=== PATIENT | female | born 1950 | race Caucasian/White ===

== ENCOUNTER 2021-03-08 17:16 | Inpatient (IN) ==
[2021-03-08 18:35] LABS: Basophils # (auto) 0.02 K/uL (0-0.2); Basophils % (auto) 0.2 %; Eosinophils # (auto) 0.46 K/uL (0-0.5); Eosinophils % (auto) 5.3 %; Hematocrit (blood only) 24.9 % (37-47); Hemoglobin 7.7 g/dL (12.0-16.0); Immature Granulocytes # (auto) 0.04 K/uL (0.00-0.02); Immature Granulocytes % (auto) 0.5 %; Lymphocytes # (auto) 1.21 K/uL (1.2-3.4); Mean Corpuscular Hemoglobin 27.9 pg (25-34); Mean Corpuscular Hgb Conc 30.9 g/dL (32-36); Mean Corpuscular Volume 90.2 fL (80-100); Mean Platelet Volume 8.6 fL (7.4-10.4); Monocytes # (auto) 0.81 K/uL (0.11-0.59); Monocytes % (auto) 9.4 %; Neutrophils # (auto) 6.11 K/uL (1.4-6.5); Neutrophils % (auto) 70.6 %; Platelet Count 390 K/uL (130-400); RDW Coefficient of Variation 16.5 % (11.5-14.5); Red Blood Count 2.76 M/uL (4.2-5.4); White Blood Count 8.65 K/uL (4.8-10.8)
[2021-03-08 18:54] LABS: RBC Morphology Unremarkable
--- NOTE | 2021-03-08 18:57 | Emergency Department Note ---
History of Present Illness General Chief complaint: Abnormal Labs/Diagnostic Testing Stated complaint: ABNORMAL LABS, LOW HBG, ABNORMAL KIDNEY FUNCTION Time Seen by Provider: 03/08/21 18:27 Source: patient Mode of arrival: ambulatory Limitations: no limitations History of Present Illness Provider complaint: Kidney failure Maximum Pain Intensity: 0 This is a 71-year-old female with only one kidney presents to the ED with a chief complaint of abnormal labs showing kidney failure. She had the labs done at [facility] outpatient clinic this morning. She states that she has been feeling okay other than some dizziness off and on which she related to possibly a low blood pressure. She denies having any urinary symptoms. She has not seen any black stools or blood in her stools. She states that she had her second Moderna Covid vaccine on the . Denies any other complaints at this time. [facility] labs suggest that her baseline creatinine is 1.8. Her creatinine today was 4.3 with a BUN of 55. Hemoglobin today was 7.3 this morning. Home Medications Medication Instructions Recorded Confirmed Type Tresiba U-100 Insulin 10 unit SUBCUT HS 10/04/19 01/12/20 History acetaminophen [Tylenol Extra 1,000 mg PO Q6H PRN 10/04/19 01/12/20 History Strength] amlodipine 5 mg PO QAM 10/04/19 01/12/20 History aspirin [Aspir-81] 81 mg PO QAM 10/04/19 01/12/20 History atorvastatin 40 mg PO QAM 10/04/19 01/12/20 History ferrous sulfate 325 mg PO QAM 10/04/19 01/12/20 History furosemide 40 mg PO QAM 10/04/19 01/12/20 History insulin aspart U-100 [Novolog 0 unit SUBCUT TID 10/04/19 01/12/20 History U-100 Insulin aspart] isosorbide mononitrate 30 mg PO QPM 10/04/19 01/12/20 History magnesium 250 mg PO QAM 10/04/19 01/12/20 History nitroglycerin [Nitrostat] 4 mg SUBLINGUAL UD PRN 10/04/19 01/04/20 History telmisartan 40 mg PO QAM 10/04/19 01/12/20 History vitamin B complex-folic acid [B 1 tab PO QPM 10/04/19 01/12/20 History Complex 1 (with folic acid)] allopurinol 100 mg PO QAM 01/04/20 01/12/20 History Allergies Allergy/AdvReac Type Severity Reaction Status Date / Time amoxicillin Allergy Severe ANAPHYLAXIS Verified 01/12/20 10:22 methimazole Allergy Severe Chest Pain Verified 01/12/20 10:22 vancomycin Allergy Severe TOAN Verified 01/12/20 10:22 SYNDROME lisinopril Allergy Mild Cough Verified 01/12/20 10:22 NSAIDS (Non-Steroidal AdvReac Unknown NOT TO Verified 01/12/20 10:22 Anti-Inflamma TAKE BECAUSE OF REYNAUDS verapamil AdvReac Unknown Unknown Verified 01/12/20 10:22 Past Med/Surg History Medical History (Updated 03/08/21 @ 19:58 by Louis Ku DO) Chronic kidney disease STAGE 4-F/U DR GARZA Diabetes mellitus, type 2 GERD (gastroesophageal reflux disease) Gout Hyperlipidemia Hypertension Neuropathy HANDS AND FEET Renal agenesis Surgical History H/O foot surgery RIGHT H/O foot surgery RIGHT GREAT TOE AMPUTATION History of bilateral cataract extraction History of bilateral tubal ligation History of colonoscopy History of tonsillectomy Family History Father Family history of diabetes mellitus Sister Family history of diabetes mellitus Brother Family history of diabetes mellitus Other No family history of adverse response to anesthesia Social History Smoking Status: Former smoker Second Hand Exposure: Yes (father/ smoked); Hx Alcohol Use: Yes Alcohol type: wine Hx Substance Use: No Preferred Language: Kazakh Communication Ability: Effective Paper Slitter Required: No Beliefs That Will Affect Care: None Current Living Situation: Spouse Feels Safe at Home: Yes Assistive Devices: Glasses Review of Systems A total of 10 systems reviewed and were otherwise negative Physical Exam Vital Signs Vital Signs - 24 hr 03/08/21 17:18 03/08/21 18:44 Temperature 36.8 C 36.5 C Temperature Source Oral Oral Pulse Rate 95 H Pulse Rate [Left Finger] 87 Pulse Rhythm [Left Finger] Regular Pulse Strength [Left Finger] Normal Respiratory Rate 18 12 Respiratory Effort / Characteristics Non-Labored Non-Labored Respiratory Depth Normal Normal Respiratory Pattern Regular Regular Blood Pressure 147/73 H Blood Pressure [Left Arm] 154/74 H Blood Pressure Mean 97 Blood Pressure Mean [Left Arm] 100 Blood Pressure Position Sitting Blood Pressure Position [Left Arm] Sitting Pulse Oximetry 98 100 Oxygen Delivery Method Room Air Room Air Sepsis Recent Fever Within 48 Hours No Sepsis New/Unexplained Change in Mental Status No Sepsis Action Taken by Nursing No Action Required CONSTITUTIONAL/VITAL SIGNS: Reviewed / noted above. GENERAL: Non-toxic in appearance. INTEGUMENTARY: Warm, dry, and [place]. HEAD: Normocephalic. EYES: without scleral icterus or trauma. ENT/OROPHARYNX: clear and moist. LYMPHADENOPATHY/NECK: Is supple without lymphadenopathy or meningismus. RESPIRATORY: Lungs clear and equal. CARDIOVASCULAR: Regular rate and rhythm. GI/ABDOMEN: Soft and nontender. No organomegaly or pulsatile mass. No rebound or guarding. Normal bowel sounds. EXTREMITIES: Warm and well perfused. BACK: No CVA tenderness. NEUROLOGICAL: Intact without focal deficits. PSYCHIATRIC: normal affect. MUSCULOSKELETAL: Normally developed with good muscle tone. TRIAGE NURSING DOCUMENTATION REVIEWED. Course Administered Medications Sodium Chloride (Nss 1000ml) 1,000 mls @ 999 mls/hr IV .Q1H1M ONE Stop: 03/08/21 20:37 Last Admin: 03/08/21 19:52 Dose: 999 mls/hr Documented by: [id number] Medical Decision Making Differential Diagnosis Differential includes acute coronary syndrome, myocardial infarction, CVA, TIA, anemia, infection, pneumonia, UTI, pyelonephritis, poor nutrition, dehydration, electrolyte disturbance,hypoglycemia. Medical Records Attestation: I reviewed the patient's medical records. Home Medications Current Medication List: was personally reviewed by me Laboratory Data Attestation: I reviewed the patient's lab results. Result diagrams: 03/08/21 18:25 03/08/21 18:25 Lab Results 03/08/21 03/08/21 03/08/21 Range/Units 18:25 18:25 18:52 WBC 8.65 (4.8-10.8) K/uL RBC 2.76 L (4.2-5.4) M/uL Hgb 7.7 L (12.0-16.0) g/dL Hct 24.9 L (37-47) % MCV 90.2 (80-100) fL MCH 27.9 (25-34) pg MCHC 30.9 L (32-36) g/dL RDW Std Deviation 54.0 H (36.4-46.3) fL RDW Coeff of [place] 16.5 H (11.5-14.5) % Plt Count 390 (130-400) K/uL MPV 8.6 (7.4-10.4) fL Immature Gran % (Auto) 0.5 % Neut % (Auto) 70.6 % Lymph % (Auto) 14.0 % [place] % (Auto) 9.4 % Eos % (Auto) 5.3 % Baso % (Auto) 0.2 % Neut # (Auto) 6.11 (1.4-6.5) K/uL Lymph # (Auto) 1.21 (1.2-3.4) K/uL [place] # (Auto) 0.81 H (0.11-0.59) K/uL Eos # (Auto) 0.46 (0-0.5) K/uL Baso # (Auto) 0.02 (0-0.2) K/uL Immature Gran # (Auto) 0.04 H (0.00-0.02) K/uL RBC Morphology Unremarkable Sodium 139 (136-145) mmol/L Potassium 3.4 L (3.5-5.1) mmol/L Chloride 103 (98-107) mmol/L Carbon Dioxide 29 (21-32) mmol/L Anion Gap 7.0 (3-11) BUN 58 H (7-18) mg/dl Creatinine 4.33 H (0.6-1.2) mg/dl Est Cr Clr Drug Dosing 12.2 ml/min Est GFR ( Amer) 11.0 Est GFR (Non-Af Amer) 9.5 BUN/Creatinine Ratio 13.3 (10-20) Glucose 266 H (70-99) mg/dl Calcium 12.5 H* (8.5-10.1) mg/dl Total Bilirubin 0.3 (0.2-1) mg/dl AST 11 L (15-37) U/L ALT 17 (12-78) U/L Alkaline Phosphatase 111 (45-117) U/L Total Protein 7.3 (6.4-8.2) gm/dl Albumin 3.3 L (3.4-5.0) gm/dl Globulin 4.0 (2.5-4.0) gm/dl Albumin/Globulin Ratio 0.8 L (0.9-2) Blood Type O Positive Antibody Screen NEGATIVE ECG Data Attestation: I personally reviewed and interpreted this ECG as follows: Indication: + weakness Rate (beats per minute): 83 Rhythm: + normal sinus ECG Intervals/blocks: + First degree AV block, + Right Bundle branch block and + Normal QT-c ECG ST segments: no ST elevation ECG Findings: no PVCs MDM Narrative The patient'sPatient presents to the ED with acute kidney failure based on laboratory studies this morning. Details are noted above. Creatinine is 1.8 based on labs from April 2020 from the [employer] [facility]. Her creatinine today is 4.3 with a BUN of 55. Hemoglobin was 7.3 this morning. It is 7.7 now. Her twelve-lead EKG shows a sinus rhythm at a rate of 83 with a first-degree AV block and right bundle branch block. The patient's BUN is 58 and creatinine is 4.3 here. Glucose is 266 and calcium was 12.5. Patient was typed and screened. She was given a liter normal saline IV. She will be seen by the hospitalist for further inpatient evaluation and care. Impression & Plan Acute renal failure, Acute hyperglycemia, Hypercalcemia Discharge Plan Visit Data Chief Complaint: Abnormal Labs/Diagnostic Testing Stated Complaint: ABNORMAL LABS, LOW HBG, ABNORMAL KIDNEY FUNCTION ED Provider: Louis Ku Discharge Problem: Acute renal failure, Acute hyperglycemia, Hypercalcemia Patient Disposition: Being Evaluated by Hospitalist Forms Stand Alone Forms: [facility] Prescriptions Prescriptions: No Action aspirin [Aspir-81] 81 mg Tablet,Delayed Release (Dr/Ec) 81 mg PO QAM RF: 0 vitamin B complex-folic acid [B Complex 1 (with folic acid)] 0.4 mg Tablet 1 tab PO QPM RF: 0 furosemide 40 mg Tablet 40 mg PO QAM RF: 0 atorvastatin 40 mg Tablet 40 mg PO QAM RF: 0 isosorbide mononitrate 30 mg Tablet Extended Release 24 Hr 30 mg PO QPM RF: 0 amlodipine 5 mg Tablet 5 mg PO QAM RF: 0 insulin aspart U-100 [Novolog U-100 Insulin aspart] 100 unit/mL Solution 0 unit SUBCUT TID RF: 0 magnesium 250 mg Tablet 250 mg PO QAM RF: 0 telmisartan 20 mg Tablet 40 mg PO QAM RF: 0 Tresiba U-100 Insulin 100 unit/mL Solution 10 unit SUBCUT HS RF: 0 acetaminophen [Tylenol Extra Strength] 500 mg Tablet 1,000 mg PO Q6H PRN (Reason: Pain) RF: 0 ferrous sulfate 325 mg (65 mg iron) Tablet 325 mg PO QAM RF: 0 nitroglycerin [Nitrostat] 0.4 mg Tablet, Sublingual 4 mg sublingual UD PRN (Reason: Pain) RF: 0 allopurinol 100 mg Tablet 100 mg PO QAM RF: 0 Referrals Referrals: Tara Orta MD [Primary Care Provider] -
[2021-03-08 19:26] LABS: Albumin Globulin Ratio 0.8 (0.9-2); Albumin Level 3.3 gm/dl (3.4-5.0); BUN Creatinine Ratio 13.3 (10-20); Bilirubin,Total 0.3 mg/dl (0.2-1); Calcium 12.5 mg/dl (8.5-10.1); Creatinine Clr Calc Pharmacy 12.2 ml/min; Est GFR (Non-African American) 9.5; Potassium 3.4 mmol/L (3.5-5.1); Total Protein 7.3 gm/dl (6.4-8.2)
[2021-03-08] MEDS ORDERED: SODIUM CHLORIDE 0.9% 1000ML 1,000 ML IV ONE (19:37)
[2021-03-08 21:50] LABS: Influenza A virus by PCR Negative (Neg); Influenza B virus by PCR Negative (Neg); RSV by PCR Negative (Neg); SARS CoV2 RNA(COVID-19) InHosp NEGATIVE (Negative)
[2021-03-08] MEDS ORDERED: POLYETHYLENE (MIRALAX) 17 GM PACK PO PRN (22:38)
[2021-03-08] MEDS ORDERED: FAMOTIDINE 20 MG TAB PO PRN (22:38)
[2021-03-08] MEDS ORDERED: NITROGLYCERIN SL 0.4 MG/TAB TAB SL PRN (22:38)
[2021-03-08 22:40] LABS: Appearance Urine Clear (Clear); Bacteria Urine Automated Negative (Negative); Bilirubin Urine Negative (Negative); Blood Urine Trace (Negative); Cast Urine Automated 0 /lpf (0-5); Color Urine Yellow; Epithelial Cell Urine Auto 20-30 /lpf (0-5); Glucose Urine UA 2+ (Negative); Ketones Urine Negative (Negative); Leukocyte Esterase Urine Negative (Negative); Nitrite Urine Negative (Negative); Protein Urine 1+ (Negative); RBC Urine Automated 0-4 /hpf (0-4); Specific Gravity Urine 1.013 (1.000-1.030); Urobilinogen Urine Negative (Negative)
[2021-03-08] MEDS ORDERED: GLUCOSE 40% GEL 15 GM TUBE PO PRN (23:15)
[2021-03-08] MEDS ORDERED: DEXTROSE 50% 50 ML SYRINGE IV PRN (23:15)
[2021-03-08] MEDS ORDERED: GLUCAGON FOR INJ 1 MG VIAL SQ PRN (23:15)
[2021-03-08] MEDS ORDERED: CARBOHYDRATES FOR HYPOGLYCEMIA PO PRN (23:15)
[2021-03-08] MEDS ORDERED: GLUCOSE 10 TABS/TUBE PO PRN (23:15)
[2021-03-08] MEDS: INSULIN GLARGINE SOLOSTAR 100 UNITS/ML 3 ML PEN SC SCH (23:19)
[2021-03-08] MEDS: ISOSORBIDE MONO EXTENDED REL 30 MG TABCR PO SCH (23:24)
[2021-03-08] MEDS: VITAMIN B COMPLEX TAB PO SCH (23:24)
[2021-03-08] MEDS: SODIUM CHLORIDE 0.9% 1000ML 1,000 ML IV SCH (23:25)
--- NOTE | 2021-03-08 23:33 | History and Physical Report ---
DATE OF ADMISSION: 03/08/2021 CHIEF COMPLAINT: Abnormal labs. HISTORY OF PRESENT ILLNESS: This is a 71-year-old female with past medical history significant for type 2 diabetes, microalbuminuria diabetic nephropathy type 2, hyperlipidemia, hyperuricemia, high triglycerides, chronic CAD, history of chronic kidney disease stage IV, patent foramen ovale, hypertension, heart murmur, GERD, history of peripheral sensory neuropathy, anemia of chronic kidney disease, history of MRSA infection, history of smoking in the past, history of polypharmacy, who lives with her . Was sent to the hospital because of abnormal labs. The patient did not follow up for one year. Her labs were done today, it showed creatinine of 4.3, calcium of 11.6, hemoglobin of 7.3. Hemoglobin was 12.7 in November of 2019. Creatinine was 1.8 in April of 2020 and calcium was 9.4 in April 2020, so she was sent to the hospital. The patient is currently resting comfortably and hemodynamically stable, saturating fine. Denies any headache. She felt dizzy last month, but that has resolved. No blurred visions. No earache, no runny nose. She has a chronic runny nose, no sore throat. She had a cough a couple of days ago, but that got resolved. She thinks this is from her Moderna vaccine second dose which she received on 02/18/2021 as per the patient. Currently no cough, no fever, no chills. She gets shortness of breath on exertion. She had chest pain also a few days ago, thought to be from her vaccine, but resolved now. No nausea, no vomiting, no diarrhea, no constipation. She says stools are always black because of the iron tablets. Normal micturition. No blood in the stools. No abdominal pain. Her right lower extremity is always swollen. No erythema seen. . She has neuropathy and sometimes she has to use cane for ambulating. Appetite is good. No dysphagia. The patient states she was started on Ozempic for diabetes 1 year ago and she is tolerating okay. Sugars are running okay at home. Blood pressure is running okay at home as per the patient.Denies any intake of nsaid's ALLERGIES: NSAIDS, AMOXICILLIN, METHIMAZOLE, VANCOMYCIN, VERAPAMIL, LISINOPRIL. PAST MEDICAL HISTORY: As mentioned above. PAST SURGICAL HISTORY: Colonoscopy, ligation of oviducts, partial amputation of second right foot, tonsillectomy. MEDICATIONS: Tylenol 1000 mg p.o. q. 6 hours p.r.n., allopurinol 100 mg p.o. a.m., amlodipine 5 mg p.o. a.m., aspirin 81 mg p.o. a.m., B complex 1 tablet p.o. at bedtime, Crestor 40 mg p.o. daily, famotidine 20 mg p.o. daily p.r.n., ferrous sulfate 325 mg p.o. a.m., Lasix 40 mg p.o. a.m., NovoLog 9 units with breakfast and 14 units with lunch and 12 units with evening meal, isosorbide mononitrate 30 mg p.o. q.p.m., magnesium 250 mg p.o. a.m., nitroglycerin 0.4 mg sublingual p.r.n., Ozempic 0.5 mg subcutaneous weekly, telmisartan 40 mg p.o. a.m., Tresiba 10 units subcutaneous at bedtime, vitamin B complex 1 tablet a.m. FAMILY HISTORY: Significant for paternal aunt has breast cancer; brother has diabetes; father has diabetes; brother has end-stage renal disease from diabetes; father had stroke. SOCIAL HISTORY: . Former smoker, quit in 1968, smoked half pack a day for 0.5 years. Alcohol rarely. No drug use. REVIEW OF SYSTEMS: As per HPI. Rest of review of systems negative. PHYSICAL EXAMINATION: GENERAL: The patient is of moderate build, not in acute distress. VITAL SIGNS: Temperature 36.5, pulse 87, respiratory rate 12, blood pressure 154/74, oxygen 100% on room air. HEENT: Pupils equal, round, reactive to light. Oral mucosa moist. NECK: No JVD, no neck masses. CARDIOVASCULAR: S1, S2 heard, regular rate and rhythm, no murmur, no gallop. RESPIRATORY SYSTEM: Normal AP diameter. No accessory muscle use. No wheezing, no crackles. ABDOMEN: Soft, bowel sounds present, nontender. No distention. CENTRAL NERVOUS SYSTEM: Cranial nerves II-XII grossly intact, nonfocal. EXTREMITIES: Edema present in the right lower extremity. No erythema seen. LABORATORY DATA: WBC 8.6, hemoglobin 7.7, hematocrit 24.9, platelets 390. Sodium 139, potassium 3.4, chloride 103, bicarbonate 29, BUN 58, creatinine 4.3, serum glucose 266, calcium 12.5, total bilirubin 0.3, AST 11, ALT 17, alkaline phosphatase 111. EKG: Sinus rhythm with first-degree AV block at a rate of 83, right bundle branch block and left anterior fascicular block, QTC of 509. ASSESSMENT AND PLAN: This is a 71-year-old female who presents with acute kidney injury, hypercalcemia and anemia. 1. Acute kidney injury on chronic kidney disease stage IV: Baseline creatinine was 1.8 last year, it was 4.3 today. Etiology unclear. Will go ahead and check protein/creatinine ratio. Follow the urinalysis. Hold her home medication of losartan and Lasix. Avoid nephrotoxic agents. Starting on fluids, normal saline 125 mL per hour. The patient also has a solitary kidney. Right kidney is hypertrophied. Will get a renal ultrasound. Nephrology consulted and notified. Ozempic can cause SHANNAN from dehydration from nausea/vomiting. But patient don't have any GI symptoms. Closely monitor in the tele floor. 2. Hypercalcemia: Calcium is 12.5. The patient is not on any calcium supplement at home. We will check vitamin D levels, PTH levels. We will follow chest x-ray, TSH. Starting on fluids, normal saline 125 mL per hour and follow the repeat labs in a.m. The patient does not have complaint of any pain. We will keep multiple myeloma in differentials. Her LFTs are okay. 3. Anemia: The patient has history of anemia of chronic kidney disease. The patient is on iron supplements. Her hemoglobin was 12.7 in November of 2019 and currently today is 7.7. The patient denies any obvious signs of bleeding. We will check fecal occult blood, check iron studies, vitamin B12, and folate levels. Will follow the repeat labs. Continue iron supplement. Currently hemodynamically stable. 4. Diabetes: We will hold Ozempic. Continue her Tresiba. Placed on insulin sliding scale. Follow the blood sugars, follow HbA1c level. 5. History of hypertension: Holding telmisartan for now. Continue amlodipine and isosorbide mononitrate. Holding Lasix. Will monitor blood pressure. 6. History of hyperlipidemia: Continue Crestor. 7. History of gout: Continue allopurinol. 8. Prolonged QTc: We will follow the repeat EKG, avoid QT prolonging drugs. 9. History of coronary artery disease: Currently asymptomatic. Continue her aspirin and statin. Her echo from May 2019 shows EF of 65% and moderately concentric LVH, LV wall thickness. 10. History of gastroesophageal reflux disease: Continue on Pepcid as needed. 11. History of chronic osteomyelitis, status post right toe amputation in July 2019. 12. History of right atrophic kidney. 13. History of peripheral neuropathy and poor ambulatory status.Pt/Ot prior to discharge 14. Deep venous thrombosis prophylaxis: Sequential compression devices for now. 15. Disposition: Closely monitor in the tele floor. Level 1 full code as per my discussion with the patient. PT and OT prior to discharge. Social service to help with discharge planning. MTDD
[2021-03-08] MEDS: INSULIN ASPART 100 UNITS/ML 3 ML PEN SC SCH (23:36)
[2021-03-09 02:44] LABS: Creatinine Urine Random 43.2 mg/dl; Protein Creatinine Ratio Urine 1.8 (0-0.2); Total Protein Urine Random 76.8 mg/dl (0-11.9)
[2021-03-09] MEDS: ACETAMINOPHEN 325 MG TAB PO PRN ×2 (03:25→21:16)
[2021-03-09] MEDS ORDERED: POTASSIUM CHLORIDE CRTAB 20 MEQ TABCR PO STA (05:14)
[2021-03-09 05:39] LABS: Basophils # (auto) 0.03 K/uL (0-0.2); Basophils % (auto) 0.2 %; Eosinophils # (auto) 0.44 K/uL (0-0.5); Eosinophils % (auto) 3.6 %; Hematocrit (blood only) 24.3 % (37-47); Hemoglobin 7.5 g/dL (12.0-16.0); Immature Granulocytes # (auto) 0.04 K/uL (0.00-0.02); Immature Granulocytes % (auto) 0.3 %; Lymphocytes # (auto) 1.26 K/uL (1.2-3.4); Lymphocytes % (auto) 10.4 %; Mean Corpuscular Hemoglobin 27.6 pg (25-34); Mean Corpuscular Hgb Conc 30.9 g/dL (32-36); Mean Corpuscular Volume 89.3 fL (80-100); Mean Platelet Volume 8.3 fL (7.4-10.4); Monocytes # (auto) 1.08 K/uL (0.11-0.59); Monocytes % (auto) 8.9 %; Neutrophils # (auto) 9.24 K/uL (1.4-6.5); Neutrophils % (auto) 76.6 %; Platelet Count 359 K/uL (130-400); RDW Coefficient of Variation 16.5 % (11.5-14.5); Red Blood Count 2.72 M/uL (4.2-5.4); White Blood Count 12.09 K/uL (4.8-10.8)
[2021-03-09 06:13] LABS: RBC Morphology Unremarkable
[2021-03-09 06:17] LABS: Alanine Aminotransferase 17 U/L (12-78); Alkaline Phosphatase 101 U/L (45-117); Aspartate Aminotransferase 9 U/L (15-37); BUN Creatinine Ratio 14.8 (10-20); Bilirubin Direct < 0.1 mg/dl (0-0.2); Bilirubin,Total 0.3 mg/dl (0.2-1); Blood Urea Nitrogen 57 mg/dl (7-18); Calcium 10.2 mg/dl (8.5-10.1); Carbon Dioxide 27 mmol/L (21-32); Chloride 109 mmol/L (98-107); Creatinine Clr Calc Pharmacy 13.9 ml/min; Est GFR (African American) 12.8; Ferritin 27.4 ng/ml (8-388); Glucose 141 mg/dl (70-99); Iron 23 mcg/dl (35-150); Magnesium 2.9 mg/dl (1.8-2.4); Potassium 3.8 mmol/L (3.5-5.1); Sodium 141 mmol/L (136-145); Total Protein 6.6 gm/dl (6.4-8.2); Transferrin 237 mg/dl (200-360)
[2021-03-09] MEDS: SODIUM CHLORIDE 0.9% 1000ML 1,000 ML IV SCH ×3 (06:31→21:49)
[2021-03-09 06:39] LABS: Folate (Folic Acid) > 20.00 ng/ml (>5.38); Vitamin B12 947 pg/ml (193-986)
[2021-03-09 07:24] LABS: Estimated Average Glucose 146 mg/dl; Hemoglobin A1C 6.7 % (4.5-5.6)
--- NOTE | 2021-03-09 07:44 | Nephrology Consultation ---
Date of Consultation March 09, 2021 Assessment & Plan (1) Acute on chronic renal failure: in setting of essentially solitary kidney w/ baseline CKD 4 e GFR about 20 ml/min at baseline and historically 1/2 gm daily proteinuria > OP labs w/ creatinine 4.3 on March 08 and on presentation now 1.8 gm proteinuria in setting of new onset hypercalcemia and markedly worsened chronic anemia. ?relation to ozempic dose -- we have not had OP labs as indicated/desired; she did however have 1 set of labs after starting this medication a year back in April 2020 with creatinine 1.8 at the time. no urgent need for dialysis but cannot rule out need; she is interested in peritoneal dialysis if the need arises. response to IVF is promising though preliminary; differential >> SHANNAN on CKD or CKD progression ? related to increased semaglutide; concern also for multiple myeloma w/ renal involvement; or likeliest simply progression of advanced CKD in setting of DM, solitary kidney (though other lab parameters unexplained in this scenario) -diet appropriate -eval for myeloma as below -cont NS current rate -daily bmp Present on Admission?: Yes (2) Hypercalcemia: improving w/ NS- cCa today 11; await GLO labs; daily bmp; cont to avoid D supplements and Ca rich meds; w/ anemia and worse renal failure and this finding worry about myeloma; pt w/ 500 mg hx of proteinuria historically -cont ns, f/u labs -recheck proteinuria status now 2 gm (glucosuria may have a role; was 234 albuminuria [employer], much lower proteinuria would be expected than 2 gm but myeloma can present this way) >> have ordered kappa lambda light chains, serum YOLANDA, beta-2 microglobulin serum and urine, protein electrophoresis serum and urine Present on Admission?: Yes (3) Anemia: Unremarkable colonoscopy apart from adenomatous polyp for 5-year follow-up in January 2020. severe iron deficinecy (7% t stn on OP labs). ?cause -FOBT Hemoglobin generally in the 11's presenting hemoglobin low sevens. -agree w/ IV iron -low threshold for peripheral smear due to elevated ANC, relative monocytosis and some immature granulocytes in the setting of significantly worsened anemia -Ordered reticulocyte count as well as daily hgb -transfuse prn Present on Admission?: Yes (4) Abnormal renal ultrasound: Her right kidney has further atrophied and even disappeared in the decade since it was last imaged. Multiple renal cysts on the left with possible kidney stone. She has very little normal renal tissue and minimal renal reserves Present on Admission?: Yes History of Present Illness Reason for Consultation: hypercalcemia, SHANNAN on CKD Requesting Physician: Dr Aleman Attending Physician: Erasmo Molina, DO History of Present Illness 71 y/o F admitted last evening after our office sent her to ER d/t outpatient labs with acute on chronic renal failure and other lab abnormalities. Her baseline creatinine is labile but is generally somewhere in the low 2's; notably she had not had any outpt labs since 04/2020 despite plan to do so. Her creatinine yesterday was 4.3 w/ Ca 11.6; hgb 7.3 down from previous values gener ally in the . She did have an episode of SHANNAN on 08/2019. Past medical history includes atrophic right kidney, CKD 4/5, hypertension, diabetes, neuropathy with resultant ambulatory dysfunction, gout. Her Ozempic dose was doubled in November of this year but she did not tolerate it and went back to previous dose she'd been on since starting medication 01/2020. She had an essentially unremarkable colonoscopy January 2020 with an adenomatous polyp for repeat study in 5 years. On 2009 renal ultrasound, right kidney dimensions were 5.5 x 4 cm, atrophic. She has been feeling relatively well >> had second covid vaccine, remains active cleaning her home and cooking for her . No regular exercise program. She has had an approximately 30 pound weight loss over the past year, which she attributed to Ozempic. No fevers or chills. No night sweats. No shortness of breath. Does endorse fatiguing more quickly than previously but not extremely so. No voiding concerns. No bleeding. She does have a rash on her bilateral legs in the area of the knees which came on shortly after second Covid vaccine in mid February. Was initially pruritic but no longer. No NSAIDs. Allergies Allergy/AdvReac Type Severity Reaction Status Date / Time amoxicillin Allergy Severe ANAPHYLAXIS Verified 03/08/21 20:00 methimazole Allergy Severe Chest Pain Verified 03/08/21 20:00 vancomycin Allergy Severe TOAN Verified 03/08/21 20:00 SYNDROME lisinopril Allergy Mild Cough Verified 03/08/21 20:00 NSAIDS (Non-Steroidal AdvReac Unknown NOT TO Verified 03/08/21 20:00 Anti-Inflamma TAKE BECAUSE OF REYNAUDS verapamil AdvReac Unknown Unknown Verified 03/08/21 20:00 Home Medications Medication Instructions Recorded Confirmed Type Tresiba U-100 Insulin 10 unit SUBCUT HS 10/04/19 03/08/21 History acetaminophen [Tylenol Extra 1,000 mg PO Q6H PRN 10/04/19 03/08/21 History Strength] amlodipine 5 mg PO QAM 10/04/19 03/08/21 History aspirin [Aspir-81] 81 mg PO QAM 10/04/19 03/08/21 History ferrous sulfate 325 mg PO QAM 10/04/19 03/08/21 History furosemide 40 mg PO QAM 10/04/19 03/08/21 History insulin aspart U-100 [Novolog 0 unit SUBCUT TID 10/04/19 03/08/21 History U-100 Insulin aspart] isosorbide mononitrate 30 mg PO QPM 10/04/19 03/08/21 History magnesium 250 mg PO QAM 10/04/19 03/08/21 History nitroglycerin [Nitrostat] 4 mg SUBLINGUAL UD PRN 10/04/19 03/08/21 History telmisartan 40 mg PO QAM 10/04/19 03/08/21 History vitamin B complex-folic acid [B 1 tab PO QPM 10/04/19 03/08/21 History Complex 1 (with folic acid)] allopurinol 100 mg PO QAM 01/04/20 03/08/21 History B complex-vitamin C-folic acid 1 tab PO HS 03/08/21 03/08/21 History [Katty-Joya] Crestor 40 mg PO DAILY 03/08/21 03/08/21 History famotidine [Pepcid AC] 20 mg PO DAILY PRN 03/08/21 03/08/21 History semaglutide [Ozempic] 0.5 mg SUBCUT WK 03/08/21 03/08/21 History Patient History Medical History (Updated 03/09/21 @ 13:06 by Ale Izaguirre MD, PhD) Atrophy of right kidney 2009 [facility]G u/s w/ R kidney 5.5 x 4 cm Chronic kidney disease STAGE 4-F/U DR GARZA Diabetes mellitus, type 2 GERD (gastroesophageal reflux disease) Gout Hyperlipidemia Hypertension Neuropathy HANDS AND FEET Renal cyst, acquired, left Surgical History H/O foot surgery RIGHT H/O foot surgery RIGHT GREAT TOE AMPUTATION History of bilateral cataract extraction History of bilateral tubal ligation History of colonoscopy History of tonsillectomy Family History Father Family history of diabetes mellitus Sister Family history of diabetes mellitus Brother Family history of diabetes mellitus Other No family history of adverse response to anesthesia Social History Smoking Status: Former smoker Second Hand Exposure: Yes (father/ smoked); Hx Alcohol Use: Yes Alcohol type: wine Hx Substance Use: No Preferred Language: Sami Communication Ability: Effective Tank Pumper Panelboard Required: No Beliefs That Will Affect Care: None Current Living Situation: Spouse Current Living Situation Comment: Lives at home with Feels Safe at Home: Yes Safety Concerns: Feels Safe At This Time Assistive Devices: Cane and Glasses Assistive Devices Comment: Intermittent use of cane r/t neuropathy Review of Systems Review of Systems: All systems reviewed & are unremarkable except as noted in HPI & below Physical Exam Constitutional: well developed, well nourished, + obese and cooperative; no acute distress Eyes: EOM intact bilaterally ENMT: Ears: no external ear abnormality Nose: no external nose abnormality Mouth: + dry oral mucous membranes Neck: no nuchal rigidity Respiratory: normal respiratory effort; no respiratory distress and no cough Auscultation: lungs clear to auscultation bilaterally and + diminished lung sounds Cardiovascular: Rate/Rhythm: regular rate and regular rhythm Heart Sounds: + murmur Extremities: no edema Gastrointestinal (Abdomen): Inspection/Auscultation: abdomen normal to inspection and normal bowel sounds; abdomen not distended Percussion/Palpation: abdomen soft; abdomen nontender Musculoskeletal: Extremities: strength 5/5 throughout Skin: + rash (as below) Multiple 4 x 2 cm well demarcated salmon-colored plaques in the popliteal fossae bilaterally and on her lateral thighs; some scale Neurologic: frank, fluent speech, no tremor Psychiatric: A+Ox3, euthymic affect Speech: normal rate/rhythm/volume of speech Insight: good insight Judgement: good judgement Genitourinary: No Walter Results & Data ([facility]) Vital Signs (Past 12 Hours) Vital Signs Temp Pulse Pulse Pulse Resp BP Pulse Ox 03/09/21 03:11 36.9 C 90 18 164/71 H 91 03/08/21 23:01 80 03/08/21 22:46 36.5 C 03/08/21 22:38 36.8 C 88 88 16 180/75 H 95 Pulse Ox 03/09/21 03:11 03/08/21 23:01 03/08/21 22:46 03/08/21 22:38 95 Laboratory Results 03/09/21 05:23 03/09/21 05:23 Serum albumin 3.0 Renal osteodystrophy labs pending except 25 hydroxy vitamin D 16, PTH 23, TSH within normal limits Urinalysis: Clear yellow urine specific gravity 1013 pH 7; 1+ protein 2+ glucose trace blood; 20-30 epithelial cells per high-powered field; all other indices negative Protein to creatinine spot ratio 1.8 g Diagnostic Findings renal u/s this admission FINDINGS: The right kidney was not visualized. The left kidney measures 10.9 cm in length. The left kidney is mildly echogenic and lobulated. Several renal cysts are suspected, the largest of which measures 7 mm. There is a 4 mm lower pole echogenic left renal focus. This could present a calculus or vascular reflector. The left ureteral jet was visualized. IMPRESSION : 1. Nonvisualization of the right kidney 2. No evidence of left-sided hydronephrosis 3. Slight increase in left renal cortical echogenicity suggesting medical renal disease CXR > no acute process (1) Anemia Anemia type: unspecified type Qualified Code(s): D64.9 - Anemia, unspecified (2) Acute on chronic renal failure Acute renal failure type: unspecified Chronic kidney disease stage: stage 4 (severe) Qualified Code(s): N17.9 - Acute kidney failure, unspecified; N18.4 - Chronic kidney disease, stage 4 (severe)
--- NOTE | 2021-03-09 08:13 | Hospitalist Progress Note ---
Date of Service March 09, 2021 Assessment & Plan (1) Acute renal failure: (2) Hypercalcemia: (3) Neuropathy of foot: (4) CAD (coronary artery disease): (5) DM (diabetes mellitus) type II controlled with renal manifestation: (6) HTN (hypertension): (7) HLD (hyperlipidemia): (8) CKD (chronic kidney disease) stage 3, GFR 30-59 ml/min: ASSESSMENT AND PLAN: This is a 71-year-old female who presents with acute kidney injury, hypercalcemia and anemia. 1. Acute kidney injury on chronic kidney disease stage IV: Baseline creatinine was 1.8 last year, it was 4.3 on admission and trending down. Check protein/creatinine ratio. Follow the urinalysis. Hold her home medication of losartan and Lasix. Avoid nephrotoxic agents. Started on fluids, normal saline 125 mL per hour. The patient also has a solitary kidney. Right kidney is hypertrophied. Renal ultrasound. Nephrology consulted and notified. Ozempic can cause SHANNAN from dehydration from nausea/vomiting. But patient didn't have any GI symptoms. Tele floor. 2. Hypercalcemia: Calcium is 12.5 and trending down. The patient is not on any calcium supplement at home. Vitamin D levels are low, PTH. We will follow chest x-ray, TSH. Starting on fluids, normal saline 125 mL per hour and follow the repeat labs in a.m. The patient does not have complaint of any pain. We will keep multiple myeloma in differentials. Her LFTs are okay. 3. Anemia: The patient has history of anemia of chronic kidney disease. The patient is on iron supplements. Her hemoglobin was 12.7 in November of 2019 and currently today is 7.7. The patient denies any obvious signs of bleeding. We will check fecal occult blood, Iron is low despite PO Fe, vitamin B12, and folate levels. IV iron. Hold PO Fe, Currently hemodynamically stable. 4. Diabetes: We will hold Ozempic. Continue her Tresiba. Placed on insulin sliding scale. Follow the blood sugars, follow HbA1c level. 5. History of hypertension: Holding telmisartan for now. Continue amlodipine and isosorbide mononitrate. Holding Lasix. Will monitor blood pressure. 6. History of hyperlipidemia: Continue Crestor. 7. History of gout: Continue allopurinol. 8. Prolonged QTc: We will follow the repeat EKG, avoid QT prolonging drugs. 9. History of coronary artery disease: Currently asymptomatic. Continue her aspirin and statin. Her echo from May 2019 shows EF of 65% and moderately concentric LVH, LV wall thickness. 10. History of gastroesophageal reflux disease: Continue on Pepcid as needed. 11. History of chronic osteomyelitis, status post right toe amputation in July 2019. 12. History of right atrophic kidney. 13. History of peripheral neuropathy and poor ambulatory status.Pt/Ot prior to discharge 14. Deep venous thrombosis prophylaxis: Sequential compression devices for now. 15. Disposition: tele floor. Level 1 full code as per my discussion with the patient. PT and OT prior to discharge. Social service to help with discharge planning. ROS-No Headache, No Visual Changes, No Nausea, No Vomiting, No Fever, No Chills, No Neck Pain or Stiffness, No Chest Pain, No Palpitations, No SOB, No SUAREZ, No Cough, No Sputum, No Wheezing, No Abdominal Pain, No Diarrhea, No Hematemesis, No Hemoptysis, No Unexpected Weight Loss, No Flank pain, No Melena, No Hematochezia, No Frequency, No Urgency, No Burning, No Hematuria, No Rashes, No Diaphoresis. Appetite is Normal Physical Exam Gen-AAO x 3, NAD, Afebrile, obese Head-NCAT, EOMI, PERRLA, Anicteric Sclera, No Posterior Pharyngeal Erythema Neck-Supple, No JVD, No Thyromegaly, No Masses, No LAD, No Bruits Lungs-Clear to Auscultation Bilaterally, No Rales, No Rhonchi, No Wheezing, No Crepitus Chest-No S4, +S1, +S2, No S3, No Murmurs, No Rubs, No Gallops, No Ectopy Abdomen-Soft, Bowel Sounds Present, Non Tender, Non Distended, No Hepatomegaly, No Splenomegaly, No Palpable Masses, No Rebound, No Rigidity, No Guarding Musculoskeletal-Full Range of Motion Bilaterally, No CVAT Extremities-No Cyanosis, No Clubbing, No Edema Nuero-Cranial Nerves II-XII grossly intact, Motor WNL, DTRs WNL, Strength WNL, Non Focal Psych-Normal Mood Admission and Anticipated Discharge Date Admission Date: March 08, 2021 Results & Data Results & Data ([facility]) Vital Signs (Past 12 Hours) Vital Signs Temp Pulse Pulse Pulse Resp BP Pulse Ox 03/09/21 07:44 37.0 C 97 H 18 151/63 H 100 03/09/21 03:11 36.9 C 90 18 164/71 H 91 03/08/21 23:01 80 03/08/21 22:46 36.5 C 03/08/21 22:38 36.8 C 88 88 16 180/75 H 95 Pulse Ox 03/09/21 07:44 03/09/21 03:11 03/08/21 23:01 03/08/21 22:46 03/08/21 22:38 95 (1) Acute renal failure Acute renal failure type: unspecified Qualified Code(s): N17.9 - Acute kidney failure, unspecified
[2021-03-09] MEDS: INSULIN ASPART 100 UNITS/ML 3 ML PEN SC SCH ×4 (08:31→21:13)
[2021-03-09] MEDS: ASPIRIN 81 MG ECTAB PO SCH (08:38)
[2021-03-09] MEDS: amLODIPine BESYLATE 5 MG TAB PO SCH (08:38)
[2021-03-09] MEDS: ROSUVASTATIN CALCIUM 20 MG TAB PO SCH (08:38)
[2021-03-09] MEDS: allopurinoL 100 MG TAB PO SCH (08:39)
--- NOTE | 2021-03-09 08:59 | XRay Report ---
XR chest 1V portable HISTORY: 71 years-old Female congestion? Acute cough with congestion COMPARISON: Chest radiograph 09/07/2013 TECHNIQUE: Portable AP view the chest FINDINGS: Cardiac silhouette is enlarged. No pneumothorax, pleural effusion, airspace consolidation or overt pu lmonary edema. Degenerative changes of the shoulders and spine. IMPRESSION: No acute process. ACT 112: Negative or not required by law. The above report was generated using voice recognition software. It may contain grammatical, syntax o r spelling errors. Electronically signed by: Aditya Mcfarland M.D. 03/09/2021 8:58 AM
[2021-03-09] MEDS ORDERED: FERROUS SULFATE 325 MG TAB PO SCH (09:00)
--- NOTE | 2021-03-09 09:35 | Ultrasound Report ---
EXAMINATION: RENAL ULTRASOUND CLINICAL HISTORY: Acute renal insufficiency COMPARISON STUDY: FINDINGS: The right kidney was not visualized. The left kidney measures 10.9 cm in length. The left k idney is mildly echogenic and lobulated. Several renal cysts are suspected, the largest of which ford ures 7 mm. There is a 4 mm lower pole echogenic left renal focus. This could present a calculus or va scular reflector. The left ureteral jet was visualized. IMPRESSION : 1. Nonvisualization of the right kidney 2. No evidence of left-sided hydronephrosis 3. Slight increase in left renal cortical echogenicity suggesting medical renal disease ACT 112: Negative or not required by law. Electronically signed by: Julio Cesar Lucas M.D. 03/09/2021 9:34 AM
[2021-03-09] MEDS: IRON SUCROSE 300 MG in SODIUM CHLORIDE 0.9% 250 ML IV SCH (10:37)
[2021-03-09] MEDS: VITAMIN B COMPLEX TAB PO SCH (21:11)
[2021-03-09] MEDS: ISOSORBIDE MONO EXTENDED REL 30 MG TABCR PO SCH (21:11)
[2021-03-09] MEDS: INSULIN GLARGINE SOLOSTAR 100 UNITS/ML 3 ML PEN SC SCH (21:12)
[2021-03-10] MEDS ORDERED: PROMETHAZINE HCL 12.5 MG in SODIUM CHLORIDE 0.9% 50 ML IV STA (00:33)
[2021-03-10] MEDS ORDERED: LORazepam 0.25 MG/0.5 ML VIAL IV STA ×2 (01:36→02:16)
[2021-03-10] MEDS ORDERED: HALOPERIDOL LACTATE 5 MG/ML 1 ML VIAL IM STA ×2 (03:25→05:13)
[2021-03-10 05:55] LABS: Basophils # (auto) 0.02 K/uL (0-0.2); Basophils % (auto) 0.2 %; Eosinophils # (auto) 0.41 K/uL (0-0.5); Eosinophils % (auto) 3.8 %; Hematocrit (blood only) 23.9 % (37-47); Hemoglobin 7.4 g/dL (12.0-16.0); Immature Granulocytes # (auto) 0.04 K/uL (0.00-0.02); Immature Granulocytes % (auto) 0.4 %; Lymphocytes # (auto) 0.89 K/uL (1.2-3.4); Lymphocytes % (auto) 8.2 %; Mean Corpuscular Hemoglobin 27.7 pg (25-34); Mean Corpuscular Volume 89.5 fL (80-100); Mean Platelet Volume 8.5 fL (7.4-10.4); Monocytes # (auto) 0.82 K/uL (0.11-0.59); Monocytes % (auto) 7.6 %; Neutrophils # (auto) 8.67 K/uL (1.4-6.5); Neutrophils % (auto) 79.8 %; Platelet Count 349 K/uL (130-400); RDW Coefficient of Variation 16.6 % (11.5-14.5); RDW Standard Deviation 53.6 fL (36.4-46.3); Red Blood Count 2.67 M/uL (4.2-5.4); Reticulocyte % 3.7 % (0.5-2.0); White Blood Count 10.85 K/uL (4.8-10.8)
[2021-03-10 06:14] LABS: Albumin Level 3.1 gm/dl (3.4-5.0); BUN Creatinine Ratio 14.3 (10-20); Calcium 9.8 mg/dl (8.5-10.1); Est GFR (Non-African American) 12.1; Potassium 3.5 mmol/L (3.5-5.1)
[2021-03-10 06:17] LABS: Albumin Globulin Ratio 0.9 (0.9-2); Bilirubin,Total 0.3 mg/dl (0.2-1); Globulin 3.6 gm/dl (2.5-4.0); Total Protein 6.7 gm/dl (6.4-8.2)
[2021-03-10 06:26] LABS: Anisocytosis Present; Polychromasia 1+
[2021-03-10] MEDS ORDERED: LABETALOL HCL IV 5 MG/ML 20ML IV PRN (07:36)
--- NOTE | 2021-03-10 07:44 | Hospitalist Progress Note ---
Date of Service March 10, 2021 Assessment & Plan (1) Acute renal failure: (2) Hypercalcemia: (3) Neuropathy of foot: (4) CAD (coronary artery disease): (5) DM (diabetes mellitus) type II controlled with renal manifestation: (6) HTN (hypertension): (7) HLD (hyperlipidemia): (8) CKD (chronic kidney disease) stage 3, GFR 30-59 ml/min: ASSESSMENT AND PLAN: This is a 71-year-old female who presents with acute kidney injury, hypercalcemia and anemia. 1. Acute kidney injury on chronic kidney disease stage IV: Baseline creatinine was 1.8 last year, it was 4.3 on admission and trending down. Check protein/creatinine ratio. Follow the urinalysis. Hold her home medication of losartan and Lasix. Avoid nephrotoxic agents. Started on fluids, normal saline 125 mL per hour. The patient also has a solitary kidney. Right kidney is hypertrophied. Renal ultrasound. Nephrology consulted and notified. Ozempic can cause SHANNAN from dehydration from nausea/vomiting. But patient didn't have any GI symptoms. Tele floor. 2. Hypercalcemia: Calcium is 12.5 and trending down. The patient is not on any calcium supplement at home. Vitamin D levels are low, PTH. We will follow chest x-ray, TSH. Starting on fluids, normal saline 125 mL per hour and follow the repeat labs in a.m. The patient does not have complaint of any pain. We will keep multiple myeloma in differentials. Her LFTs are okay. 3. Anemia: The patient has history of anemia of chronic kidney disease. The patient is on iron supplements. Her hemoglobin was 12.7 in November of 2019 and currently today is 7.7. The patient denies any obvious signs of bleeding. We will check fecal occult blood, Iron is low despite PO Fe, vitamin B12, and folate levels. IV iron. Hold PO Fe, Currently hemodynamically stable. 4. Diabetes: We will hold Ozempic. Continue her Tresiba. Placed on insulin sliding scale. Follow the blood sugars, follow HbA1c level. 5. Hypertension: Holding telmisartan for now. Continue amlodipine and isosorbide mononitrate. Holding Lasix. Will monitor blood pressure. Add Lab etalol 20 IV Q6H Prn, May have HTN encephalopathy +AMS and Psychosis overnight, Uncontrollable. Trop Elevated today, will Trend 6. History of hyperlipidemia: Continue Crestor. 7. History of gout: Continue allopurinol. 8. Prolonged QTc: Avoid QT prolonging drugs. 9. History of coronary artery disease: Currently asymptomatic. Continue her aspirin and statin. Her echo from May 2019 shows EF of 65% and moderately concentric LVH, LV wall thickness. 10. History of gastroesophageal reflux disease: Continue on Pepcid as needed. 11. History of chronic osteomyelitis, status post right toe amputation in July 2019. 12. History of right atrophic kidney. 13. History of peripheral neuropathy and poor ambulatory status.Pt/Ot prior to discharge 14. Deep venous thrombosis prophylaxis: Sequential compression devices for now. 15. Disposition: tele floor. Level 1 full code as per my discussion with the patient. PT and OT prior to discharge. Social service to help with discharge planning. Labs checked, w/u in progress, Control BP, w/u for AMS when able ROS-Sedated today Physical Exam Gen-NAD, Afebrile, obese Head-NCAT Neck-No JVD Lungs-Clear to Auscultation Bilaterally, No Rales, No Rhonchi, No Wheezing, No Crepitus Chest-No S4, +S1, +S2, No S3, No Murmurs, No Rubs, No Gallops, No Ectopy Abdomen-Soft, Bowel Sounds Present, Non Tender, Non Distended, No Hepatomegaly, No Splenomegaly, No Palpable Masses, No Rebound, No Rigidity, No Guarding Musculoskeletal-NA Extremities-No Cyanosis, No Clubbing, No Edema Nuero-Sedated Psych-Sedated Admission and Anticipated Discharge Date Admission Date: March 08, 2021 Results & Data Results & Data ([facility]) Vital Signs (Past 12 Hours) Vital Signs Temp Pulse Pulse Pulse Resp BP BP 03/10/21 03:34 36.8 C 113 H 24 194/83 H 03/10/21 02:37 36.7 C 107 H 24 210/102 H 03/10/21 02:27 87 03/10/21 00:27 166/68 H 03/09/21 23:37 36.7 C 85 19 181/78 H 03/09/21 22:38 Pulse Ox Pulse Ox 03/10/21 03:34 100 03/10/21 02:37 99 03/10/21 02:27 03/10/21 00:27 03/09/21 23:37 98 03/09/21 22:38 95 (1) Acute renal failure Acute renal failure type: unspecified Qualified Code(s): N17.9 - Acute kidney failure, unspecified
[2021-03-10] MEDS ORDERED: HALOPERIDOL LACTATE 5 MG/ML 1 ML VIAL IM PRN (07:45)
[2021-03-10] MEDS: INSULIN ASPART 100 UNITS/ML 3 ML PEN SC SCH ×4 (08:33→20:57)
[2021-03-10] MEDS: allopurinoL 100 MG TAB PO SCH (08:34)
[2021-03-10] MEDS: ROSUVASTATIN CALCIUM 20 MG TAB PO SCH (08:35)
[2021-03-10] MEDS: amLODIPine BESYLATE 5 MG TAB PO SCH (08:35)
[2021-03-10] MEDS: ASPIRIN 81 MG ECTAB PO SCH (08:35)
[2021-03-10] MEDS: IRON SUCROSE 300 MG in SODIUM CHLORIDE 0.9% 250 ML IV SCH (08:40)
--- NOTE | 2021-03-10 09:26 | Cardiology Consultation ---
Date of Consultation March 10, 2021 Assessment & Plan (1) Acute on chronic renal failure: The patient has a history of chronic renal failure which is worsened and created electrolyte abnormalities. (2) Chest pain: The chest pain is difficult to evaluate at this time. She has plenty of medical problems that need to be addressed. She is currently sedated and resting comfortably. (3) Anemia: Most likely from chronic renal disease. The anemia could be contributing to her chest pain with her history of coronary artery disease. (4) DM (diabetes mellitus) type II controlled with renal manifestation: Currently not well managed which may be due to the patient's lack of follow-up and noncompliance. (5) Troponin level elevated: I believe the troponin elevation is multifactorial including acute on chronic renal disease, profound anemia and electrolyte abnormalities. I would not at this time recommend any additional cardiac testing. She is certainly not a cath candidate at this time. Due to her profound anemia, I would be reluctant to start her on anticoagulation. History of Present Illness Attending Physician: Erasmo Molina DO History of Present Illness This is a 71-year-old female with multiple medical problems as outlined below. She was sent in by her primary care physician due to abnormal labs taken recently. She was found to be profoundly anemic with progressive renal failure. The patient is heavily sedated this morning. Apparently, she became agitated through the night and was given sedation. The information is taken from the medical record and nursing. Over the past several weeks she has had intermittent atypical chest discomfort. She has not had close follow-up with medical appointments. Past medical history: Chronic coronary artery disease Type 2 diabetes mellitus with hemoglobin A1c goal of less than 7.5% (HCC) Microalbuminuric diabetic nephropathy (HCC) DM type 2 causing CKD stage 4 (HCC) Type 2 diabetes mellitus with diabetic neuropathy, unspecified (HCC) Benign hypertension with CKD (chronic kidney disease) stage IV (HCC) Anemia of chronic renal failure, stage 4 (severe) (HCC) Type 2 diabetes mellitus with diabetic dermatitis, without long-term current use of insulin (HCC) Patent foramen ovale Allergies Allergy/AdvReac Type Severity Reaction Status Date / Time amoxicillin Allergy Severe ANAPHYLAXIS Verified 03/08/21 20:00 methimazole Allergy Severe Chest Pain Verified 03/08/21 20:00 vancomycin Allergy Severe TOAN Verified 03/08/21 20:00 SYNDROME lisinopril Allergy Mild Cough Verified 03/08/21 20:00 NSAIDS (Non-Steroidal AdvReac Unknown NOT TO Verified 03/08/21 20:00 Anti-Inflamma TAKE BECAUSE OF REYNAUDS verapamil AdvReac Unknown Unknown Verified 03/08/21 20:00 Home Medications Medication Instructions Recorded Confirmed Type Tresiba U-100 Insulin 10 unit SUBCUT HS 10/04/19 03/08/21 History acetaminophen [Tylenol Extra 1,000 mg PO Q6H PRN 10/04/19 03/08/21 History Strength] amlodipine 5 mg PO QAM 10/04/19 03/08/21 History aspirin [Aspir-81] 81 mg PO QAM 10/04/19 03/08/21 History ferrous sulfate 325 mg PO QAM 10/04/19 03/08/21 History furosemide 40 mg PO QAM 10/04/19 03/08/21 History insulin aspart U-100 [Novolog 0 unit SUBCUT TID 10/04/19 03/08/21 History U-100 Insulin aspart] isosorbide mononitrate 30 mg PO QPM 10/04/19 03/08/21 History magnesium 250 mg PO QAM 10/04/19 03/08/21 History nitroglycerin [Nitrostat] 4 mg SUBLINGUAL UD PRN 10/04/19 03/08/21 History telmisartan 40 mg PO QAM 10/04/19 03/08/21 History vitamin B complex-folic acid [B 1 tab PO QPM 10/04/19 03/08/21 History Complex 1 (with folic acid)] allopurinol 100 mg PO QAM 01/04/20 03/08/21 History B complex-vitamin C-folic acid 1 tab PO HS 03/08/21 03/08/21 History [Katty-Joya] Crestor 40 mg PO DAILY 03/08/21 03/08/21 History famotidine [Pepcid AC] 20 mg PO DAILY PRN 03/08/21 03/08/21 History semaglutide [Ozempic] 0.5 mg SUBCUT WK 03/08/21 03/08/21 History Patient History Medical History Atrophy of right kidney 2009 [facility]G u/s w/ R kidney 5.5 x 4 cm Chronic kidney disease STAGE 4-F/U DR GARZA Diabetes mellitus, type 2 GERD (gastroesophageal reflux disease) Gout Hyperlipidemia Hypertension Neuropathy HANDS AND FEET Renal cyst, acquired, left Surgical History H/O foot surgery RIGHT H/O foot surgery RIGHT GREAT TOE AMPUTATION History of bilateral cataract extraction History of bilateral tubal ligation History of colonoscopy History of tonsillectomy Family History Father Family history of diabetes mellitus Sister Family history of diabetes mellitus Brother Family history of diabetes mellitus Other No family history of adverse response to anesthesia Social History Smoking Status: Former smoker Second Hand Exposure: Yes (father/ smoked); Hx Alcohol Use: Yes Alcohol type: wine Hx Substance Use: No Preferred Language: Bengali Communication Ability: Effective Sander Machine Required: No Beliefs That Will Affect Care: None marital status: Current Living Situation: Spouse Current Living Situation Comment: Lives at home with Feels Safe at Home: Yes Safety Concerns: Feels Safe At This Time Assistive Devices: Cane and Glasses Assistive Devices Comment: Intermittent use of cane r/t neuropathy Review of Systems Review of Systems: Unobtainable due to cognitive status Physical Exam Physical Exam: General: no acute distress and stated age Head: normocephalic, no masses, lesions, tenderness or abnormalities Eyes: conjunctiva are pink and non-injected, sclera clear Neck: supple, no adenopathy, no bruits, normal jugular venous pulse, no hepatojugular reflux Chest: normal shape and normal respiratory effort Lungs: clear to auscultation and percussion Cardiac Exam: - regular rate & rhythm, no murmurs gallops or rubs - normal S1, normal S2 Pulses: 2(+) throughout Abdomen: abdomen soft, non-tender, no abnormal masses and no hepatosplenomegaly Musculoskeletal: no gait disturbance, no joint inflammation, no deforming arthritis Extremities: no edema and no cyanosis Neuro: grossly normal exam Results & Data ([facility]) Vital Signs (Past 12 Hours) Vital Signs Temp Pulse Pulse Pulse Pulse Resp BP 03/10/21 07:41 36.6 C 105 H 20 172/87 H 03/10/21 03:34 36.8 C 113 H 24 194/83 H 03/10/21 02:37 36.7 C 107 H 24 03/10/21 02:27 87 03/10/21 00:27 03/09/21 23:37 36.7 C 85 19 181/78 H 03/09/21 22:38 BP Pulse Ox Pulse Ox 03/10/21 07:41 100 03/10/21 03:34 100 03/10/21 02:37 210/102 H 99 03/10/21 02:27 03/10/21 00:27 166/68 H 03/09/21 23:37 98 03/09/21 22:38 95 Laboratory Results Laboratory Results - last 24 hr 03/09/21 03/09/21 03/09/21 11:15 16:27 20:26 WBC RBC Hgb Hct MCV MCH MCHC RDW Std Deviation RDW Coeff of Fanta Plt Count MPV Immature Gran % (Auto) Neut % (Auto) Lymph % (Auto) [place] % (Auto) Eos % (Auto) Baso % (Auto) Reticulocyte % (Auto) Neut # (Auto) Lymph # (Auto) [place] # (Auto) Eos # (Auto) Baso # (Auto) Reticulocyte # Immature Gran # (Auto) Polychromasia Anisocytosis Sodium Potassium Chloride Carbon Dioxide Anion Gap BUN Creatinine Est Cr Clr Drug Dosing Est GFR ( Amer) Est GFR (Non-Af Amer) BUN/Creatinine Ratio Glucose POC Glucose 202 H 147 H 148 H Calcium Ionized Calcium Total Bilirubin AST ALT Alkaline Phosphatase Troponin I Total Protein Total Protein (PEP) Albumin Albumin (PEP) Globulin Albumin/Globulin Ratio Rvwxx-6-Elqjubgpk Tnrls-4-Rismbpmim Lsgg-2-Xawcffse Hpez-6-Gjovdghu Opss-4-Svfqssblcezcp Gamma Globulins Monoclonal Peak 3 Ser Monoclonl Protein Ser Monoclonal Prot 2 PEP Interpretation U Random Total Protein Ur Creatinine mg/dL Protein/Creatinin Ratio Urine Albumin (%) U Idsax-9-Eyhdcnte (%) U Ovoaf-1-Htqbmiuv (%) U Beta Globulin (%) U Hmqj-2-Kxyssgrzpkobn U Gamma Globulin (%) U Abnormal Prot Band 1 U Abnormal Prot Band 2 U Abnormal Prot Band 3 Urine PEP Interpret Serum Immunofixation Free Tyro LC, Quant Free Lambda LC, Quant Free Tyro/Lambda Ratio 03/09/21 03/09/21 03/10/21 20:41 20:41 02:36 WBC RBC Hgb Hct MCV MCH MCHC RDW Std Deviation RDW Coeff of Fanta Plt Count MPV Immature Gran % (Auto) Neut % (Auto) Lymph % (Auto) [place] % (Auto) Eos % (Auto) Baso % (Auto) Reticulocyte % (Auto) Neut # (Auto) Lymph # (Auto) [place] # (Auto) Eos # (Auto) Baso # (Auto) Reticulocyte # Immature Gran # (Auto) Polychromasia Anisocytosis Sodium Potassium Chloride Carbon Dioxide Anion Gap BUN Creatinine Est Cr Clr Drug Dosing Est GFR ( Amer) Est GFR (Non-Af Amer) BUN/Creatinine Ratio Glucose POC Glucose 138 H Calcium Ionized Calcium Total Bilirubin AST ALT Alkaline Phosphatase Troponin I Total Protein Total Protein (PEP) Albumin Albumin (PEP) Globulin Albumin/Globulin Ratio Urnxk-0-Mkflirqdy Xvxkc-0-Riexhndwx Abho-6-Rrwkdqsc Oqtr-7-Ezpgqynh Kmnj-3-Toanwajqvhlkg Gamma Globulins Monoclonal Peak 3 Ser Monoclonl Protein Ser Monoclonal Prot 2 PEP Interpretation U Random Total Protein Pending Ur Creatinine mg/dL Pending Protein/Creatinin Ratio Pending Urine Albumin (%) Pending U Njopx-5-Xhinhocn (%) Pending U Rtpiv-0-Rgteofaw (%) Pending U Beta Globulin (%) Pending U Ckwm-8-Jdadsvgqdlfvi Pending U Gamma Globulin (%) Pending U Abnormal Prot Band 1 Pending U Abnormal Prot Band 2 Pending U Abnormal Prot Band 3 Pending Urine PEP Interpret Pending Serum Immunofixation Free Tyro LC, Quant Free Lambda LC, Quant Free Tyro/Lambda Ratio 03/10/21 03/10/21 03/10/21 05:29 05:29 05:29 WBC 10.85 H RBC 2.67 L Hgb 7.4 L Hct 23.9 L MCV 89.5 MCH 27.7 MCHC 31.0 L RDW Std Deviation 53.6 H RDW Coeff of Fanta 16.6 H Plt Count 349 MPV 8.5 Immature Gran % (Auto) 0.4 Neut % (Auto) 79.8 Lymph % (Auto) 8.2 [place] % (Auto) 7.6 Eos % (Auto) 3.8 Baso % (Auto) 0.2 Reticulocyte % (Auto) 3.7 H Neut # (Auto) 8.67 H Lymph # (Auto) 0.89 L [place] # (Auto) 0.82 H Eos # (Auto) 0.41 Baso # (Auto) 0.02 Reticulocyte # 0.10 Immature Gran # (Auto) 0.04 H Polychromasia 1+ Anisocytosis Present Sodium 141 Potassium 3.5 Chloride 111 H Carbon Dioxide 21 Anion Gap 9.0 BUN 51 H Creatinine 3.54 H Est Cr Clr Drug Dosing 15.0 Est GFR ( Amer) 14.0 Est GFR (Non-Af Amer) 12.1 BUN/Creatinine Ratio 14.3 Glucose 164 H POC Glucose Calcium 9.8 Ionized Calcium Total Bilirubin 0.3 AST 18 ALT 18 Alkaline Phosphatase 97 Troponin I Total Protein 6.7 Total Protein (PEP) Pending Albumin 3.1 L Albumin (PEP) Pending Globulin 3.6 Albumin/Globulin Ratio 0.9 Lnnbs-3-Vzodnaogq Pending Zirgt-9-Oigwlahdt Pending Ilyb-6-Lxvbgwlp Pending Wjec-5-Ktxagitg Pending Xclc-9-Dactqnhumtvhd Pending Gamma Globulins Pending Monoclonal Peak 3 Pending Ser Monoclonl Protein Pending Ser Monoclonal Prot 2 Pending PEP Interpretation Pending U Random Total Protein Ur Creatinine mg/dL Protein/Creatinin Ratio Urine Albumin (%) U Ikxry-6-Bmozefuj (%) U Saqrj-6-Nipwjudu (%) U Beta Globulin (%) U Ceys-6-Ojszeylobsdgi U Gamma Globulin (%) U Abnormal Prot Band 1 U Abnormal Prot Band 2 U Abnormal Prot Band 3 Urine PEP Interpret Serum Immunofixation Pending Free Tyro LC, Quant Pending Free Lambda LC, Quant Pending Free Tyro/Lambda Ratio Pending 03/10/21 03/10/21 03/10/21 05:29 07:08 08:03 WBC RBC Hgb Hct MCV MCH MCHC RDW Std Deviation RDW Coeff of Fanta Plt Count MPV Immature Gran % (Auto) Neut % (Auto) Lymph % (Auto) [place] % (Auto) Eos % (Auto) Baso % (Auto) Reticulocyte % (Auto) Neut # (Auto) Lymph # (Auto) [place] # (Auto) Eos # (Auto) Baso # (Auto) Reticulocyte # Immature Gran # (Auto) Polychromasia Anisocytosis Sodium Potassium Chloride Carbon Dioxide Anion Gap BUN Creatinine Est Cr Clr Drug Dosing Est GFR ( Amer) Est GFR (Non-Af Amer) BUN/Creatinine Ratio Glucose POC Glucose 183 H Calcium Ionized Calcium 1.25 Total Bilirubin AST ALT Alkaline Phosphatase Troponin I 0.229 H* Total Protein Total Protein (PEP) Albumin Albumin (PEP) Globulin Albumin/Globulin Ratio Zxexg-7-Mkfnucpps Cdiwe-6-Gvxeksbrn Xvnx-7-Tllasghv Enog-1-Shjlptvq Uiaz-5-Orhzuahcawquj Gamma Globulins Monoclonal Peak 3 Ser Monoclonl Protein Ser Monoclonal Prot 2 PEP Interpretation U Random Total Protein Ur Creatinine mg/dL Protein/Creatinin Ratio Urine Albumin (%) U Jeews-5-Vjqdeqix (%) U Cpblv-6-Bgdckpoe (%) U Beta Globulin (%) U Kpag-0-Rrhyvmfsdzfol U Gamma Globulin (%) U Abnormal Prot Band 1 U Abnormal Prot Band 2 U Abnormal Prot Band 3 Urine PEP Interpret Serum Immunofixation Free Tyro LC, Quant Free Lambda LC, Quant Free Tyro/Lambda Ratio 03/10/21 08:03 WBC RBC Hgb Hct MCV MCH MCHC RDW Std Deviation RDW Coeff of Fanta Plt Count MPV Immature Gran % (Auto) Neut % (Auto) Lymph % (Auto) [place] % (Auto) Eos % (Auto) Baso % (Auto) Reticulocyte % (Auto) Neut # (Auto) Lymph # (Auto) [place] # (Auto) Eos # (Auto) Baso # (Auto) Reticulocyte # Immature Gran # (Auto) Polychromasia Anisocytosis Sodium Potassium Chloride Carbon Dioxide Anion Gap BUN Creatinine Est Cr Clr Drug Dosing Est GFR ( Amer) Est GFR (Non-Af Amer) BUN/Creatinine Ratio Glucose POC Glucose Calcium Ionized Calcium Total Bilirubin AST ALT Alkaline Phosphatase Troponin I 2.370 H* Total Protein Total Protein (PEP) Albumin Albumin (PEP) Globulin Albumin/Globulin Ratio Obpiu-6-Nzcfwmijh Iivue-0-Fhzhacqiz Ljou-2-Gvtszdhv Rsiz-9-Issmgctr Qyht-0-Xqjbwxtxggubc Gamma Globulins Monoclonal Peak 3 Ser Monoclonl Protein Ser Monoclonal Prot 2 PEP Interpretation U Random Total Protein Ur Creatinine mg/dL Protein/Creatinin Ratio Urine Albumin (%) U Tjvov-1-Kpotlejh (%) U Jsuwm-6-Bjmpvvrw (%) U Beta Globulin (%) U Qukd-9-Cuvumkmiahdwf U Gamma Globulin (%) U Abnormal Prot Band 1 U Abnormal Prot Band 2 U Abnormal Prot Band 3 Urine PEP Interpret Serum Immunofixation Free Tyro LC, Quant Free Lambda LC, Quant Free Tyro/Lambda Ratio Medications Administered Current Inpatient Medications Acetaminophen (Acetaminophen 325 Mg Tab) 650 mg PO Q4H PRN PRN Reason: Pain or Fever Stop: 04/07/21 22:37 Last Admin: 03/09/21 21:16 Dose: 650 mg Documented by: Allopurinol (Allopurinol 100 Mg Tab) 100 mg PO QAM [facility] Stop: 04/08/21 08:59 Last Admin: 03/10/21 08:34 Dose: 100 mg Documented by: Amlodipine Besylate (Amlodipine Besylate 5 Mg Tab) [facility] [place] Stop: 04/08/21 08:59 Last Admin: 03/10/21 08:35 Dose: 5 mg Documented by: Aspirin (Aspirin 81 Mg Ectab) 81 mg PO QAM [facility] Stop: 04/08/21 08:59 Last Admin: 03/10/21 08:35 Dose: 81 mg Documented by: Dextrose (Dextrose 50% 50 Ml Syringe) 25 - 50 ml IV UD PRN; Protocol PRN Reason: Hypoglycemia Protocol Stop: 04/07/21 23:14 Famotidine (Famotidine 20 Mg Tab) 20 mg PO DAILY PRN PRN Reason: Acid Reflux Stop: 04/07/21 22:37 Last Admin: 03/09/21 19:43 Dose: 20 mg Documented by: Glucagon (Glucagon For Inj 1 Mg Vial) 1 mg SQ UD PRN; Protocol PRN Reason: Hypoglycemia Protocol Stop: 04/07/21 23:14 Glucose (Glucose 40% Gel 15 Gm Tube) 15 - 30 gm PO UD PRN; Protocol PRN Reason: Hypoglycemia Protocol Stop: 04/07/21 23:14 Glucose (Glucose 10 Tabs/Tube) 4 - 8 tabs PO UD PRN; Protocol PRN Reason: Hypoglycemia Protocol Stop: 04/07/21 23:14 Haloperidol Lactate (Haloperidol Lactate 5 Mg/Ml 1 Ml Vial) 2 mg IM Q8H PRN PRN Reason: Agitation Stop: 04/09/21 07:44 Insulin Aspart (Insulin Aspart 100 Units/Ml 3 Ml Pen) 0 units SC [facility] Stop: 04/07/21 22:37 Last Admin: 03/10/21 08:33 Dose: 4 units Documented by: Insulin Glargine (Insulin Glargine Solostar 100 Units/Ml 3 Ml Pen) 10 units SC [facility] Stop: 04/07/21 22:59 Last Admin: 03/09/21 21:12 Dose: 10 units Documented by: Isosorbide Mononitrate (Isosorbide [place] Extended Rel 30 Mg Tabcr) 30 mg PO QPM [facility] Stop: 04/07/21 22:37 Last Admin: 03/09/21 21:11 Dose: 30 mg Documented by: Labetalol HCl (Labetalol Hcl Iv 5 Mg/Ml 20ml) 20 mg IV Q6H PRN PRN Reason: Blood Pressure - High Stop: 04/09/21 07:35 Miscellaneous (Carbohydrates For Hypoglycemia ) 15 - 30 gm PO UD PRN PRN Reason: Hypoglycemia Treatment Stop: 04/07/21 23:14 Nitroglycerin (Nitroglycerin Sl 0.4 Mg/Tab Tab) 0.4 mg SL UD PRN PRN Reason: Chest Pain Stop: 04/07/21 22:37 Polyethylene Glycol (Polyethylene (Miralax) 17 Gm Pack) 17 gm PO DAILY PRN PRN Reason: Constipation Stop: 04/07/21 22:37 Rosuvastatin Calcium (Rosuvastatin Calcium 20 Mg Tab) 40 mg PO DAILY [facility] Stop: 04/08/21 08:59 Last Admin: 03/10/21 08:35 Dose: 40 mg Documented by: Vitamin B Complex (Vitamin B Complex Tab) 1 tab PO QPM [facility] Stop: 04/07/21 22:59 Last Admin: 03/09/21 21:11 Dose: 1 tab Documented by: (1) Anemia Anemia type: unspecified type Qualified Code(s): D64.9 - Anemia, unspecified (2) Acute on chronic renal failure Acute renal failure type: unspecified Chronic kidney disease stage: stage 4 (severe) Qualified Code(s): N17.9 - Acute kidney failure, unspecified; N18.4 - Chronic kidney disease, stage 4 (severe)
[2021-03-10] MEDS: SODIUM CHLORIDE 0.9% 1000ML 1,000 ML IV SCH (10:48)
[2021-03-10] MEDS: ACETAMINOPHEN 325 MG TAB PO PRN ×2 (13:06→17:22)
[2021-03-10] MEDS ORDERED: SODIUM CHLORIDE 0.9% 250 ML IV PRN (15:03)
--- NOTE | 2021-03-10 15:07 | Communication Note ---
Date of Service: March 10, 2021 The patient's subsequent troponin has risen to 20. With her chest pain, her anemia may be causing her angina. I would transfuse her 1 unit slowly as to not put her into heart failure. She is Hemoccult positive and I am concerned regarding anticoagulation at this time.
[2021-03-10] MEDS ORDERED: FUROSEMIDE 40 MG in SYRINGE 0 ML IV ONE (15:11)
[2021-03-10] MEDS ORDERED: POTASSIUM CHLORIDE CRTAB 20 MEQ TABCR PO STA (15:14)
--- NOTE | 2021-03-10 17:00 | Nephrology Progress Note ---
Date of Service March 10, 2021 Assessment & Plan (1) Hypertensive emergency without congestive heart failure: elevated blood pressures in setting of transient confusion, of elevated troponin > -target sbp is 130-150s for now -stopped her NS -cont prn labetalol provided cardiology oks -transfuse -f/u cardiology recs >> not a cath candidate, no anticoagulation Present on Admission?: Yes (2) Acute on chronic renal failure: slow/some improvement in setting of essentially solitary kidney w/ baseline CKD 4 e GFR about 20 ml/min at baseline and historically 1/2 gm daily proteinuria > OP labs w/ creatinine 4.3 on March 08 and on presentation now 1.8 gm proteinuria in setting of new onset hypercalcemia and markedly worsened chronic anemia. ?relation to ozempic dose -- we have not had OP labs as indicated/desired; she did however have 1 set of labs after starting this medication a year back in April 2020 with creatinine 1.8 at the time. no urgent need for dialysis but cannot rule out need this admission; she is interested in peritoneal dialysis if the need arises. response to IVF is promising though preliminary; differential >> SHANNAN on CKD ? related to increased semaglutide; concern also for multiple myeloma w/ renal involvement; or likeliest simply progression of advanced CKD in setting of DM, solitary kidney (though other lab parameters unexplained in this scenario) -diet appropriate -eval for myeloma as below -stopped NS but could resume if hypotensive relatively at lower rate -daily bmp (3) Hypercalcemia: resolved w/ NS-iCa today wnl; await GLO labs; daily bmp; cont to avoid D supplements and Ca rich meds; w/ anemia and worse renal failure and this finding worry about myeloma; pt w/ 500 mg hx of proteinuria historically and 2 gm on presentation. no further indication for NS. PTH low nl at 23. -f/u pending kappa lambda light chains, serum YOLANDA, beta-2 microglobulin serum and urine, protein electrophoresis serum and urine, PTH RP -daily bmp (4) Anemia: Unremarkable colonoscopy apart from adenomatous polyp for 5-year follow-up in January 2020. severe iron deficinecy (7% t stn on OP labs). ?cause. FOBT +; reticulocyte count wnl/as expected. Hemoglobin generally in the 11's presenting hemoglobin low sevens on presentation. PS unrevealing -agree w/ IV iron -- has had 2 doses -transfuse prn -- including today; would give lasix 40 IV after transfusion (5) Abnormal renal ultrasound: Her right kidney has further atrophied and even disappeared in the decade since it was last imaged. Multiple renal cysts on the left with possible kidney stone. She has very little normal renal tissue and minimal renal reserves Admission and Anticipated Discharge Date Admission Date: March 08, 2021 Subjective became agitated overnight > confusion, combative, "felt like my fingers were exploding" > needed haldol; also started on 1:1. Also w/ ongoing HTN yesterday w/ peak sbp 210 but generally 160-170s systolic. started on labetalol; troponin uptrending (and this PM up to 20); cardiology following. pt MS normalized by this am; denies palpitations, chest pain (when I saw her), voiding concerns; did have a bm >> stool heme +; does endorse feeling a bit dizzy and dyspneic w/ getting up to bathroom Review of Systems Review of Systems: All systems reviewed & are unremarkable except as noted in Subjective Physical Exam Constitutional: well developed, well nourished, + obese and cooperative; no acute distress Eyes: EOM intact bilaterally ENMT: Ears: no external ear abnormality Nose: no external nose abnormality Mouth: + dry oral mucous membranes Neck: no nuchal rigidity Respiratory: normal respiratory effort; no respiratory distress and no cough Auscultation: lungs clear to auscultation bilaterally and + diminished lung sounds Cardiovascular: Rate/Rhythm: regular rate and regular rhythm Heart Sounds: + murmur Extremities: no edema Gastrointestinal (Abdomen): Inspection/Auscultation: abdomen normal to inspection and normal bowel sounds; abdomen not distended Percus fan/Palpation: abdomen soft; abdomen nontender Musculoskeletal: Extremities: strength 5/5 throughout Skin: + rash (unchanged) Psychiatric: A+Ox3, euthymic affect Speech: normal rate/rhythm/volume of speech Insight: good insight Judgement: good judgement Results & Data ([facility]) Vital Signs (Past 12 Hours) Vital Signs Temp Pulse Pulse Pulse Resp BP BP 03/10/21 16:37 36.6 C 69 18 118/64 03/10/21 15:57 36.5 C 106 H 20 03/10/21 11:24 36.2 C L 65 18 03/10/21 07:41 36.6 C 105 H 20 172/87 H BP Pulse Ox 03/10/21 16:37 97 03/10/21 15:57 143/65 H 100 03/10/21 11:24 112/64 95 03/10/21 07:41 100 Laboratory Results 03/10/21 05:29 03/10/21 05:29 (1) Anemia Anemia type: unspecified type Qualified Code(s): D64.9 - Anemia, unspecified (2) Acute on chronic renal failure Acute renal failure type: unspecified Chronic kidney disease stage: stage 4 (severe) Qualified Code(s): N17.9 - Acute kidney failure, unspecified; N18.4 - Chronic kidney disease, stage 4 (severe)
[2021-03-10] MEDS: VITAMIN B COMPLEX TAB PO SCH (20:26)
[2021-03-10] MEDS: ISOSORBIDE MONO EXTENDED REL 30 MG TABCR PO SCH (20:26)
--- NOTE | 2021-03-10 20:42 | Electrocardiogram Report ---
Test Reason : Blood Pressure : / mmHG Vent. Rate : 083 BPM Atrial Rate : 083 BPM P-R Int : 230 ms QRS Dur : 144 ms QT Int : 434 ms P-R-T Axes : 031 -65 017 degrees QTc Int : 509 ms Sinus rhythm with 1st degree A-V block Right bundle branch block Left anterior fascicular block Bifascicular block Voltage criteria for left ventricular hypertrophy Abnormal ECG When compared with ECG of 12-SEP-2013 10:34, [place] interval has increased Left anterior fascicular block is now Present Confirmed by Doug Madrid ([id number]) on 03/10/2021 8:41:55 PM Referred By: Ale Izaguirre Confirmed By:Doug Madrid
[2021-03-10] MEDS: INSULIN GLARGINE SOLOSTAR 100 UNITS/ML 3 ML PEN SC SCH (20:57)
--- NOTE | 2021-03-10 22:43 | Electrocardiogram Report ---
Test Reason : Blood Pressure : / mmHG Vent. Rate : 094 BPM Atrial Rate : 094 BPM P-R Int : 168 ms QRS Dur : 126 ms QT Int : 404 ms P-R-T Axes : 000 -59 012 degrees QTc Int : 505 ms Sinus rhythm with marked sinus arrhythmia Right bundle branch block Left anterior fascicular block Bifascicular block Minimal voltage criteria for LVH, may be normal variant Possible Lateral infarct , age undetermined Abnormal ECG When compared with ECG of 08-MAR-2021 18:41, (unconfirmed) MA interval has decreased Borderline criteria for Lateral infarct are now Present Confirmed by Doug Madrid ([id number]) on 03/10/2021 10:42:52 PM Referred By: Ale Izaguirre Confirmed By:Doug Madrid
--- NOTE | 2021-03-10 23:10 | Electrocardiogram Report ---
Test Reason : Blood Pressure : / mmHG Vent. Rate : 074 BPM Atrial Rate : 061 BPM P-R Int : 000 ms QRS Dur : 124 ms QT Int : 432 ms P-R-T Axes : 000 -55 -31 degrees QTc Int : 479 ms Atrial fibrillation with a competing junctional pacemaker Right bundle branch block Left anterior fascicular block Bifascicular block Septal infarct , age undetermined Abnormal ECG When compared with ECG of 10-MAR-2021 08:23, (unconfirmed) Atrial fibrillation has replaced Sinus rhythm Septal infarct is now Present T wave inversion more evident in Inferior leads Nonspecific T wave abnormality now evident in Lateral leads Confirmed by Doug Madrid ([id number]) on 03/10/2021 11:10:10 PM Referred By: Ale Izaguirre Confirmed By:Doug Madrid
[2021-03-11 05:58] LABS: Basophils # (auto) 0.02 K/uL (0-0.2); Basophils % (auto) 0.2 %; Eosinophils # (auto) 0.58 K/uL (0-0.5); Eosinophils % (auto) 4.8 %; Hematocrit (blood only) 23.9 % (37-47); Hemoglobin 7.6 g/dL (12.0-16.0); Immature Granulocytes # (auto) 0.05 K/uL (0.00-0.02); Immature Granulocytes % (auto) 0.4 %; Lymphocytes # (auto) 1.49 K/uL (1.2-3.4); Lymphocytes % (auto) 12.2 %; Mean Corpuscular Hemoglobin 28.1 pg (25-34); Mean Corpuscular Hgb Conc 31.8 g/dL (32-36); Mean Corpuscular Volume 88.5 fL (80-100); Mean Platelet Volume 8.8 fL (7.4-10.4); Monocytes # (auto) 1.21 K/uL (0.11-0.59); Monocytes % (auto) 9.9 %; Neutrophils # (auto) 8.83 K/uL (1.4-6.5); Neutrophils % (auto) 72.5 %; Platelet Count 314 K/uL (130-400); RDW Coefficient of Variation 16.8 % (11.5-14.5); RDW Standard Deviation 53.8 fL (36.4-46.3); White Blood Count 12.18 K/uL (4.8-10.8)
[2021-03-11 06:38] LABS: Albumin Globulin Ratio 0.8 (0.9-2); Albumin Level 2.7 gm/dl (3.4-5.0); BUN Creatinine Ratio 12.9 (10-20); Bilirubin,Total 0.3 mg/dl (0.2-1); Calcium 9.4 mg/dl (8.5-10.1); Creatinine Clr Calc Pharmacy 13.1 ml/min; Est GFR (African American) 11.8; Est GFR (Non-African American) 10.2; Globulin 3.3 gm/dl (2.5-4.0); Potassium 4.7 mmol/L (3.5-5.1)
[2021-03-11 06:46] LABS: RBC Morphology Unremarkable
--- NOTE | 2021-03-11 08:09 | Hospitalist Progress Note ---
Date of Service March 11, 2021 Assessment & Plan (1) Acute renal failure: (2) Hypercalcemia: (3) Neuropathy of foot: (4) CAD (coronary artery disease): (5) DM (diabetes mellitus) type II controlled with renal manifestation: (6) HTN (hypertension): (7) HLD (hyperlipidemia): (8) CKD (chronic kidney disease) stage 3, GFR 30-59 ml/min: ASSESSMENT AND PLAN: This is a 71-year-old female who presents with acute kidney injury, hypercalcemia and anemia. 1. Acute kidney injury on chronic kidney disease stage IV: Baseline creatinine was 1.8 last year, it was 4.3 on admission and trending down. 2. Hypercalcemia: Resolved We will keep multiple myeloma in differential. Her LFTs are okay. 3. Anemia: The patient has history of anemia of chronic kidney disease. The patient is on iron supplements. Her hemoglobin was 12.7 in November of 2019 + fecal occult blood, Iron is low despite PO Fe, vitamin B12, and folate levels. IV iron given. Hold PO Fe, Currently hemodynamically stable. Received 1 unit of PRBCs yesterday 4. Diabetes: Placed on insulin sliding scale. Follow the blood sugars, follow HbA1c level. 5. Hypertension: Holding telmisartan for now. Continue amlodipine and isosorbide mononitrate. Holding Lasix. Will monitor blood pressure. Labetalol 20 IV Q6H Prn, May have had HTN encephalopathy +AMS and Psychosis resolved, Trop Elevated Cards on case 6. History of hyperlipidemia: Continue Crestor. 7. History of gout: Continue allopurinol. 8. Prolonged QTc: Avoid QT prolonging drugs. 9. History of coronary artery disease: Currently asymptomatic. Continue her aspirin and statin. Her echo from May 2019 shows EF of 65% and moderately concentric LVH, LV wall thickness. 10. History of gastroesophageal reflux disease: Continue on Pepcid as needed. 11. History of chronic osteomyelitis, status post right toe amputation in July 2019. 12. History of right atrophic kidney. 13. History of peripheral neuropathy and poor ambulatory status.Pt/Ot prior to discharge 14. Deep venous thrombosis prophylaxis: Sequential compression devices for now. 15. Disposition: tele floor. Level 1 full code as per my discussion with the patient. PT and OT prior to discharge. Social service to help with discharge planning. Labs checked, w/u still pending, Cr up today ROS-No Headache, No Visual Changes, No Nausea, No Vomiting, No Fever, No Chills, No Neck Pain or Stiffness, No Chest Pain, No Palpitations, No SOB, No SUAREZ, No Cough, No Sputum, No Wheezing, No Abdominal Pain, No Diarrhea, No Hematemesis, No Hemoptysis, No Unexpected Weight Loss, No Flank pain, No Melena, No Hematochezia, No Frequency, No Urgency, No Burning, No Hematuria, No Rashes, No Diaphoresis. Appetite is Normal Physical Exam Gen-AAO x 3, NAD, Afebrile Head-NCAT, EOMI, PERRLA, Anicteric Sclera, No Posterior Pharyngeal Erythema Neck-Supple, No JVD, No Thyromegaly, No Masses, No LAD, No Bruits Lungs-Clear to Auscultation Bilaterally, No Rales, No Rhonchi, No Wheezing, No Crepitus Chest-No S4, +S1, +S2, No S3, No Murmurs, No Rubs, No Gallops, No Ectopy Abdomen-Soft, Bowel Sounds Present, Non Tender, Non Distended, No Hepatomegaly, No Splenomegaly, No Palpable Masses, No Rebound, No Rigidity, No Guarding Musculoskeletal-Full Range of Motion Bilaterally, No CVAT Extremities-No Cyanosis, No Clubbing, No Edema Nuero-Cranial Nerves II-XII grossly intact, Motor WNL, DTRs WNL, Strength WNL, Non Focal Psych-Normal Mood Admission and Anticipated Discharge Date Admission Date: March 08, 2021 Results & Data Results & Data ([facility]) Vital Signs (Past 12 Hours) Vital Signs Temp Pulse Resp BP Pulse Ox 03/11/21 07:08 37.4 C 72 19 150/65 H 96 03/11/21 03:22 37.2 C 84 20 108/57 L 95 03/10/21 23:28 36.7 C 67 18 133/64 98 (1) Acute renal failure Acute renal failure type: unspecified Qualified Code(s): N17.9 - Acute kidney failure, unspecified
[2021-03-11] MEDS: INSULIN ASPART 100 UNITS/ML 3 ML PEN SC SCH ×4 (08:11→20:45)
[2021-03-11] MEDS: ROSUVASTATIN CALCIUM 20 MG TAB PO SCH (08:29)
[2021-03-11] MEDS: ASPIRIN 81 MG ECTAB PO SCH (08:30)
[2021-03-11] MEDS: allopurinoL 100 MG TAB PO SCH (08:30)
[2021-03-11] MEDS: amLODIPine BESYLATE 5 MG TAB PO SCH (08:30)
[2021-03-11] MEDS: ACETAMINOPHEN 325 MG TAB PO PRN ×2 (08:59→22:33)
--- NOTE | 2021-03-11 09:19 | Nephrology Progress Note ---
Date of Service March 11, 2021 Assessment & Plan (1) Hypertensive emergency without congestive heart failure: resolved; elevated blood pressures admission through 03/10 in setting of transient confusion, of elevated troponin > -target sbp remains 130-150s for now unless cardiology has other target -no IVF indicated currently -cont prn labetalol provided cardiology oks -transfusion to keep hgb 8 or better recommended -f/u cardiology recs >> not a cath candidate, no anticoagulation (2) Acute on chronic renal failure: slow/some improvement in setting of essentially solitary kidney w/ baseline CKD 4 e GFR about 20 ml/min at baseline and historically 1/2 gm daily proteinuria > OP labs w/ creatinine 4.3 on March 08 and on presentation now 1.8 gm proteinuria in setting of new onset hypercalcemia and markedly worsened chronic anemia. ?relation to ozempic dose -- we have not had OP labs as indicated/desired; she did however have 1 set of labs after starting this medication a year back in April 2020 with creatinine 1.8 at the time. no urgent need for dialysis but cannot rule out need this admission; she is interested in peritoneal dialysis if the need arises. response to IVF is promising though preliminary; differential >> SHANNAN on CKD ? related to increased semaglutide; concern also for multiple myeloma w/ renal involvement; or likeliest simply progression of advanced CKD in setting of DM, solitary kidney (though other lab parameters unexplained in this scenario) -changed to renal diet -eval for myeloma as below in process -daily bmp >>no acute indication for dialysis; if she needs dialysis this admission will ideally work for urgent start PD; hoping though that if BP and cardiac status stabilize may not need dialysis quite yet Care coordinated with Dr Molina (3) Hypercalcemia: resolved w/ NS-iCa today wnl; await GLO labs; daily bmp; cont to avoid D supplements and Ca rich meds; w/ anemia and worse renal failure and this finding worry about myeloma; pt w/ 500 mg hx of proteinuria historically and 2 gm on presentation. no further indication for NS. PTH low nl at 23. -f/u pending kappa lambda light chains, serum YOLANDA, beta-2 microglobulin serum and urine, protein electrophoresis serum and urine, PTH RP -daily bmp (4) Anemia: Unremarkable colonoscopy apart from adenomatous polyp for 5-year follow-up in January 2020. severe iron deficinecy (7% t stn on OP labs). ?cause. FOBT +; reticulocyte count wnl/as expected. Hemoglobin generally in the 11's presenting hemoglobin low sevens on presentation. PS unrevealing -hold on further IV iron -- has had 2 doses -transfuse prn to get hgb > 8-- including today; would give lasix 40 IV after transfusion (5) Abnormal renal ultrasound: Her right kidney has further atrophied and even disappeared in the decade since it was last imaged. Multiple renal cysts on the left with possible kidney stone. She has very little normal renal tissue and minimal renal reserves Admission and Anticipated Discharge Date Admission Date: March 08, 2021 Subjective no further dizziness, chest pain, sob, edema; remains fatigued; troponin 24 yesterday pm; cardiology following Had a unit of blood yesterday with only 0.2 mg/dL increase in hemoglobin this am; SBP remains labile Review of Systems Review of Systems: All systems reviewed & are unremarkable except as noted in Subjective Physical Exam Constitutional: well developed, well nourished, + obese and cooperative; no acute distress Eyes: EOM intact bilaterally ENMT: Ears: no external ear abnormality Mouth: + dry oral mucous membranes Neck: no nuchal rigidity Respiratory: normal respiratory effort; no respiratory distress and no cough Auscultation: lungs clear to auscultation bilaterally and + diminished lung sounds Cardiovascular: Rate/Rhythm: regular rate and regular rhythm Heart Sounds: + murmur Extremities: no edema Gastrointestinal (Abdomen): Inspection/Auscultation: abdomen normal to inspection and normal bowel sounds; abdomen not distended Percussion/Palpation: abdomen soft; abdomen nontender Musculoskeletal: Extremities: strength 5/5 throughout Skin: + rash (unchanged) Psychiatric: A+Ox3, euthymic affect Speech: normal rate/rhythm/volume of speech Insight: good insight Judgement: good judgement Results & Data ([facility]) Vital Signs (Past 12 Hours) Vital Signs Temp Pulse Resp BP Pulse Ox 03/11/21 07:08 37.4 C 72 19 150/65 H 96 03/11/21 03:22 37.2 C 84 20 108/57 L 95 03/10/21 23:28 36.7 C 67 18 133/64 98 Laboratory Results 03/11/21 05:29 03/11/21 05:29 Diagnostic Findings Transthoracic echocardiogram May 2 Mild concentric LVH Normal left ventricular systolic function, EF 55%. Normal right ventricular systolic function. Mild left atrial dilatation. No significant valvular disease (1) Anemia Anemia type: unspecified type Qualified Code(s): D64.9 - Anemia, unspecified (2) Acute on chronic renal failure Acute renal failure type: unspecified Chronic kidney disease stage: stage 4 (severe) Qualified Code(s): N17.9 - Acute kidney failure, unspecified; N18.4 - Chronic kidney disease, stage 4 (severe)
--- NOTE | 2021-03-11 09:51 | Cardiology Progress Note ---
Date of Service March 11, 2021 Assessment & Plan (1) Acute on chronic renal failure: The patient has a history of chronic renal failure which is worsened and created electrolyte abnormalities. (2) Chest pain: The chest pain is difficult to evaluate at this time. She has plenty of medical problems that need to be addressed. More alert today and not expressing any chest pain. (3) Anemia: We should try to keep the patient's hemoglobin above 8. After the transfusion of 1 unit yesterday it is still low at 7.6 so I would give her another unit today and as recommended by nephrology and extra dose of Lasix afterwards. (4) DM (diabetes mellitus) type II controlled with renal manifestation: Managed by medicine and nephrology. (5) Troponin level elevated: Troponins remain elevated. Her LV function did not look bad on the echocardiogram or at least she had no wall motion abnormalities that would suggest a recent acute infarct. I think the elevation is multifactorial including demand ischemia from her anemia which should be corrected. Would not recommend anticoagulation at this time due to previous heme positive stools and no definite source. Admission and Anticipated Discharge Date Admission Date: March 08, 2021 Subjective The patient is more alert today. She expresses no complaints and has not had any recent chest pain. Review of Systems Review of Systems: All systems reviewed & are unremarkable except as noted in Subjective Physical Exam Physical Exam: General: no acute distress and stated age Head: normocephalic, no masses, lesions, tenderness or abnormalities Eyes: conjunctiva are pink and non-injected, sclera clear Neck: supple, no adenopathy, no bruits, normal jugular venous pulse, no hepatojugular reflux Chest: normal shape and normal respiratory effort Lungs: clear to auscultation and percussion Cardiac Exam: - regular rate & rhythm, no murmurs gallops or rubs - normal S1, normal S2 Pulses: 2(+) throughout Abdomen: abdomen soft, non-tender, no abnormal masses and no hepatosplenomegaly Musculoskeletal: no gait disturbance, no joint inflammation, no deforming arthritis Extremities: no edema and no cyanosis Neuro: grossly normal exam Results & Data ([facility]) Vital Signs (Past 12 Hours) Vital Signs Temp Pulse Resp BP Pulse Ox 03/11/21 07:08 37.4 C 72 19 150/65 H 96 03/11/21 03:22 37.2 C 84 20 108/57 L 95 03/10/21 23:28 36.7 C 67 18 133/64 98 Laboratory Results Laboratory Results - last 24 hr 03/08/21 03/09/21 03/10/21 18:52 05:23 11:32 WBC RBC Hgb Hct MCV MCH MCHC RDW Std Deviation RDW Coeff of Fanta Plt Count MPV Immature Gran % (Auto) Neut % (Auto) Lymph % (Auto) Rogers % (Auto) Eos % (Auto) Baso % (Auto) Neut # (Auto) Lymph # (Auto) Rogers # (Auto) Eos # (Auto) Baso # (Auto) Immature Gran # (Auto) RBC Morphology Peripher Smr Path Cons Sodium Potassium Chloride Carbon Dioxide Anion Gap BUN Creatinine Est Cr Clr Drug Dosing Est GFR ( Amer) Est GFR (Non-Af Amer) BUN/Creatinine Ratio Glucose POC Glucose 148 H Calcium Total Bilirubin AST ALT Alkaline Phosphatase Troponin I Total Protein Albumin Globulin Albumin/Globulin Ratio Ur Creatinine 24 Hour Ur Total Protein 24 Hr Protein/Creat Ratio 24h Urine Albumin (%) U Euheo-4-Ycvtxdwp (%) U Velrj-6-Gxpqmsyf (%) U Beta Globulin (%) U Gamma Globulin (%) U Abnormal Prot Band 1 U Abnormal Prot Band 2 U Abnormal Prot Band 3 Urine PEP Interpret Stool Occult Bld Scrn Blood Type O Positive Antibody Screen NEGATIVE Crossmatch See Detail 03/10/21 03/10/21 03/10/21 13:52 14:00 16:08 WBC RBC Hgb Hct MCV MCH MCHC RDW Std Deviation RDW Coeff of Fanta Plt Count MPV Immature Gran % (Auto) Neut % (Auto) Lymph % (Auto) Rogers % (Auto) Eos % (Auto) Baso % (Auto) Neut # (Auto) Lymph # (Auto) Rogers # (Auto) Eos # (Auto) Baso # (Auto) Immature Gran # (Auto) RBC Morphology Peripher Smr Path Cons Sodium Potassium Chloride Carbon Dioxide Anion Gap BUN Creatinine Est Cr Clr Drug Dosing Est GFR ( Amer) Est GFR (Non-Af Amer) BUN/Creatinine Ratio Glucose POC Glucose 149 H Calcium Total Bilirubin AST ALT Alkaline Phosphatase Troponin I 21.000 H* Total Protein Albumin Globulin Albumin/Globulin Ratio Ur Creatinine 24 Hour Ur Total Protein 24 Hr Protein/Creat Ratio 24h Urine Albumin (%) U Tzlnt-4-Amwjhzvh (%) U Sgmnt-7-Facclqsd (%) U Beta Globulin (%) U Gamma Globulin (%) U Abnormal Prot Band 1 U Abnormal Prot Band 2 U Abnormal Prot Band 3 Urine PEP Interpret Stool Occult Bld Scrn Positive A Blood Type Antibody Screen Crossmatch 03/10/21 03/10/21 03/10/21 19:59 20:40 20:46 WBC RBC Hgb Hct MCV MCH MCHC RDW Std Deviation RDW Coeff of Fanta Plt Count MPV Immature Gran % (Auto) Neut % (Auto) Lymph % (Auto) Rogers % (Auto) Eos % (Auto) Baso % (Auto) Neut # (Auto) Lymph # (Auto) Rogers # (Auto) Eos # (Auto) Baso # (Auto) Immature Gran # (Auto) RBC Morphology Peripher Smr Path Cons Sodium Potassium Chloride Carbon Dioxide Anion Gap BUN Creatinine Est Cr Clr Drug Dosing Est GFR ( Amer) Est GFR (Non-Af Amer) BUN/Creatinine Ratio Glucose POC Glucose 136 H Calcium Total Bilirubin AST ALT Alkaline Phosphatase Troponin I 24.000 H* Total Protein Albumin Globulin Albumin/Globulin Ratio Ur Creatinine 24 Hour Pending Ur Total Protein 24 Hr Pending Protein/Creat Ratio 24h Pending Urine Albumin (%) Pending U Plqfo-8-Omutbjok (%) Pending U Xtjlh-3-Ixgibxap (%) Pending U Beta Globulin (%) Pending U Gamma Globulin (%) Pending U Abnormal Prot Band 1 Pending U Abnormal Prot Band 2 Pending U Abnormal Prot Band 3 Pending Urine PEP Interpret Pending Stool Occult Bld Scrn Blood Type Antibody Screen Crossmatch 03/11/21 03/11/21 03/11/21 05:29 05:29 07:06 WBC 12.18 H RBC 2.70 L Hgb 7.6 L Hct 23.9 L MCV 88.5 MCH 28.1 MCHC 31.8 L RDW Std Deviation 53.8 H RDW Coeff of Fanta 16.8 H Plt Count 314 MPV 8.8 Immature Gran % (Auto) 0.4 Neut % (Auto) 72.5 Lymph % (Auto) 12.2 Rogers % (Auto) 9.9 Eos % (Auto) 4.8 Baso % (Auto) 0.2 Neut # (Auto) 8.83 H Lymph # (Auto) 1.49 Rogers # (Auto) 1.21 H Eos # (Auto) 0.58 H Baso # (Auto) 0.02 Immature Gran # (Auto) 0.05 H RBC Morphology Unremarkable Peripher Smr Path Cons Sodium 142 Potassium 4.7 D Chloride 114 H Carbon Dioxide 21 Anion Gap 7.0 BUN 53 H Creatinine 4.08 H D Est Cr Clr Drug Dosing 13.1 Est GFR ( Amer) 11.8 Est GFR (Non-Af Amer) 10.2 BUN/Creatinine Ratio 12.9 Glucose 120 H POC Glucose 117 H Calcium 9.4 Total Bilirubin 0.3 AST 56 H ALT 25 Alkaline Phosphatase 86 Troponin I Total Protein 6.0 L Albumin 2.7 L Globulin 3.3 Albumin/Globulin Ratio 0.8 L Ur Creatinine 24 Hour Ur Total Protein 24 Hr Protein/Creat Ratio 24h Urine Albumin (%) U Cwtrv-9-Skszhvkp (%) U Kyyzw-5-Mhcnipvc (%) U Beta Globulin (%) U Gamma Globulin (%) U Abnormal Prot Band 1 U Abnormal Prot Band 2 U Abnormal Prot Band 3 Urine PEP Interpret Stool Occult Bld Scrn Blood Type Antibody Screen Crossmatch Medications Administered Current Inpatient Medications Acetaminophen (Acetaminophen 325 Mg Tab) 650 mg PO Q4H PRN PRN Reason: Pain or Fever Stop: 04/07/21 22:37 Last Admin: 03/11/21 08:59 Dose: 650 mg Documented by: Allopurinol (Allopurinol 100 Mg Tab) 100 mg PO [facility] Stop: 04/08/21 08:59 Last Admin: 03/11/21 08:30 Dose: 100 mg Documented by: Amlodipine Besylate (Amlodipine Besylate 5 Mg Tab) 5 mg PO [facility] Stop: 04/08/21 08:59 Last Admin: 03/11/21 08:30 Dose: 5 mg Documented by: Aspirin (Aspirin 81 Mg Ectab) 81 mg PO [facility] Stop: 04/08/21 08:59 Last Admin: 03/11/21 08:30 Dose: 81 mg Documented by: Dextrose (Dextrose 50% 50 Ml Syringe) 25 - 50 ml IV UD PRN; Protocol PRN Reason: Hypoglycemia Protocol Stop: 04/07/21 23:14 Famotidine (Famotidine 20 Mg Tab) 20 mg PO DAILY PRN PRN Reason: Acid Reflux Stop: 04/07/21 22:37 Last Admin: 03/09/21 19:43 Dose: 20 mg Documented by: Glucagon (Glucagon For Inj 1 Mg Vial) 1 mg SQ UD PRN; Protocol PRN Reason: Hypoglycemia Protocol Stop: 04/07/21 23:14 Glucose (Glucose 40% Gel 15 Gm Tube) 15 - 30 gm PO UD PRN; Protocol PRN Reason: Hypoglycemia Protocol Stop: 04/07/21 23:14 Glucose (Glucose 10 Tabs/Tube) 4 - 8 tabs PO UD PRN; Protocol PRN Reason: Hypoglycemia Protocol Stop: 04/07/21 23:14 Haloperidol Lactate (Haloperidol Lactate 5 Mg/Ml 1 Ml Vial) 2 mg IM Q8H PRN PRN Reason: Agitation Stop: 04/09/21 07:44 Insulin Aspart (Insulin Aspart 100 Units/Ml 3 Ml Pen) 0 units SC ACHS BRAEDEN Stop: 04/07/21 22:37 Last Admin: 03/11/21 08:11 Dose: 2 units Documented by: Insulin Glargine (Insulin Glargine Solostar 100 Units/Ml 3 Ml Pen) 10 units SC HS BRAEDEN Stop: 04/07/21 22:59 Last Admin: 03/10/21 20:57 Dose: 10 units Documented by: Isosorbide Mononitrate (Isosorbide Rogers Extended Rel 30 Mg Tabcr) 30 mg PO QPM BRAEDEN Stop: 04/07/21 22:37 Last Admin: 03/10/21 20:26 Dose: 30 mg Documented by: Labetalol HCl (Labetalol Hcl Iv 5 Mg/Ml 20ml) 20 mg IV Q6H PRN PRN Reason: Blood Pressure - High Stop: 04/09/21 07:35 Miscellaneous (Carbohydrates For Hypoglycemia ) 15 - 30 gm PO UD PRN PRN Reason: Hypoglycemia Treatment Stop: 04/07/21 23:14 Nitroglycerin (Nitroglycerin Sl 0.4 Mg/Tab Tab) 0.4 mg SL UD PRN PRN Reason: Chest Pain Stop: 04/07/21 22:37 Polyethylene Glycol (Polyethylene (Miralax) 17 Gm Pack) 17 gm PO DAILY PRN PRN Reason: Constipation Stop: 04/07/21 22:37 Rosuvastatin Calcium (Rosuvastatin Calcium 20 Mg Tab) 40 mg PO DAILY BRAEDEN Stop: 04/08/21 08:59 Last Admin: 03/11/21 08:29 Dose: 40 mg Documented by: Vitamin B Complex (Vitamin B Complex Tab) 1 tab PO QPM BRAEDEN Stop: 04/07/21 22:59 Last Admin: 03/10/21 20:26 Dose: 1 tab Documented by: (1) Anemia Anemia type: unspecified type Qualified Code(s): D64.9 - Anemia, unspecified (2) Acute on chronic renal failure Acute renal failure type: unspecified Chronic kidney disease stage: stage 4 (severe) Qualified Code(s): N17.9 - Acute kidney failure, unspecified; N18.4 - Chronic kidney disease, stage 4 (severe)
[2021-03-11] MEDS ORDERED: SODIUM CHLORIDE 0.9% 250 ML IV PRN (11:36)
[2021-03-11] MEDS: FUROSEMIDE 40 MG in SYRINGE 0 ML IV SCH ×2 (16:59→23:35)
[2021-03-11] MEDS: VITAMIN B COMPLEX TAB PO SCH (20:17)
[2021-03-11] MEDS: ISOSORBIDE MONO EXTENDED REL 30 MG TABCR PO SCH (20:17)
[2021-03-11] MEDS: INSULIN GLARGINE SOLOSTAR 100 UNITS/ML 3 ML PEN SC SCH (20:47)
[2021-03-11 20:58] LABS: Appearance Urine Clear (Clear); Bacteria Urine Automated Negative (Negative); Bilirubin Urine Negative (Negative); Blood Urine 1+ (Negative); Cast Urine Automated 0 /lpf (0-5); Color Urine Yellow; Glucose Urine UA Negative (Negative); Ketones Urine Negative (Negative); Leukocyte Esterase Urine Negative (Negative); Nitrite Urine Negative (Negative); Protein Urine Trace (Negative); RBC Urine Automated 0-4 /hpf (0-4); Specific Gravity Urine 1.009 (1.000-1.030); Urobilinogen Urine Negative (Negative)
[2021-03-11 21:17] LABS: Creatinine Urine Random < 13.0 mg/dl; Total Protein Urine Random 27.5 mg/dl (0-11.9)
[2021-03-12 06:49] LABS: Basophils # (auto) 0.01 K/uL (0-0.2); Basophils % (auto) 0.1 %; Eosinophils # (auto) 0.62 K/uL (0-0.5); Eosinophils % (auto) 6.8 %; Hematocrit (blood only) 29.5 % (37-47); Hemoglobin 9.5 g/dL (12.0-16.0); Immature Granulocytes # (auto) 0.04 K/uL (0.00-0.02); Immature Granulocytes % (auto) 0.4 %; Lymphocytes % (auto) 13.1 %; Mean Corpuscular Hemoglobin 27.6 pg (25-34); Mean Corpuscular Hgb Conc 32.2 g/dL (32-36); Mean Corpuscular Volume 85.8 fL (80-100); Mean Platelet Volume 8.9 fL (7.4-10.4); Monocytes # (auto) 1.33 K/uL (0.11-0.59); Monocytes % (auto) 14.5 %; Neutrophils # (auto) 5.96 K/uL (1.4-6.5); Neutrophils % (auto) 65.1 %; Platelet Count 288 K/uL (130-400); RDW Coefficient of Variation 17.3 % (11.5-14.5); Red Blood Count 3.44 M/uL (4.2-5.4); White Blood Count 9.16 K/uL (4.8-10.8)
[2021-03-12 07:26] LABS: Albumin Globulin Ratio 0.8 (0.9-2); Albumin Level 2.7 gm/dl (3.4-5.0); BUN Creatinine Ratio 12.6 (10-20); Bilirubin,Total 0.4 mg/dl (0.2-1); Calcium 10.2 mg/dl (8.5-10.1); Creatinine Clr Calc Pharmacy 12.7 ml/min; Est GFR (African American) 11.5; Est GFR (Non-African American) 9.9; Globulin 3.5 gm/dl (2.5-4.0); Potassium 3.7 mmol/L (3.5-5.1); Total Protein 6.2 gm/dl (6.4-8.2)
[2021-03-12] MEDS: INSULIN ASPART 100 UNITS/ML 3 ML PEN SC SCH ×4 (07:59→20:58)
[2021-03-12] MEDS: ROSUVASTATIN CALCIUM 20 MG TAB PO SCH (08:00)
[2021-03-12] MEDS: ASPIRIN 81 MG ECTAB PO SCH (08:00)
[2021-03-12] MEDS: amLODIPine BESYLATE 5 MG TAB PO SCH (08:00)
[2021-03-12] MEDS: allopurinoL 100 MG TAB PO SCH (08:00)
--- NOTE | 2021-03-12 08:47 | Electrocardiogram Report ---
Test Reason : Blood Pressure : / mmHG Vent. Rate : 074 BPM Atrial Rate : 074 BPM P-R Int : 204 ms QRS Dur : 138 ms QT Int : 456 ms P-R-T Axes : 042 -57 025 degrees QTc Int : 506 ms Normal sinus rhythm with sinus arrhythmia Right bundle branch block Left anterior fascicular block Abnormal ECG When compared with ECG of 10-MAR-2021 14:37, Sinus rhythm has replaced Atrial fibrillation Criteria for Septal infarct are no longer Present Confirmed by Trace Miller ([id number]) on 03/12/2021 8:47:21 AM Referred By: Ale Izaguirre Confirmed By:Trace Miller
--- NOTE | 2021-03-12 09:43 | Hospitalist Progress Note ---
Date of Service March 12, 2021 Assessment & Plan (1) Acute renal failure: (2) Hypercalcemia: (3) Neuropathy of foot: (4) CAD (coronary artery disease): (5) DM (diabetes mellitus) type II controlled with renal manifestation: (6) HTN (hypertension): (7) HLD (hyperlipidemia): (8) CKD (chronic kidney disease) stage 3, GFR 30-59 ml/min: ASSESSMENT AND PLAN: This is a 71-year-old female who presents with acute kidney injury, hypercalcemia and anemia. 1. Acute kidney injury on chronic kidney disease stage IV: Baseline creatinine was 1.8 last year, it was 4.3 on admission and 4.17 today. 2. Hypercalcemia: Resolved We will keep multiple myeloma in differential. Still pending. 3. Anemia: The patient has history of anemia of chronic kidney disease. The patient is on iron supplements. Her hemoglobin was 12.7 in November of 2019 + fecal occult blood (On PO Fe), Iron is low despite PO Fe, vitamin B12, and folate levels. IV iron given. Hold PO Fe, Currently hemodynamically stable. Received 3 units of PRBCs total and IV Fe, so no more iron for several months 4. Diabetes: Placed on insulin sliding scale. Follow the blood sugars, follow HbA1c level. 5. Hypertension: Holding telmisartan for now. Continue amlodipine and isosorbide mononitrate. Holding Lasix. Will monitor blood pressure. Labetalol 20 IV Q6H Prn, May have had HTN encephalopathy +AMS and Psychosis resolved, Trop Elevated Cards on case 6. History of hyperlipidemia: Continue Crestor. 7. History of gout: Continue allopurinol. 8. Prolonged QTc: Avoid QT prolonging drugs. 9. History of coronary artery disease: Currently asymptomatic. Continue her aspirin and statin. Her echo from May 2019 shows EF of 65% and moderately concentric LVH, LV wall thickness. 10. History of gastroesophageal reflux disease: Continue on Pepcid as needed. 11. History of chronic osteomyelitis, status post right toe amputation in July 2019. 12. History of right atrophic kidney. 13. History of peripheral neuropathy and poor ambulatory status.Pt/Ot prior to discharge 14. Deep venous thrombosis prophylaxis: Sequential compression devices for now. 15. Disposition: tele floor. Level 1 full code as per my discussion with the patient. PT and OT prior to discharge. Social service to help with discharge planning. Labs checked, w/u still pending, Possible DC toay w tight follow up ROS-No Headache, No Visual Changes, No Nausea, No Vomiting, No Fever, No Chills, No Neck Pain or Stiffness, No Chest Pain, No Palpitations, No SOB, No SUAREZ, No Cough, No Sputum, No Wheezing, No Abdominal Pain, No Diarrhea, No Hematemesis, No Hemoptysis, No Unexpected Weight Loss, No Flank pain, No Melena, No Hematochezia, No Frequency, No Urgency, No Burning, No Hematuria, No Rashes, No Diaphoresis. Appetite is Normal Physical Exam Gen-AAO x 3, NAD, Afebrile Head-NCAT, EOMI, PERRLA, Anicteric Sclera, No Posterior Pharyngeal Erythema Neck-Supple, No JVD, No Thyromegaly, No Masses, No LAD, No Bruits Lungs-Clear to Auscultation Bilaterally, No Rales, No Rhonchi, No Wheezing, No Crepitus Chest-No S4, +S1, +S2, No S3, No Murmurs, No Rubs, No Gallops, No Ectopy Abdomen-Soft, Bowel Sounds Present, Non Tender, Non Distended, No Hepatomegaly, No Splenomegaly, No Palpable Masses, No Rebound, No Rigidity, No Guarding Musculoskeletal-Full Range of Motion Bilaterally, No CVAT Extremities-No Cyanosis, No Clubbing, No Edema Nuero-Cranial Nerves II-XII grossly intact, Motor WNL, DTRs WNL, Strength WNL, Non Focal Psych-Normal Mood Admission and Anticipated Discharge Date Admission Date: March 08, 2021 Results & Data Results & Data ([facility]) Vital Signs (Past 12 Hours) Vital Signs Temp Pulse Pulse Resp BP BP Pulse Ox 03/12/21 07:23 36.6 C 72 18 151/71 H 98 03/12/21 03:30 36.7 C 90 70 16 131/66 96 03/11/21 23:30 37.2 C 76 16 143/68 H 92 03/11/21 23:09 37.2 C 76 16 151/64 H 94 03/11/21 22:21 37.1 C 77 16 155/70 H 95 03/11/21 22:09 37.1 C 77 16 155/70 H 95 (1) Acute renal failure Acute renal failure type: unspecified Qualified Code(s): N17.9 - Acute kidney failure, unspecified
--- NOTE | 2021-03-12 09:51 | Nephrology Progress Note ---
Date of Service March 12, 2021 Assessment & Plan (1) Acute on chronic renal failure: slow/some improvement in setting of essentially solitary kidney w/ baseline CKD 4 e GFR about 20 ml/min at baseline and historically 1/2 gm daily proteinuria > OP labs w/ creatinine 4.3 on March 08 and on presentation now 1.8 gm proteinuria in setting of new onset hypercalcemia and markedly worsened chronic anemia. ?relation to ozempic dose -- we have not had OP labs as indicated/desired; she did however have 1 set of labs after starting this medication a year back in April 2020 with creatinine 1.8 at the time. no urgent need for dialysis but she is quite close to starting and should not leave w/o a plan in place differential >> SHANNAN on CKD ? related to increased semaglutide; concern also for multiple myeloma w/ renal involvement; or likeliest simply progression of advanced CKD in setting of DM, solitary kidney (though other lab parameters unexplained in this scenario) -continue renal diet -eval for myeloma as below in process; note her proteinuria is very labile none on recheck ! -daily bmp >>no acute indication for dialysis; if she needs dialysis this admission will ideally work for urgent start PD; if not started this admission will need firm plan in place for access placement post d/c >> pt wishes to have PD cath placed by Dr Medina and will arrange for his team to evaluate pt before d/c Care coordinated w/ Francesca Mckeon, Carol. (2) Hypercalcemia: resolved w/ NS but creeping up now and 11.2 corrected. await remaining GLO labs; daily bmp; cont to avoid D supplements and Ca rich meds; w/ anemia and worse renal failure and this finding worry about myeloma; pt w/ 500 mg hx of proteinuria historically and 2 gm on presentation; now w/ proteinuria resovled. PTH suppressed/ low nl at 23. -f/u pending kappa lambda light chains, serum YOLANDA, beta-2 microglobulin serum and urine, protein electrophoresis serum and urine, PTH RP -daily bmp (3) Hypertensive emergency without congestive heart failure: resolved; elevated blood pressures admission through 03/10 in setting of transient confusion, of elevated troponin /demand ischemia> -target sbp remains 130-150s for now -transfusion to keep hgb 8 or better recommended -f/u cardiology recs >> not a cath candidate, no anticoagulation (4) Anemia: Unremarkable colonoscopy apart from adenomatous polyp for 5-year follow-up in January 2020. severe iron deficinecy (7% t stn on OP labs). ?cause. FOBT + and now negative ; reticulocyte count high normal/wnl/as expected. Hemoglobin generally in the 11's presenting hemoglobin low sevens on presentation. PS unrevealing -continue to load w/ IV iron -- has had 2 doses -transfuse prn to keep hgb > 8-- including today; would give lasix 40 IV after transfusions (5) Abnormal renal ultrasound: Her right kidney has further atrophied and even disappeared in the decade since it was last imaged. Multiple renal cysts on the left with possible kidney stone. She has very little normal renal tissue and minimal renal reserves Admission and Anticipated Discharge Date Admission Date: March 08, 2021 Subjective seen on rounds at about 1145; no sob, no further AMS, no voiding concerns; ambulating some, no dizziness or chest pain, no edema, tolerating po Review of Systems Review of Systems: All systems reviewed & are unremarkable except as noted in Subjective Physical Exam Constitutional: well developed, well nourished, + obese and cooperative; no acute distress sitting up in chair on RA Eyes: EOM intact bilaterally ENMT: Ears: no external ear abnormality Nose: no external nose abnormality Mouth: + dry oral mucous membranes Neck: no nuchal rigidity Respiratory: normal respiratory effort; no respiratory distress and no cough Auscultation: lungs clear to auscultation bilaterally and + diminished lung sounds Cardiovascular: Rate/Rhythm: regular rate and regular rhythm Heart Sounds: + murmur Extremities: no edema Gastrointestinal (Abdomen): Inspection/Auscultation: abdomen normal to inspection and normal bowel sounds; abdomen not distended Percussion/Palpation: abdomen soft; abdomen nontender Musculoskeletal: Extremities: strength 5/5 throughout Skin: + rash (unchanged) Psychiatric: A+Ox3, euthymic affect Speech: normal rate/rhythm/volume of speech Insight: good insight Judgement: good judgement Results & Data ([facility]) Vital Signs (Past 12 Hours) Vital Signs Temp Pulse Pulse Resp BP BP Pulse Ox 03/12/21 07:23 36.6 C 72 18 151/71 H 98 03/12/21 03:30 36.7 C 90 70 16 131/66 96 03/11/21 23:30 37.2 C 76 16 143/68 H 92 03/11/21 23:09 37.2 C 76 16 151/64 H 94 03/11/21 22:21 37.1 C 77 16 155/70 H 95 03/11/21 22:09 37.1 C 77 16 155/70 H 95 Laboratory Results 03/12/21 06:09 03/12/21 06:09 (1) Anemia Anemia type: unspecified type Qualified Code(s): D64.9 - Anemia, unspecified (2) Acute on chronic renal failure Acute renal failure type: unspecified Chronic kidney disease stage: stage 4 (severe) Qualified Code(s): N17.9 - Acute kidney failure, unspecified; N18.4 - Chronic kidney disease, stage 4 (severe)
--- NOTE | 2021-03-12 12:59 | Cardiology Progress Note ---
Date of Service March 12, 2021 Assessment & Plan (1) Acute on chronic renal failure: Nephrology note appreciated. Patient is considering peritoneal dialysis. (2) Chest pain: I believe the patient was experiencing angina due to profound anemia. (3) Anemia: The patient has a history of iron deficiency and had actually received Venofer infusions several years ago. Unfortunately, she has not been compliant with blood work and therefore her iron deficiency anemia was not followed and kept under good control. (4) DM (diabetes mellitus) type II controlled with renal manifestation: Managed by medicine and nephrology. (5) Troponin level elevated: Troponin elevation was most likely multifactorial including stress related to her profound anemia as well as renal insufficiency. I do not believe any additional cardiac testing is indicated at this time. Admission and Anticipated Discharge Date Admission Date: March 08, 2021 Subjective The patient is alert and oriented today. She is pleasantly conversive. Review of Systems Review of Systems: All systems reviewed & are unremarkable except as noted in Subjective Physical Exam Physical Exam: General: no acute distress and stated age Head: normocephalic, no masses, lesions, tenderness or abnormalities Eyes: conjunctiva are pink and non-injected, sclera clear Neck: supple, no adenopathy, no bruits, normal jugular venous pulse, no hepatojugular reflux Chest: normal shape and normal respiratory effort Lungs: clear to auscultation and percussion Cardiac Exam: - regular rate & rhythm, no murmurs gallops or rubs - normal S1, normal S2 Pulses: 2(+) throughout Abdomen: abdomen soft, non-tender, no abnormal masses and no hepatosplenomegaly Musculoskeletal: no gait disturbance, no joint inflammation, no deforming arthritis Extremities: no edema and no cyanosis Neuro: grossly normal exam Results & Data ([facility]) Vital Signs (Past 12 Hours) Vital Signs Temp Pulse Pulse Resp BP Pulse Ox 03/12/21 11:40 37.5 C 81 16 143/69 H 03/12/21 07:23 36.6 C 72 18 151/71 H 98 03/12/21 03:30 36.7 C 90 70 16 131/66 96 Laboratory Results Laboratory Results - last 24 hr 03/11/21 03/11/21 03/11/21 05:29 16:14 20:00 WBC RBC Hgb Hct MCV MCH MCHC RDW Std Deviation RDW Coeff of Fanta Plt Count MPV Immature Gran % (Auto) Neut % (Auto) Lymph % (Auto) [place] % (Auto) Eos % (Auto) Baso % (Auto) Neut # (Auto) Lymph # (Auto) [place] # (Auto) Eos # (Auto) Baso # (Auto) Immature Gran # (Auto) Sodium Potassium Chloride Carbon Dioxide Anion Gap BUN Creatinine Est Cr Clr Drug Dosing Est GFR ( Amer) Est GFR (Non-Af Amer) BUN/Creatinine Ratio Glucose POC Glucose 116 H Calcium Total Bilirubin AST ALT Alkaline Phosphatase Total Protein Albumin Globulin Albumin/Globulin Ratio Urine Color Yellow Urine Appearance Clear Urine pH 7.0 Ur Specific Brick 1.009 Urine Protein Trace H Urine Glucose (UA) Negative Urine Ketones Negative Urine Blood 1+ H Urine Nitrite Negative Urine Bilirubin Negative Urine Urobilinogen Negative Ur Leukocyte Esterase Negative Urine WBC (Auto) 1-5 Urine RBC (Auto) 0-4 U Hyaline Cast (Auto) 0 U Epithel Cells (Auto) 10-20 H Urine Bacteria (Auto) Negative Ur Random Creatinine U Random Total Protein Protein/Creatinin Ratio Blood Type O Positive Antibody Screen NEGATIVE Crossmatch See Detail 03/11/21 03/11/21 03/12/21 20:00 20:22 06:09 WBC 9.16 RBC 3.44 L Hgb 9.5 L Hct 29.5 L MCV 85.8 MCH 27.6 MCHC 32.2 RDW Std Deviation 53.0 H RDW Coeff of Fanta 17.3 H Plt Count 288 MPV 8.9 Immature Gran % (Auto) 0.4 Neut % (Auto) 65.1 Lymph % (Auto) 13.1 [place] % (Auto) 14.5 Eos % (Auto) 6.8 Baso % (Auto) 0.1 Neut # (Auto) 5.96 Lymph # (Auto) 1.20 [place] # (Auto) 1.33 H Eos # (Auto) 0.62 H Baso # (Auto) 0.01 Immature Gran # (Auto) 0.04 H Sodium Potassium Chloride Carbon Dioxide Anion Gap BUN Creatinine Est Cr Clr Drug Dosing Est GFR ( Amer) Est GFR (Non-Af Amer) BUN/Creatinine Ratio Glucose POC Glucose 163 H Calcium Total Bilirubin AST ALT Alkaline Phosphatase Total Protein Albumin Globulin Albumin/Globulin Ratio Urine Color Urine Appearance Urine pH Ur Specific Brick Urine Protein Urine Glucose (UA) Urine Ketones Urine Blood Urine Nitrite Urine Bilirubin Urine Urobilinogen Ur Leukocyte Esterase Urine WBC (Auto) Urine RBC (Auto) U Hyaline Cast (Auto) U Epithel Cells (Auto) Urine Bacteria (Auto) Ur Random Creatinine < 13.0 U Random Total Protein 27.5 H Protein/Creatinin Ratio TNP Blood Type Antibody Screen Crossmatch 03/12/21 03/12/21 03/12/21 06:09 07:45 11:12 WBC RBC Hgb Hct MCV MCH MCHC RDW Std Deviation RDW Coeff of Fanta Plt Count MPV Immature Gran % (Auto) Neut % (Auto) Lymph % (Auto) [place] % (Auto) Eos % (Auto) Baso % (Auto) Neut # (Auto) Lymph # (Auto) [place] # (Auto) Eos # (Auto) Baso # (Auto) Immature Gran # (Auto) Sodium 142 Potassium 3.7 D Chloride 111 H Carbon Dioxide 23 Anion Gap 8.0 BUN 53 H Creatinine 4.17 H Est Cr Clr Drug Dosing 12.7 Est GFR ( Amer) 11.5 Est GFR (Non-Af Amer) 9.9 BUN/Creatinine Ratio 12.6 Glucose 109 H POC Glucose 121 H 218 H Calcium 10.2 H Total Bilirubin 0.4 AST 40 H ALT 20 Alkaline Phosphatase 84 Total Protein 6.2 L Albumin 2.7 L Globulin 3.5 Albumin/Globulin Ratio 0.8 L Urine Color Urine Appearance Urine pH Ur Specific Brick Urine Protein Urine Glucose (UA) Urine Ketones Urine Blood Urine Nitrite Urine Bilirubin Urine Urobilinogen Ur Leukocyte Esterase Urine WBC (Auto) Urine RBC (Auto) U Hyaline Cast (Auto) U Epithel Cells (Auto) Urine Bacteria (Auto) Ur Random Creatinine U Random Total Protein Protein/Creatinin Ratio Blood Type Antibody Screen Crossmatch Medications Administered Current Inpatient Medications Acetaminophen (Acetaminophen 325 Mg Tab) 650 mg PO Q4H PRN PRN Reason: Pain or Fever Stop: 04/07/21 22:37 Last Admin: 03/11/21 22:33 Dose: 650 mg Documented by: Allopurinol (Allopurinol 100 Mg Tab) 100 mg PO [facility] Stop: 04/08/21 08:59 Last Admin: 03/12/21 08:00 Dose: 100 mg Documented by: Amlodipine Besylate (Amlodipine Besylate 5 Mg Tab) 5 mg PO [facility] Stop: 04/08/21 08:59 Last Admin: 03/12/21 08:00 Dose: 5 mg Documented by: Aspirin (Aspirin 81 Mg Ectab) 81 mg PO QAM [facility] Stop: 04/08/21 08:59 Last Admin: 03/12/21 08:00 Dose: 81 mg Documented by: Dextrose (Dextrose 50% 50 Ml Syringe) 25 - 50 ml IV UD PRN; Protocol PRN Reason: Hypoglycemia Protocol Stop: 04/07/21 23:14 Famotidine (Famotidine 20 Mg Tab) 20 mg PO DAILY PRN PRN Reason: Acid Reflux Stop: 04/07/21 22:37 Last Admin: 03/09/21 19:43 Dose: 20 mg Documented by: Glucagon (Glucagon For Inj 1 Mg Vial) 1 mg SQ UD PRN; Protocol PRN Reason: Hypoglycemia Protocol Stop: 04/07/21 23:14 Glucose (Glucose 40% Gel 15 Gm Tube) 15 - 30 gm PO UD PRN; Protocol PRN Reason: Hypoglycemia Protocol Stop: 04/07/21 23:14 Glucose (Glucose 10 Tabs/Tube) 4 - 8 tabs PO UD PRN; Protocol PRN Reason: Hypoglycemia Protocol Stop: 04/07/21 23:14 Haloperidol Lactate (Haloperidol Lactate 5 Mg/Ml 1 Ml Vial) 2 mg IM Q8H PRN PRN Reason: Agitation Stop: 04/09/21 07:44 Insulin Aspart (Insulin Aspart 100 Units/Ml 3 Ml Pen) 0 units SC ACHS [facility] Stop: 04/07/21 22:37 Last Admin: 03/12/21 12:26 Dose: 5 units Documented by: Insulin Glargine (Insulin Glargine Solostar 100 Units/Ml 3 Ml Pen) 10 units SC HS [facility] Stop: 04/07/21 22:59 Last Admin: 03/11/21 20:47 Dose: 10 units Documented by: Isosorbide Mononitrate (Isosorbide [place] Extended Rel 30 Mg Tabcr) 30 mg PO QPM [facility] Stop: 04/07/21 22:37 Last Admin: 03/11/21 20:17 Dose: 30 mg Documented by: Labetalol HCl (Labetalol Hcl Iv 5 Mg/Ml 20ml) 20 mg IV Q6H PRN PRN Reason: Blood Pressure - High Stop: 04/09/21 07:35 Miscellaneous (Carbohydrates For Hypoglycemia ) 15 - 30 gm PO UD PRN PRN Reason: Hypoglycemia Treatment Stop: 04/07/21 23:14 Nitroglycerin (Nitroglycerin Sl 0.4 Mg/Tab Tab) 0.4 mg SL UD PRN PRN Reason: Chest Pain Stop: 04/07/21 22:37 Polyethylene Glycol (Polyethylene (Miralax) 17 Gm Pack) 17 gm PO DAILY PRN PRN Reason: Constipation Stop: 04/07/21 22:37 Rosuvastatin Calcium (Rosuvastatin Calcium 20 Mg Tab) 40 mg PO DAILY [facility] Stop: 04/08/21 08:59 Last Admin: 03/12/21 08:00 Dose: 40 mg Documented by: Vitamin B Complex (Vitamin B Complex Tab) 1 tab PO QPM [facility] Stop: 04/07/21 22:59 Last Admin: 03/11/21 20:17 Dose: 1 tab Documented by: (1) Anemia Anemia type: unspecified type Qualified Code(s): D64.9 - Anemia, unspecified (2) Acute on chronic renal failure Acute renal failure type: unspecified Chronic kidney disease stage: stage 4 (severe) Qualified Code(s): N17.9 - Acute kidney failure, unspecified; N18.4 - Chronic kidney disease, stage 4 (severe)
[2021-03-12] MEDS: ISOSORBIDE MONO EXTENDED REL 30 MG TABCR PO SCH (20:58)
[2021-03-12] MEDS: VITAMIN B COMPLEX TAB PO SCH (20:58)
[2021-03-12] MEDS: INSULIN GLARGINE SOLOSTAR 100 UNITS/ML 3 ML PEN SC SCH (20:58)
[2021-03-13] MEDS: ACETAMINOPHEN 325 MG TAB PO PRN (03:36)
[2021-03-13 06:44] LABS: Hematocrit (blood only) 31.4 % (37-47); Hemoglobin 10.2 g/dL (12.0-16.0); Mean Corpuscular Hemoglobin 27.8 pg (25-34); Mean Corpuscular Hgb Conc 32.5 g/dL (32-36); Mean Corpuscular Volume 85.6 fL (80-100); Mean Platelet Volume 8.4 fL (7.4-10.4); Platelet Count 278 K/uL (130-400); RDW Coefficient of Variation 17.1 % (11.5-14.5); RDW Standard Deviation 52.4 fL (36.4-46.3); Red Blood Count 3.67 M/uL (4.2-5.4); White Blood Count 10.87 K/uL (4.8-10.8)
[2021-03-13 07:18] LABS: Albumin Level 2.7 gm/dl (3.4-5.0); BUN Creatinine Ratio 12.5 (10-20); Calcium 9.5 mg/dl (8.5-10.1); Creatinine Clr Calc Pharmacy 13.3 ml/min; Est GFR (African American) 12.3; Est GFR (Non-African American) 10.6; Potassium 3.7 mmol/L (3.5-5.1)
[2021-03-13 07:20] LABS: Albumin Globulin Ratio 0.8 (0.9-2); Bilirubin,Total 0.4 mg/dl (0.2-1); Globulin 3.5 gm/dl (2.5-4.0); Total Protein 6.2 gm/dl (6.4-8.2)
[2021-03-13] MEDS: INSULIN ASPART 100 UNITS/ML 3 ML PEN SC SCH ×2 (08:05→12:10)
[2021-03-13] MEDS: ROSUVASTATIN CALCIUM 20 MG TAB PO SCH (08:06)
[2021-03-13] MEDS: amLODIPine BESYLATE 5 MG TAB PO SCH (08:06)
[2021-03-13] MEDS: allopurinoL 100 MG TAB PO SCH (08:06)
[2021-03-13] MEDS: ASPIRIN 81 MG ECTAB PO SCH (08:06)
--- NOTE | 2021-03-13 11:30 | Cardiology Progress Note ---
Date of Service March 13, 2021 Assessment & Plan (1) Acute on chronic renal failure: Nephrology note appreciated. Being set up for possible fistula in the future. (2) Chest pain: I believe the patient was experiencing angina due to profound anemia. (3) Anemia: The patient has a history of iron deficiency and had actually received Venofer infusions several years ago. Unfortunately, she has not been compliant with blood work and therefore her iron deficiency anemia was not followed and kept under good control. (4) DM (diabetes mellitus) type II controlled with renal manifestation: Managed by medicine and nephrology. (5) Troponin level elevated: Troponin elevation was most likely multifactorial including stress related to her profound anemia as well as renal insufficiency. I do not believe any additional cardiac testing is indicated at this time. I believe the patient may be discharged per the hospitalist service. Admission and Anticipated Discharge Date Admission Date: March 08, 2021 Subjective The patient is alert and oriented. She is anxious to return home. Review of Systems Review of Systems: All systems reviewed & are unremarkable except as noted in Subjective Physical Exam Physical Exam: General: no acute distress and stated age Head: normocephalic, no masses, lesions, tenderness or abnormalities Eyes: conjunctiva are pink and non-injected, sclera clear Neck: supple, no adenopathy, no bruits, normal jugular venous pulse, no hepatojugular reflux Chest: normal shape and normal respiratory effort Lungs: clear to auscultation and percussion Cardiac Exam: - regular rate & rhythm, no murmurs gallops or rubs - normal S1, normal S2 Pulses: 2(+) throughout Abdomen: abdomen soft, non-tender, no abnormal masses and no hepatosplenomegaly Musculoskeletal: no gait disturbance, no joint inflammation, no deforming arthritis Extremities: no edema and no cyanosis Neuro: grossly normal exam Results & Data ([facility]) Vital Signs (Past 12 Hours) Vital Signs Temp Pulse Resp BP Pulse Ox Pulse Ox 03/13/21 08:00 98 03/13/21 07:05 36.9 C 72 20 143/74 H 98 03/13/21 03:04 37.2 C 81 17 125/69 94 Laboratory Results Laboratory Results - last 24 hr 03/12/21 03/12/21 03/13/21 16:12 20:16 06:33 WBC 10.87 H RBC 3.67 L Hgb 10.2 L Hct 31.4 L MCV 85.6 MCH 27.8 MCHC 32.5 RDW Std Deviation 52.4 H RDW Coeff of Fanta 17.1 H Plt Count 278 MPV 8.4 Sodium Potassium Chloride Carbon Dioxide Anion Gap BUN Creatinine Est Cr Clr Drug Dosing Est GFR ( Amer) Est GFR (Non-Af Amer) BUN/Creatinine Ratio Glucose POC Glucose 111 H 163 H Calcium Total Bilirubin AST ALT Alkaline Phosphatase Total Protein Albumin Globulin Albumin/Globulin Ratio 03/13/21 03/13/21 06:33 07:03 WBC RBC Hgb Hct MCV MCH MCHC RDW Std Deviation RDW Coeff of Fanta Plt Count MPV Sodium 141 Potassium 3.7 Chloride 111 H Carbon Dioxide 24 Anion Gap 6.0 BUN 49 H Creatinine 3.95 H Est Cr Clr Drug Dosing 13.3 Est GFR ( Amer) 12.3 Est GFR (Non-Af Amer) 10.6 BUN/Creatinine Ratio 12.5 Glucose 108 H POC Glucose 116 H Calcium 9.5 Total Bilirubin 0.4 AST 25 ALT 22 Alkaline Phosphatase 86 Total Protein 6.2 L Albumin 2.7 L Globulin 3.5 Albumin/Globulin Ratio 0.8 L Medications Administered Current Inpatient Medications Acetaminophen (Acetaminophen 325 Mg Tab) 650 mg PO Q4H PRN PRN Reason: Pain or Fever Stop: 04/07/21 22:37 Last Admin: 03/13/21 03:36 Dose: 650 mg Documented by: Allopurinol (Allopurinol 100 Mg Tab) 100 mg PO [facility] Stop: 04/08/21 08:59 Last Admin: 03/13/21 08:06 Dose: 100 mg Documented by: Amlodipine Besylate (Amlodipine Besylate 5 Mg Tab) 5 mg PO [facility] Stop: 04/08/21 08:59 Last Admin: 03/13/21 08:06 Dose: 5 mg Documented by: Aspirin (Aspirin 81 Mg Ectab) 81 mg PO [facility] Stop: 04/08/21 08:59 Last Admin: 03/13/21 08:06 Dose: 81 mg Documented by: Dextrose (Dextrose 50% 50 Ml Syringe) 25 - 50 ml IV UD PRN; Protocol PRN Reason: Hypoglycemia Protocol Stop: 04/07/21 23:14 Famotidine (Famotidine 20 Mg Tab) 20 mg PO DAILY PRN PRN Reason: Acid Reflux Stop: 04/07/21 22:37 Last Admin: 03/09/21 19:43 Dose: 20 mg Documented by: Glucagon (Glucagon For Inj 1 Mg Vial) 1 mg SQ UD PRN; Protocol PRN Reason: Hypoglycemia Protocol Stop: 04/07/21 23:14 Glucose (Glucose 40% Gel 15 Gm Tube) 15 - 30 gm PO UD PRN; Protocol PRN Reason: Hypoglycemia Protocol Stop: 04/07/21 23:14 Glucose (Glucose 10 Tabs/Tube) 4 - 8 tabs PO UD PRN; Protocol PRN Reason: Hypoglycemia Protocol Stop: 04/07/21 23:14 Haloperidol Lactate (Haloperidol Lactate 5 Mg/Ml 1 Ml Vial) 2 mg IM Q8H PRN PRN Reason: Agitation Stop: 04/09/21 07:44 Insulin Aspart (Insulin Aspart 100 Units/Ml 3 Ml Pen) 0 units SC ACHS [facility] Stop: 04/07/21 22:37 Last Admin: 03/13/21 08:05 Dose: 1 units Documented by: Insulin Glargine (Insulin Glargine Solostar 100 Units/Ml 3 Ml Pen) 10 units SC HS [facility] Stop: 04/07/21 22:59 Last Admin: 03/12/21 20:58 Dose: 10 units Documented by: Isosorbide Mononitrate (Isosorbide [place] Extended Rel 30 Mg Tabcr) 30 mg PO QPM [facility] Stop: 04/07/21 22:37 Last Admin: 03/12/21 20:58 Dose: 30 mg Documented by: Labetalol HCl (Labetalol Hcl Iv 5 Mg/Ml 20ml) 20 mg IV Q6H PRN PRN Reason: Blood Pressure - High Stop: 04/09/21 07:35 Miscellaneous (Carbohydrates For Hypoglycemia ) 15 - 30 gm PO UD PRN PRN Reason: Hypoglycemia Treatment Stop: 04/07/21 23:14 Nitroglycerin (Nitroglycerin Sl 0.4 Mg/Tab Tab) 0.4 mg SL UD PRN PRN Reason: Chest Pain Stop: 04/07/21 22:37 Polyethylene Glycol (Polyethylene (Miralax) 17 Gm Pack) 17 gm PO DAILY PRN PRN Reason: Constipation Stop: 04/07/21 22:37 Rosuvastatin Calcium (Rosuvastatin Calcium 20 Mg Tab) 40 mg PO DAILY [facility] Stop: 04/08/21 08:59 Last Admin: 03/13/21 08:06 Dose: 40 mg Documented by: Vitamin B Complex (Vitamin B Complex Tab) 1 tab PO QPM [facility] Stop: 04/07/21 22:59 Last Admin: 03/12/21 20:58 Dose: 1 tab Documented by: (1) Acute on chronic renal failure Acute renal failure type: unspecified Chronic kidney disease stage: stage 4 (severe) Qualified Code(s): N17.9 - Acute kidney failure, unspecified; N18.4 - Chronic kidney disease, stage 4 (severe) (2) Anemia Anemia type: unspecified type Qualified Code(s): D64.9 - Anemia, unspecified
--- NOTE | 2021-03-13 11:32 | Progress Notes ---
DATE: 03/13/2021 NEPHROLOGY PROGRESS NOTE SUBJECTIVE: Overnight, no new issues. She feels absolutely normal and desperate to go home today. OBJECTIVE: VITAL SIGNS: Blood pressure 143/74, pulse rate 72, temperature 36.9, 98% on room air. HEENT: Mucous membranes moist. NECK: Supple. No jugular venous distention. CHEST: Bilateral clear to auscultation. CARDIOVASCULAR: S1, S2 regular. ABDOMEN: Soft, nontender. EXTREMITIES: Shows no edema. LABORATORY TESTS: From this morning shows normal calcium now. Creatinine also improved a little bit and is down to 3.95, BUN is 49. Hemoglobin is up to 10.2 now. ASSESSMENT AND PLAN: 1. A 71-year-old female with baseline chronic kidney disease stage IV with solitary kidney, admitted because of abnormal labs showing worsening renal function as well as hypercalcemia and worsening anemia. At this point, renal function seems to have got better slightly. After blood transfusion, hemoglobin has improved and is now 10+. She will probably benefit from Procrit like medication as an outpatient. However, for the time being paraprotein workup is pending. 2. Hypercalcemia that seems to have normalized and again paraprotein workup has been sent and is pending and will be followed up as an outpatient. 3. Acute renal failure on chronic kidney disease IV. It is hard to tell whether she has really progressed to chronic kidney disease stage V or not. In any case, she is pretty close and she follows very closely with Dr. Ale Izaguirre and actually has an appointment to see her in few days. She will keep that appointment. The patient is desperate to go home today and it is reasonable to send her home once she is seen by Dr. Medina.
[2021-03-13 12:30] LABS: Creatinine Ur 34 mg/dL (20-275); Protein, Urine Random 59 mg/dL (5-24); Ur Protein/Creat Ratio mg/g 1735 mg/g creat (21-161); Urine Abnormal Protein Band 1 3 mg/dL (NONE DETECTED); Urine Abnormal Protein Band 2 DNR mg/dL (NONE DETECTED); Urine Abnormal Protein Band 3 DNR mg/dL (NONE DETECTED); Urine Protein/Creatinine Ratio 1.735 (0.021-0.161)
[2021-03-13 12:30] LABS: Abnormal Protein Band 1 DNR mg/24 h (NONE DETECTED); Abnormal Protein Band 2 DNR mg/24 h (NONE DETECTED); Abnormal Protein Band 3 DNR mg/24 h (NONE DETECTED); Creatinine, 24 hr Urine 0.92 g/24 h (0.50-2.15); Protein, Urine 24 Hour 1365 mg/24 h (<150); Ur Protein/Creatinine Rat mg/g 1477 mg/g creat (< OR = 114); Urine Protein/Creatinine Ratio 1.477 (< OR = 0.114)
[2021-03-13 13:41] LABS: Albumin 3.2 g/dL (3.8-4.8); Alpha 1 Globulin 0.4 g/dL (0.2-0.3); Alpha 2 Globulin 0.9 g/dL (0.5-0.9); Beta-1-Globulin 0.4 g/dL (0.4-0.6); Beta-2-Globulin 0.3 g/dL (0.2-0.5); Beta-2-Microglobulin 10.88 mg/L (< OR = 2.51); Free Kappa/Lambda Ratio 1.19 (0.26-1.65); Free Lambda 64.1 mg/L (5.7-26.3); Gamma Globulin 0.8 g/dL (0.8-1.7); Monoclonal Protein Band 1 DNR g/dL (NONE DETECTED); Monoclonal Protein Band 2 DNR g/dL (NONE DETECTED); Monoclonal Protein Band 3 DNR g/dL (NONE DETECTED); Total Protein 5.9 g/dL (6.1-8.1)
--- NOTE | 2021-03-13 14:15 | Discharge Summary ---
Date of Service March 13, 2021 Admission HPI Per Admitting Provider HISTORY OF PRESENT ILLNESS: This is a 71-year-old female with past medical history significant for type 2 diabetes, microalbuminuria diabetic nephropathy type 2, hyperlipidemia, hyperuricemia, high triglycerides, chronic CAD, history of chronic kidney disease stage IV, patent foramen ovale, hypertension, heart murmur, GERD, history of peripheral sensory neuropathy, anemia of chronic kidney disease, history of MRSA infection, history of smoking in the past, history of polypharmacy, who lives with her . Was sent to the hospital because of abnormal labs. The patient did not follow up for one year. Her labs were done today, it showed creatinine of 4.3, calcium of 11.6, hemoglobin of 7.3. Hemoglobin was 12.7 in November of 2019. Creatinine was 1.8 in April of 2020 and calcium was 9.4 in April 2020, so she was sent to the hospital. The patient is currently resting comfortably and hemodynamically stable, saturating fine. Denies any headache. She felt dizzy last month, but that has resolved. No blurred visions. No earache, no runny nose. She has a chronic runny nose, no sore throat. She had a cough a couple of days ago, but that got resolved. She thinks this is from her Moderna vaccine second dose which she received on 02/18/2021 as per the patient. Currently no cough, no fever, no chills. She gets shortness of breath on exertion. She had chest pain also a few days ago, thought to be from her vaccine, but resolved now. No nausea, no vomiting, no diarrhea, no constipation. She says stools are always black because of the iron tablets. Normal micturition. No blood in the stools. No abdominal pain. Her right lower extremity is always swollen. No erythema seen. . She has neuropathy and sometimes she has to use cane for ambulating. Appetite is good. No dysphagia. The patient states she was started on Ozempic for diabetes 1 year ago and she is tolerating okay. Sugars are running okay at home. Blood pressure is running okay at home as per the patient.Denies any intake of nsaid's Admission Exam Per Admitting Provider PHYSICAL EXAMINATION: GENERAL: The patient is of moderate build, not in acute distress. VITAL SIGNS: Temperature 36.5, pulse 87, respiratory rate 12, blood pressure 154/74, oxygen 100% on room air. HEENT: Pupils equal, round, reactive to light. Oral mucosa moist. NECK: No JVD, no neck masses. CARDIOVASCULAR: S1, S2 heard, regular rate and rhythm, no murmur, no gallop. RESPIRATORY SYSTEM: Normal AP diameter. No accessory muscle use. No wheezing, no crackles. ABDOMEN: Soft, bowel sounds present, nontender. No distention. CENTRAL NERVOUS SYSTEM: Cranial nerves II-XII grossly intact, nonfocal. EXTREMITIES: Edema present in the right lower extremity. No erythema seen. Principal Diagnosis Acute on chronic renal failure Hypercalcemia Elevated troponin Anemia Discharge Exam CONSTITUTIONAL: WNWD, vitals as above, generally well-appearing EYES: normal conjunctivae, no scleral icterus ENT: external ear and nose normal, MMM RESPIRATORY: clear to auscultation bilaterally, no crackles, rales or wheezes, normal respiratory effort CARDIOVASCULAR: regular rate and rhythm, S1 and 2 heard without murmurs, gallops or rubs, no JVD, no peripheral edema MUSCULOSKELETAL: strength 5/5 throughout, head is normocephalic and atraumatic SKIN: warm and dry NEUROLOGIC: CN 2-12 grossly intact, no sensory deficit, normal cognition, normal speech, no gross focal deficits. PSYCHIATRIC: alert cooperative and oriented to person, place and time. Discharge Data Allergies Allergy/AdvReac Type Severity Reaction Status Date / Time amoxicillin Allergy Severe ANAPHYLAXIS Verified 03/08/21 20:00 methimazole Allergy Severe Chest Pain Verified 03/08/21 20:00 vancomycin Allergy Severe TOAN Verified 03/08/21 20:00 SYNDROME lisinopril Allergy Mild Cough Verified 03/08/21 20:00 NSAIDS (Non-Steroidal AdvReac Unknown NOT TO Verified 03/08/21 20:00 Anti-Inflamma TAKE BECAUSE OF REYNAUDS verapamil AdvReac Unknown Unknown Verified 03/08/21 20:00 Consultations 03/08/21 19:10 ED Decision to Admit Stat 03/09/21 08:00 Consult Nephrology Routine 03/10/21 09:02 Consult Cardiology Routine 03/12/21 15:42 Consult Vascular Surgery Routine Ordered Studies Laboratory Results WBC 10.87 K/uL (4.8-10.8) H 03/13/21 06:33 RBC 3.67 M/uL (4.2-5.4) L 03/13/21 06:33 Hgb 10.2 g/dL (12.0-16.0) L 03/13/21 06:33 Hct 31.4 % (37-47) L 03/13/21 06:33 MCV 85.6 fL (80-100) 03/13/21 06:33 MCH 27.8 pg (25-34) 03/13/21 06:33 MCHC 32.5 g/dL (32-36) 03/13/21 06:33 RDW Std Deviation 52.4 fL (36.4-46.3) H 03/13/21 06:33 RDW Coeff of Fanta 17.1 % (11.5-14.5) H 03/13/21 06:33 Plt Count 278 K/uL (130-400) 03/13/21 06:33 MPV 8.4 fL (7.4-10.4) 03/13/21 06:33 Immature Gran % (Auto) 0.4 % 03/12/21 06:09 Neut % (Auto) 65.1 % 03/12/21 06:09 Lymph % (Auto) 13.1 % 03/12/21 06:09 [place] % (Auto) 14.5 % 03/12/21 06:09 Eos % (Auto) 6.8 % 03/12/21 06:09 Baso % (Auto) 0.1 % 03/12/21 06:09 Reticulocyte % (Auto) 3.7 % (0.5-2.0) H 03/10/21 05:29 Neut # (Auto) 5.96 K/uL (1.4-6.5) 03/12/21 06:09 Lymph # (Auto) 1.20 K/uL (1.2-3.4) 03/12/21 06:09 [place] # (Auto) 1.33 K/uL (0.11-0.59) H 03/12/21 06:09 Eos # (Auto) 0.62 K/uL (0-0.5) H 03/12/21 06:09 Baso # (Auto) 0.01 K/uL (0-0.2) 03/12/21 06:09 Reticulocyte # 0.10 10^6/uL (0.02-0.10) 03/10/21 05:29 Immature Gran # (Auto) 0.04 K/uL (0.00-0.02) H 03/12/21 06:09 RBC Morphology Unremarkable 03/11/21 05:29 Polychromasia 1+ 03/10/21 05:29 Anisocytosis Present 03/10/21 05:29 Peripher Smr Path Cons 03/09/21 05:23 Sodium 141 mmol/L (136-145) 03/13/21 06:33 Potassium 3.7 mmol/L (3.5-5.1) 03/13/21 06:33 Chloride 111 mmol/L (98-107) H 03/13/21 06:33 Carbon Dioxide 24 mmol/L (21-32) 03/13/21 06:33 Anion Gap 6.0 (3-11) 03/13/21 06:33 BUN 49 mg/dl (7-18) H 03/13/21 06:33 Creatinine 3.95 mg/dl (0.6-1.2) H 03/13/21 06:33 Est Cr Clr Drug Dosing 13.3 ml/min 03/13/21 06:33 Est GFR ( Amer) 12.3 03/13/21 06:33 Est GFR (Non-Af Amer) 10.6 03/13/21 06:33 BUN/Creatinine Ratio 12.5 (10-20) 03/13/21 06:33 Glucose 108 mg/dl (70-99) H 03/13/21 06:33 POC Glucose 147 mg/dl (70-99) H 03/13/21 11:36 Estimat Average Glucose 146 mg/dl 03/09/21 05:23 Hemoglobin A1c 6.7 % (4.5-5.6) H 03/09/21 05:23 Calcium 9.5 mg/dl (8.5-10.1) 03/13/21 06:33 Ionized Calcium 1.25 mmol/L (1.12-1.32) 03/10/21 08:03 Magnesium 2.9 mg/dl (1.8-2.4) H 03/09/21 05:23 Iron 23 mcg/dl (35-150) L 03/09/21 05:23 TIBC 298 mcg/dl (250-450) 03/09/21 05:23 Transferrin 237 mg/dl (200-360) 03/09/21 05:23 Ferritin 27.4 ng/ml (8-388) 03/09/21 05:23 Total Bilirubin 0.4 mg/dl (0.2-1) 03/13/21 06:33 Direct Bilirubin < 0.1 mg/dl (0-0.2) 03/09/21 05:23 AST 25 U/L (15-37) 03/13/21 06:33 ALT 22 U/L (12-78) 03/13/21 06:33 Alkaline Phosphatase 86 U/L (45-117) 03/13/21 06:33 Troponin I 24.000 ng/ml (0-0.045) H* 03/10/21 19:59 Total Protein 6.2 gm/dl (6.4-8.2) L 03/13/21 06:33 Total Protein (PEP) 5.9 g/dL (6.1-8.1) L 03/10/21 05:29 Albumin 2.7 gm/dl (3.4-5.0) L 03/13/21 06:33 Albumin (PEP) 3.2 g/dL (3.8-4.8) L 03/10/21 05:29 Globulin 3.5 gm/dl (2.5-4.0) 03/13/21 06:33 Albumin/Globulin Ratio 0.8 (0.9-2) L 03/13/21 06:33 Hfvpy-0-Kwlqjjnek 0.4 g/dL (0.2-0.3) H 03/10/21 05:29 Lvnaw-1-Lbiczpjit 0.9 g/dL (0.5-0.9) 03/10/21 05:29 Xrdx-4-Nzmqaope 0.4 g/dL (0.4-0.6) 03/10/21 05:29 Vvkv-3-Nzfgwpkr 0.3 g/dL (0.2-0.5) 03/10/21 05:29 Rban-8-Kttxhdhabrrig 10.88 mg/L (< OR = 2.51) H 03/10/21 05:29 Gamma Globulins 0.8 g/dL (0.8-1.7) 03/10/21 05:29 Monoclonal Peak 3 DNR g/dL (NONE DETECTED) 03/10/21 05:29 Ser Monoclonl Protein DNR g/dL (NONE DETECTED) 03/10/21 05: Ser Monoclonal Prot 2 DNR g/dL (NONE DETECTED) 03/10/21 05:29 PEP Interpretation SEE NOTE 03/10/21 05: Vitamin B12 947 pg/ml (193-986) 03/09/21 05: 25-OH Vitamin D Total 15.7 ng/ml (30-100) L 03/09/21: Folate > 20.00 ng/ml (>5.38) 03/09/21: TSH 1.100 uIu/ml (0.300-4.500) 03/09/21: PTH Intact 22.9 pg/ml (18.4-80.1) 03/09/21: Urine Color Yellow 03/11/21 20:00 Urine Appearance Clear (Clear) 03/11/21 20:00 Urine pH 7.0 (4.5-7.5) 03/11/21 20:00 Ur Specific [place] 1.009 (1.000-1.030) 03/11/21 20:00 Urine Protein Trace (Negative) H 03/11/21 20:00 Urine Glucose (UA) Negative (Negative) 03/11/21 20:00 Urine Ketones Negative (Negative) 03/11/21 20:00 Urine Blood 1+ (Negative) H 03/11/21 20:00 Urine Nitrite Negative (Negative) 03/11/21 20:00 Urine Bilirubin Negative (Negative) 03/11/21 20:00 Urine Urobilinogen Negative (Negative) 03/11/21 20:00 Ur Leukocyte Esterase Negative (Negative) 03/11/21 20:00 Urine WBC (Auto) 1-5 /hpf (0-5) 03/11/21 20:00 Urine RBC (Auto) 0-4 /hpf (0-4) 03/11/21 20:00 U Hyaline Cast (Auto) 0 /lpf (0-5) 03/11/21 20:00 U Epithel Cells (Auto) 10-20 /lpf (0-5) H 03/11/21 20:00 Urine Bacteria (Auto) Negative (Negative) 03/11/21 20:00 Ur Random Creatinine < 13.0 mg/dl 05/03/21 20:00 U Random Total Protein 27.5 mg/dl (0-11.9) H 03/11/21 20:00 Ur Creatinine mg/dL 34 mg/dL (20-275) 03/09/21 20:41 Ur Creatinine 24 Hour 0.92 g/24 h (0.50-2.15) 03/10/21 20:40 Ur Total Protein 24 Hr 1365 mg/24 h (<150) H 03/10/21 20:40 Protein/Creatinin Ratio TNP 03/11/21 20:00 Protein/Creat Ratio 24h 1.477 (< OR = 0.114) H 03/10/21 20:40 Urine Albumin (%) 36 % 03/10/21 20:40 U Qvlgf-0-Sgkuknss (%) 6 % 03/10/21 20:40 U Lpivp-2-Tigqopyy (%) 22 % 03/10/21 20:40 U Beta Globulin (%) 20 % 03/10/21 20:40 U Gamma Globulin (%) 16 % 03/10/21 20:40 U Abnormal Prot Band 1 DNR mg/24 h (NONE DETECTED) 03/10/21 20:40 U Abnormal Prot Band 2 DNR mg/24 h (NONE DETECTED) 03/10/21 20:40 U Abnormal Prot Band 3 DNR mg/24 h (NONE DETECTED) 03/10/21 20:40 Urine PEP Interpret SEE NOTE 03/10/21 20:40 Stool Occult Bld Scrn Negative (Negative) 03/11/21 09:20 Serum Immunofixation SEE NOTE 03/10/21 05:29 Free Lapel LC, Quant 76.0 mg/L (3.3-19.4) H 03/10/21 05:29 Free Lambda LC, Quant 64.1 mg/L (5.7-26.3) H 03/10/21 05:29 Free Lapel/Lambda Ratio 1.19 (0.26-1.65) 03/10/21 05:29 COVID-19 Eval Order [facility]Rsv at [facility] 03/08/21 20:55 SARS-CoV-2 (PCR) NEGATIVE (Negative) 03/08/21 20:55 Influenza Type A (PCR) Negative (Neg) 03/08/21 20:55 Influenza Type B (PCR) Negative (Neg) 03/08/21 20:55 RSV (RT-PCR) Negative (Neg) 03/08/21 20:55 Blood Type O Positive 03/11/21 05:29 Antibody Screen NEGATIVE 03/11/21 05:29 Crossmatch See Detail 03/11/21 05:29 Impressions Chest X-Ray 03/09/21 06:25 XR chest 1V portable HISTORY: 71 years-old Female congestion? Acute cough with congestion COMPARISON: Chest radiograph 09/07/2013 TECHNIQUE: Portable AP view the chest FINDINGS: Cardiac silhouette is enlarged. No pneumothorax, pleural effusion, airspace consolidation or overt pulmonary edema. Degenerative changes of the shoulders and spine. IMPRESSION: No acute process. ACT 112: Negative or not required by law. The above report was generated using voice recognition software. It may contain grammatical, syntax or spelling errors. Electronically signed by: Aditya Mcfarland M.D. 03/09/2021 8:58 AM Renal Ultrasound 03/09/21 08:02 EXAMINATION: RENAL ULTRASOUND CLINICAL HISTORY: Acute renal insufficiency COMPARISON STUDY: FINDINGS: The right kidney was not visualized. The left kidney measures 10.9 cm in length. The left kidney is mildly echogenic and lobulated. Several renal cysts are suspected, the largest of which measures 7 mm. There is a 4 mm lower pole echogenic left renal focus. This could present a calculus or vascular reflector. The left ureteral jet was visualized. IMPRESSION : 1. Nonvisualization of the right kidney 2. No evidence of left-sided hydronephrosis 3. Slight increase in left renal cortical echogenicity suggesting medical renal disease ACT 112: Negative or not required by law. Electronically signed by: Julio Cesar Lucas M.D. 03/09/2021 9:34 AM Hospital Course (1) Acute renal failure: (2) Hypercalcemia: (3) DM (diabetes mellitus) type II controlled with renal manifestation: (4) HTN (hypertension): (5) CKD (chronic kidney disease) stage 3, GFR 30-59 ml/min: The patient is a 71-year-old female with only one kidney who presented to the ER after abnormal labs revealed evidence of kidney failure. She felt well other than some off-and-on lightheadedness. Creatinine was 4.3 with BUN of 58. Baseline creatinine is around 1.8. H&H on admission was 7.7/25. Glucose was 266. Her calcium was 12.5 on admission. She was given a liter of normal saline and was admitted to the hospitalist service. Nephrology was consulted and recommended intravenous iron which was transfused 2 doses over 2 days while hospitalized. Renal function continued to stabilize and paraprotein workup was drawn and pending at time of discharge. Close follow-up with Dr. Izaguirre from [facility] is in place early next week. At time of discharge she was feeling well and was desperate to go home. H/H was 10.2/31.4, Ca was 9.5. Also of note, cardiology was consulted secondary to elevated blood pressure and elevated troponin. An echocardiogram revealed moderate concentric left ventricular hypertrophy with an ejection fraction 55 to 60%. Right ventricular systolic function was normal. Aortic valve sclerosis was seen that was mild without significant aortic valve stenosis and there was mild mitral regurgitation. Her troponin jaun to 20 and she had chest pain. Her anemia was thought to be causing angina and she was transfused 3 units of blood during this hospital stay. Ultimately the chest pain was felt to be angina related to profound anemia. Her troponin elevation was felt likely multifactorial included stress related to her profound anemia as well as renal insufficiency. Anticoagulation was not recommended 2/2 positive hemoccult in the stool, which will need to be worked up as outpatient. Further cardiac testing was not indicated at this time. Total Time Total Time Spent Total Time Spent (In Minutes): 60 Total Time Includes: Examination of the Patient, Discharge Planning, Medication Reconciliation and Communication With Other Providers Discharge Plan Discharge Items Patient Disposition: Home - Self-Care Reason For Visit: ABNORMAL LABS Discharge Diagnosis: Acute on chronic renal failure Hypercalcemia Elevated troponin Anemia Condition on Discharge: Good Activity: Resume your previous activity Non-emergency contact: Primary Care Provider Call non-emergency contact if: you have any medication questions, your symptoms worsen, your pain is not controlled, your pain is worsening, your pain is unusual for you, your pain is concerning for you and you have a fever Follow-up/Referrals: Tara Orta MD [Primary Care Provider] - (Date & Time 03/19/2021 12:00 PM Provider Tara Fragoso MD Department Family Medicine [facility] ) Diet: Carb Consistent or DM2, Dialysis Renal and Heart Healthy Addtl Attending Provider Instructions: Please take all medications as instructed on discharge list below. 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 Please follow-up with your primary care provider within one week of discharge to ensure you are doing well overall with respect to your current renal function and to help you adjust your medication regimen for diabetes. There are also many labs that are pending at the time you are leaving the hospital, The results may be discussed with you at this time. You were found to have occult blood in your stool, which may also have been a false positive result 2/2 iron supplements. Please discuss next steps with your primary care physician on follow-up. It was a pleasure taking care of you! Please call if you have any questions or problems. You can reach a [facility] hospitalist on duty at [facility] 24 hours a day by calling [phone]. Take care of yourself. Sandra Iqbal, DO [facility] P[facility] Studies at Discharge: Yes Studies:: paraprotein workup Stand-Alone Forms: My [facility] Medications and DC Order Prescriptions: Continued aspirin [Aspir-81] 81 mg Tablet,Delayed Release (Dr/Ec) 81 mg PO QAM RF: 0 vitamin B complex-folic acid [B Complex 1 (with folic acid)] 0.4 mg Tablet 1 tab PO QPM RF: 0 furosemide 40 mg Tablet 40 mg PO QAM RF: 0 isosorbide mononitrate 30 mg Tablet Extended Release 24 Hr 30 mg PO QPM RF: 0 amlodipine 5 mg Tablet 5 mg PO QAM RF: 0 insulin aspart U-100 [Novolog U-100 Insulin aspart] 100 unit/mL Solution 0 unit SUBCUT TID RF: 0 magnesium 250 mg Tablet 250 mg PO QAM RF: 0 Tresiba U-100 Insulin 100 unit/mL Solution 10 unit SUBCUT HS RF: 0 acetaminophen [Tylenol Extra Strength] 500 mg Tablet 1,000 mg PO Q6H PRN (Reason: Pain) RF: 0 ferrous sulfate 325 mg (65 mg iron) Tablet 325 mg PO QAM RF: 0 nitroglycerin [Nitrostat] 0.4 mg Tablet, Sublingual 4 mg sublingual UD PRN (Reason: Pain) RF: 0 allopurinol 100 mg Tablet 100 mg PO QAM RF: 0 famotidine [Pepcid AC] 20 mg Tablet 20 mg PO DAILY PRN (Reason: Acid Reflux) RF: 0 Crestor 40 mg 40 mg PO DAILY RF: 0 Katty-Joya 0.8 mg Tablet 1 tab PO HS RF: 0 Discontinued telmisartan 20 mg Tablet 40 mg PO QAM RF: 0 Ozempic 0.25 mg or 0.5 mg(2 mg/1.5 mL) Pen Injector 0.5 mg SUBCUT WK RF: 0 Discharge Orders: Discharge Order (Routine); Ordered 03/13/21 Ordered By: Sandra Merlos/Other Patient Handouts: Managing Type 2 Diabetes, Managing Diabetes: The A1C Test Admission Data Admit Date/Time: 03/08/21 20:37 Attending Provider: Sandra Iqbal Admit Provider: Hernan Aleman Primary Care Provider: Tara Orta Other Providers: Hernan Aleman ; Ale Izaguirre ; Tom Ma ; Jeff Medina
--- NOTE | 2021-03-13 14:48 | Consultation ---
Date of Consultation March 13, 2021 Assessment & Plan (1) Acute on chronic renal failure: Pt with acute on chronic renal failure and will likely need dialysis in near future and would like to do PD. Recommend pt undergo training/eval for PD with outpt dialysis unit and will reeval pt in 1-2 weeks to schedule procedure if pt still wishes to proceed. Pt agreeable to this plan. Acute renal failure type: unspecified Chronic kidney disease stage: stage 4 (severe) Qualified Code(s): N17.9 - Acute kidney failure, unspecified; N18.4 - Chronic kidney disease, stage 4 (severe) History of Present Illness Reason for Consultation: ESRD Eval for possible PD catheter insertion Attending Physician: Sandra Iqbal, History of Present Illness 71 yo f with hx of CKD, renal atrophy, CAD, DMII, HTN, admitted with acute on chronic renal failure, seen in consultation today to discuss CAPD catheter insertion. Pt is aware she will need to start dialysis soon, and would like to start PD when she does. Pt denies any real complaints presently aside from fatigue. Denies ELLIOTT, fever, chest pain, SOB, abd pain, N/V, rest pain, claudication, other complaints. Allergies Allergy/AdvReac Type Severity Reaction Status Date / Time amoxicillin Allergy Severe ANAPHYLAXIS Verified 03/08/21 20:00 methimazole Allergy Severe Chest Pain Verified 03/08/21 20:00 vancomycin Allergy Severe TOAN Verified 03/08/21 20:00 SYNDROME lisinopril Allergy Mild Cough Verified 03/08/21 20:00 NSAIDS (Non-Steroidal AdvReac Unknown NOT TO Verified 03/08/21 20:00 Anti-Inflamma TAKE BECAUSE OF REYNAUDS verapamil AdvReac Unknown Unknown Verified 03/08/21 20:00 Home Medications Medication Instructions Recorded Confirmed Type Tresiba U-100 Insulin 10 unit SUBCUT HS 10/04/19 03/08/21 History acetaminophen [Tylenol Extra 1,000 mg PO Q6H PRN 10/04/19 03/08/21 History Strength] amlodipine 5 mg PO QAM 10/04/19 03/08/21 History aspirin [Aspir-81] 81 mg PO QAM 10/04/19 03/08/21 History ferrous sulfate 325 mg PO QAM 10/04/19 03/08/21 History furosemide 40 mg PO QAM 10/04/19 03/08/21 History insulin aspart U-100 [Novolog 0 unit SUBCUT TID 10/04/19 03/08/21 History U-100 Insulin aspart] isosorbide mononitrate 30 mg PO QPM 10/04/19 03/08/21 History magnesium 250 mg PO QAM 10/04/19 03/08/21 History nitroglycerin [Nitrostat] 4 mg SUBLINGUAL UD PRN 10/04/19 03/08/21 History vitamin B complex-folic acid [B 1 tab PO QPM 10/04/19 03/08/21 History Complex 1 (with folic acid)] allopurinol 100 mg PO QAM 01/04/20 03/08/21 History B complex-vitamin C-folic acid 1 tab PO HS 03/08/21 03/08/21 History [Katty-Joya] Crestor 40 mg PO DAILY 03/08/21 03/08/21 History famotidine [Pepcid AC] 20 mg PO DAILY PRN 03/08/21 03/08/21 History Patient History Medical History Atrophy of right kidney 2009 [facility] u/s w/ R kidney 5.5 x 4 cm Chronic kidney disease STAGE 4-F/U DR GARZA Diabetes mellitus, type 2 GERD (gastroesophageal reflux disease) Gout Hyperlipidemia Hypertension Neuropathy HANDS AND FEET Renal cyst, acquired, left Surgical History H/O foot surgery RIGHT H/O foot surgery RIGHT GREAT TOE AMPUTATION History of bilateral cataract extraction History of bilateral tubal ligation History of colonoscopy History of tonsillectomy Family History Father Family history of diabetes mellitus Sister Family history of diabetes mellitus Brother Family history of diabetes mellitus Other No family history of adverse response to anesthesia Social History Smoking Status: Former smoker Second Hand Exposure: Yes (father/ smoked); Hx Alcohol Use: Yes Alcohol type: wine Hx Substance Use: No Preferred Language: Chinese Communication Ability: Effective Snow Fence Erector Required: No Beliefs That Will Affect Care: None marital status: Current Living Situation: Spouse Current Living Situation Comment: Lives at home with Feels Safe at Home: Yes Safety Concerns: Feels Safe At This Time Assistive Devices: None Assistive Devices Comment: Intermittent use of cane r/t neuropathy Review of Systems Review of Systems: All systems reviewed & are unremarkable except as noted in HPI & below Physical Exam Constitutional: WD/WN, vitals as above + obese, cooperative and comfortable; not in distress Eyes: PERRL, conjunctivae normal, anicteric sclerae ENMT: Ears: no hearing impairment Neck: trachea midline Respiratory: normal respiratory effort, lungs clear to auscultation Auscultation: + diminished lung sounds Cardiovascular: Rate/Rhythm: regular rate and regular rhythm Vessels: posterior tibial pulses present, dorsalis pedis pulses present, brachial pulses present and radial pulses present; + abnormal peripheral pulses Extremities: normal capillary refill Gastrointestinal (Abdomen): normal bowel sounds, soft, nontender, no hepatosplenomegaly (small pelvic surgical scar noted. moderate diastasis noted proximally) Musculoskeletal: no cyanosis or clubbing, extremities motor strength 5/5 Skin: no rashes, warm and dry Neurologic: moves all extremities and awake; no focal motor deficits and not confused Psychiatric: A+Ox3, euthymic affect Results & Data ([facility]) Vital Signs (Past 12 Hours) Vital Signs Temp Pulse Resp BP Pulse Ox Pulse Ox 03/13/21 11:39 36.6 C 77 18 171/94 H 98 03/13/21 08:00 98 03/13/21 07:05 36.9 C 72 20 143/74 H 98 03/13/21 03:04 37.2 C 81 17 125/69 94
== END 2021-03-13 15:29 | disposition home or self-care (01) | DRG 683 ==
LOC: ED 17:16 → SUATTDRO 20:37 → 2S 20:37
DX: C90.00 Multiple myeloma not having achieved remission; Z77.22 Contact with and (suspected) exposure to environmental tobacco smoke (acute) (chronic); I67.4 Hypertensive encephalopathy; Z88.8 Allergy status to other drugs, medicaments and biological substances; D50.9 Iron deficiency anemia, unspecified; Z83.3 Family history of diabetes mellitus; E11.42 Type 2 diabetes mellitus with diabetic polyneuropathy; D63.1 Anemia in chronic kidney disease; I24.8 Other forms of acute ischemic heart disease; R94.31 Abnormal electrocardiogram [ECG] [EKG]; N17.9 Acute kidney failure, unspecified; M10.9 Gout, unspecified; Z84.1 Family history of disorders of kidney and ureter; Z88.1 Allergy status to other antibiotic agents; I45.10 Unspecified right bundle-branch block; E83.52 Hypercalcemia; E11.22 Type 2 diabetes mellitus with diabetic chronic kidney disease; Z88.6 Allergy status to analgesic agent; N18.4 Chronic kidney disease, stage 4 (severe); Z79.82 Long term (current) use of aspirin; F29 Unspecified psychosis not due to a substance or known physiological condition; I25.119 Atherosclerotic heart disease of native coronary artery with unspecified angina pectoris; E78.5 Hyperlipidemia, unspecified; Z79.899 Other long term (current) drug therapy; Z79.4 Long term (current) use of insulin; Z88.0 Allergy status to penicillin; I16.1 Hypertensive emergency; E11.65 Type 2 diabetes mellitus with hyperglycemia; E11.21 Type 2 diabetes mellitus with diabetic nephropathy; I44.0 Atrioventricular block, first degree; Z87.891 Personal history of nicotine dependence; Q60.0 Renal agenesis, unilateral; Q21.1 Atrial septal defect; I12.9 Hypertensive chronic kidney disease with stage 1 through stage 4 chronic kidney disease, or unspecified chronic kidney disease

== ENCOUNTER 2021-09-05 06:59 | Inpatient (IN) ==
--- NOTE | 2021-09-04 16:27 | History & Physical Report ---
Date of Service September 04, 2021 Assessment & Plan (1) Exertional angina: (2) Abnormal nuclear stress test: (3) Chronic renal disease, stage V: Plan: Continue medical therapy with aspirin, amlodipine, isosorbide mononitrate, rosuvastatin, ezetimibe, furosemide. She is not on a beta-tova due to pre-existing sinus bradycardia. At this time, given the patient's symptoms, is felt to most prudent course of action would be to proceed with cardiac catheterization. Cardiac catheterization had previously been delayed given her risk of progressive kidney disease necessitating dialysis, however given her recent test results and the development of symptoms suggestive angina, will proceed with outpatient cardiac catheterization. Will plan on having the patient arrive early for hydration, and remained in the hospital for observation of her kidney function and potential need of starting dialysis if indicated. History of Present Illness Chief Complaint: Exertional chest pressure Primary Care Provider: Tara Fragoso MD Viktoria Whitfield is a 71 year old year old female Who had most recently been ass essed in person by the undersigned on 08/15/2021, and via telemedicine on 08/29/2021. At the time of the 08/15/21 visit, the patient described no signs or symptoms of angina. On 08/26/21, however, the patient states that she was riding her stationary bicycle as per her typical routine and felt significantly short of breath with chest tightness. She ceased her exercise, took a dose of sublingual nitroglycerin and her symptoms resolved. She has not had any additional symptoms or additional nitroglycerin use since, but she notes that she has been avoiding the stationary bicycle. As described in my recent progress note, she has a history of stage V chronic kidney disease with recent eGFR levels between 15-17 mL per minute per meter squared.. She is followed by Dr. Izaguirre of [facility]. Herhistory [facility] to 03[facility]13[facility]2021 with fatigue, severe anemia, hemoglobin down to 7.3, hypercalcemia, and acute worsening of her chronic kidney disease. At that time, she wasobserved to have a non ST segment elevation myocardial infarction(without emily symptoms of angina at that time), with peak troponin I of 20 ngper milliliter that was felt to be due to myocardial strain in setting of profound anemia and metabolic derangements. An echocardiogram revealed moderate concentric left ventricular hypertrophy, low normal LV EF, no regional wall motion abnormalities. She had undergone transfusion of either 2 or 3 units of packed red blood cells and IV iron was also administered.hemoglobin subsequently improved to 10 grams per deciliter, and most recently as of 07/17/2021, 11 grams/deciliter. EGD performed 04/19/2021 yielded no source of bleeding. A nuclear stress test had recently been performed as part of a workup for renal transplantation status on 08/12/2021 with findings of LAD territory ischemia. Past Medical History: Stage V CKD DM2 Dyslipidemia with high triglycerides Sinus bradycardia Conduction system as noted on EKG with bifascicular block pattern Allergies Allergy/AdvReac Type Severity Reaction Status Date / Time amoxicillin Allergy Severe ANAPHYLAXIS Verified 04/19/21 12:10 methimazole Allergy Severe Chest Pain Verified 04/19/21 12:10 vancomycin Allergy Severe TOAN Verified 04/19/21 12:10 SYNDROME lisinopril Allergy Mild Cough Verified 04/19/21 12:10 NSAIDS (Non-Steroidal AdvReac Unknown NOT TO Verified 04/19/21 12:10 Anti-Inflamma TAKE BECAUSE OF REYNAUDS verapamil AdvReac Unknown CAN'T Verified 04/19/21 12:10 REMEMBER Home Medications Medication Instructions Recorded Confirmed Type acetaminophen 500 mg tablet 1,000 mg PO Q6H PRN 10/04/19 04/19/21 History (Tylenol Extra Strength) amlodipine 5 mg tablet 5 mg PO HS 10/04/19 04/19/21 History ferrous sulfate 325 mg (65 mg 325 mg PO QAM 10/04/19 04/19/21 History iron) tablet furosemide 40 mg tablet 40 mg PO QAM 10/04/19 04/19/21 History insulin aspart U-100 100 unit/mL 9 - 12 unit SUBCUT TID 10/04/19 04/19/21 History subcutaneous solution (Novolog U-100 Insulin aspart) insulin degludec 100 unit/mL 10 unit SUBCUT HS 10/04/19 04/19/21 History subcutaneous solution (Tresiba U-100 Insulin) isosorbide mononitrate 30 mg 30 mg PO QAM 10/04/19 04/19/21 History tablet,extended release 24 hr magnesium 250 mg tablet 250 mg PO QAM 10/04/19 04/19/21 History nitroglycerin 0.4 mg sublingual 0.4 mg SUBLINGUAL UD PRN 10/04/19 04/19/21 History tablet (Nitrostat) vitamin B complex-folic acid 0.4 1 tab PO QPM 10/04/19 04/19/21 History mg tablet (B Complex 1 (with folic acid)) allopurinol 100 mg tablet 100 mg PO QAM 01/04/20 04/19/21 History famotidine 20 mg tablet (Pepcid AC) 20 mg PO DAILY PRN 03/08/21 04/19/21 History vitamin B complex-vitamin C-folic 1 tab PO HS 03/08/21 04/19/21 History acid 0.8 mg tablet (Katty-Joya) aspirin 81 mg tablet,delayed 81 mg PO QAM 03/29/21 04/19/21 History release oxymetazoline 0.05 % nasal spray 1 spray INTRANASAL Q12H PRN 03/29/21 04/19/21 History rosuvastatin 40 mg tablet 40 mg PO QAM 03/29/21 04/19/21 History Past Med/Surg History Medical History Anemia RECENT BLOOD TRANSFUSION Atrophy of right kidney 2009 [facility] u/s w/ R kidney 5.5 x 4 cm CAD (coronary artery disease) Cardiac murmur Mild MR, mild AV sclerosis on 2020 echo. On 2018 echo, LVOT gradient noted due to isolated basal septal hypertophy. 2020 echo notes concentric moderate LVH, no LVOT gradient. Chronic kidney disease STAGE 4-F/U DR GARZA Diabetes mellitus, type 2 GERD (gastroesophageal reflux disease) HLD (hyperlipidemia) HTN (hypertension) Hx of gout Hypercalcemia Critically elevated on 03/08/21 @ 12.5 mg/dl. Normalized on 03/13/21 labs Neuropathy HANDS AND FEET Osteomyelitis of foot Renal cyst, acquired, left Surgical History H/O foot surgery RIGHT History of amputation RT FOOT GREAT TOE History of bilateral cataract extraction History of bilateral tubal ligation History of colonoscopy History of tonsillectomy Family History Father Family history of diabetes mellitus Sister Family history of diabetes mellitus Brother Family history of diabetes mellitus Grandmother (Paternal) Family history of diabetes mellitus Other No family history of adverse response to anesthesia Social History Smoking Status: Former smoker Second Hand Exposure: No; Hx Alcohol Use: Yes Alcohol type: wine Preferred Language: Kyrgyz Communication Ability: Effective 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 Results & Data Results & Data ([facility]) Laboratory Results COVID-19 screen performed 09/02/2021 was negative. Chemistry panel performed 09/02/2021: Sodium 141, potassium 4.1, chloride 101, CO2 25, BUN 54, creatinine 2.8, EGFR 16, calcium 11.2, glucose 191 Coagulation panel within normal limits Hemoglobin 12.5, stable compared to 11.9 in early August WBC count 7.85, platelet count 281. Liver function tests within normal limits. PA and lateral chest x-ray performed within the [facility] [facility] on 09/02/2021, preliminary interpretation by Dr. Rizzo: no interstitial edema or pleural effusions, formal radiology report pending EKG performed 08/15/2021 and reviewed independently revealed sinus bradycardia at 56 beats per minute with premature atrial contractions, bifascicular block pattern, compared to previous, the bifascicular block pattern is chronic. Diagnostic Findings Summary of transthoracic echocardiogram performed at [facility] 03/10/2021: Moderate concentric left ventricular hypertrophy is present with no regional wall motion abnormalities, LVEF normal, 55 to 60%, mild mitral regurgitation is present. Mild aortic valve sclerosis without stenosis. Summary of nuclear stress test performed 08/12/2021: Abnormal combined low intensity exercise/Lexiscan myocardial perfusion imaging study revealing a moderate sized reversible anteroseptal and apical perfusion defect consistent with ischemia in the left anterior descending coronary territory. Gated SPECT imaging reveals septal and apical hypokinesis The left ventricular ejection fraction was calculated to be 61 %.
--- NOTE | 2021-09-05 07:58 | Pre Anesthesia Assessment ---
Date of Service September 05, 2021 Pre Sedation Assessment Vital Signs Temp Pulse Resp BP Pulse Ox 09/05/21 07:16 36.7 C 69 18 171/75 H 95 Pre-Sedation Airway Assessment Smoking Status: Never smoker Hx Sleep Apnea: No Short, Thick Neck: No Thyromental Distance: > or= 3.5 Finger Breadths Oral Cavity: + WNL Mallampati Class: III ASA: ASA3 NPO Status Date of Last Intake of Fluids: 09/04/21 Date of Last Intake of Solid Food: 09/04/21 Notes The planned sedation has been discussed with the patient. Informed Consent was obtained. I have identified the patient, determined the appropriateness of sedation and have assessed the patient immediately prior to the procedure. All medicine(s) and interventions are by my order.
--- NOTE | 2021-09-05 07:58 | History & Physical Bridge Note ---
Date of Service September 05, 2021 History & Physical Bridge Note I have examined the patient, reviewed the History & Physical and in the interval since the performance of the History & Physical I have noted the following changes of clinical significance: no changes noted
[2021-09-05] MEDS ORDERED: HEPARIN (PORCINE) 1000 UNIT/ML 10 ML (CATH LAB USE ONLY) ONE (08:03)
[2021-09-05] MEDS ORDERED: fentaNYL citrate 100 MCG/2 ML VIAL ONE (08:03)
[2021-09-05] MEDS ORDERED: niCARdipine HCL INJ 2.5 MG/ML 10 ML AMP ONE (08:03)
[2021-09-05] MEDS ORDERED: MIDAZOLAM HCL 1 MG/ML 2ML VIAL ONE (08:04)
[2021-09-05] MEDS ORDERED: NITROGLYCERIN/D5W 100MCG/ML 20ML SYR ONE (08:04)
--- NOTE | 2021-09-05 08:32 | Cardiac Catheterization ---
Cardiac Cath Procedure Full Procedure Date September 05, 2021 Pre-Procedure Diagnosis Pre-Procedure Diagnosis: Angina AUC Score AUC Score: 2 Post-Procedure Diagnosis Post-Procedure Diagnosis: Severe CAD Procedure(s) Performed Procedure(s) Performed: Coronary Angiography Aircraft Seat Upholsterer Yamilet Akins MD Estimated Blood Loss Estimated Blood Loss: None Medication(s) Medication(s): none Summary of Findings signifigant 3vd. HEAD OF SALES PROMOTION mid LAD l-l and r-l ibrahima 90% D1 80% OM1 80%OM2 focal 70% RCA Hemodynamics Rest Ao:: 133/63 Final Ao: 122/54 LV: not done Recommendations Recommendations: CABG Radiation Exposure (mGy) 858mGy Contrast (mls) 25 Procedural Complication(s) none I attest to the content of the Intraoperative Record and any orders documented therein. Any exceptions are noted below. ACC Data: Director Of Market Analysis Cardiac Status Clinical evaluation leading to the procedure CAD Presenation: Unstable angina Anginal Classification: CCS IV Heart Failure: No Cardiogenic Shock within 24 Hours: No Cardiac Arrest within 24 Hours: No Imaging Studies Past 6 Months: Yes Stress Studies Past 6 Months: No Standard Exercise Test: No Stress Echocardiogram: No Stress Testing w/SPECT MPI: No Cardiac CTA: No Coronary Anatomy Dominant: Co-Dominant LAD (% Stenosis): Mid (100%) D1 (% Stenosis): Proximal (90) OM1 (% Stenosis): Proximal (80) OM2 (% Stenosis): Proximal (80) RCA (% Stenosis): Mid (80) Diagnostic Physicians Name: Yamilet Akins MD Closure Device Percutaneous Entry Location: Radial Closure Device: Radial Band Recommendations: CABG
--- NOTE | 2021-09-05 09:21 | Communication Note ---
Date of Service: September 05, 2021 Dr Hutson called me from the catheterization lab control room at the conclusion of the diagnostic cardiac catheterization. I am currently off site, and am located at [facility], however, I am the patient's primary audit tech and I am well acquainted with her history and recent treatment plan. Patient has been found to have multivessel coronary heart disease. Given her history of diabetes and recent exertional angina, Dr. li and I heart both in agreement that the best approach is to arrange hospital hospital transfer for CT surgery consultation. Patient's renal function will need to be monitored, with regards to possible worsening renal function post contrast exposure and need for hemodialysis. I believe it is a foregone conclusion that she will require hemodialysis soon, the question is just when, and I do not think that needs to impact the treatment plan with regards to her best options for revascularization as I anticipate need for dialysis with both contrast exposure with multivessel PCI and with CABG. Nephrology had been optimistic that the patient would be a candidate for renal transplant, and perhaps the best option would be to consider bypass surgery, with future reconsideration of renal transplant candidacy, and with this approach, we can avoid chronic dual anti-platelet therapy. I called and discussed the catheterization results and treatment plan with Dr Carranza was on-call for inpatient clinical cardiology at [facility] and he accepts the patient in transfer pending bed availability. [facility] , telemetry unit , pending bed availability. As long she remains hemodynamically stable without symptoms of resting angina, I think it would be reasonable to transfer her via ACLS ground. Case discussed with Dr Li, Dr Ma who is covering our inpatient cardiology service at [place] today, DEDRICK Wallis of [facility] service at [place] and Dr Carranza of [facility] cardiology. I also updated Dr Izaguirre of nephrology. I discussed the case with the laboratory cureman nursing staff at [facility].
[2021-09-05] MEDS ORDERED: NITROGLYCERIN SL 0.4 MG/TAB TAB SL PRN (09:51)
[2021-09-05] MEDS ORDERED: ACETAMINOPHEN 325 MG TAB PO PRN (09:51)
[2021-09-05 10:20] LABS: Basophils # (auto) 0.02 K/uL (0-0.2); Basophils % (auto) 0.2 %; Eosinophils % (auto) 1.9 %; Hematocrit (blood only) 33.2 % (37-47); Hemoglobin 11.2 g/dL (12.0-16.0); Immature Granulocytes # (auto) 0.03 K/uL (0.00-0.02); Immature Granulocytes % (auto) 0.3 %; Lymphocytes # (auto) 1.32 K/uL (1.2-3.4); Lymphocytes % (auto) 12.4 %; Mean Corpuscular Hemoglobin 29.4 pg (25-34); Mean Corpuscular Hgb Conc 33.7 g/dL (32-36); Mean Corpuscular Volume 87.1 fL (80-100); Mean Platelet Volume 8.9 fL (7.4-10.4); Monocytes # (auto) 0.91 K/uL (0.11-0.59); Monocytes % (auto) 8.6 %; Neutrophils # (auto) 8.13 K/uL (1.4-6.5); Neutrophils % (auto) 76.6 %; Platelet Count 246 K/uL (130-400); RDW Coefficient of Variation 15.2 % (11.5-14.5); RDW Standard Deviation 48.4 fL (36.4-46.3); Red Blood Count 3.81 M/uL (4.2-5.4); White Blood Count 10.61 K/uL (4.8-10.8)
[2021-09-05] MEDS ORDERED: PHARMACY GLYCEMIC MGMT CONSULT PRN (10:29)
[2021-09-05] MEDS ORDERED: DEXTROSE 5% 1,000 ML IV SCH (10:30)
[2021-09-05] MEDS ORDERED: amLODIPine BESYLATE 5 MG TAB PO SCH (10:35)
[2021-09-05] MEDS ORDERED: GLUCAGON FOR INJ 1 MG VIAL IM PRN (10:45)
[2021-09-05] MEDS ORDERED: GLUCOSE 10 TABS/TUBE PO PRN (10:45)
[2021-09-05] MEDS ORDERED: CARBOHYDRATES FOR HYPOGLYCEMIA PO PRN (10:45)
[2021-09-05] MEDS ORDERED: DEXTROSE 50% 50 ML SYRINGE IV PRN (10:45)
[2021-09-05] MEDS ORDERED: GLUCOSE 40% GEL 15 GM TUBE PO PRN (10:45)
[2021-09-05 10:47] LABS: BUN Creatinine Ratio 21.5 (10-20); Calcium 10.9 mg/dl (8.5-10.1); Creatinine Clr Calc Pharmacy 20.5 ml/min; Est GFR (African American) 19.8 ml/min; Est GFR (Non-African American) 17.1 ml/min; Magnesium 2.6 mg/dl (1.8-2.4); Potassium 3.7 mmol/L (3.5-5.1)
[2021-09-05 10:50] LABS: Albumin Globulin Ratio 0.8 (0.9-2); Bilirubin,Total 0.4 mg/dl (0.2-1); Globulin 3.9 gm/dl (2.5-4.0); Phosphorus 4.3 mg/dl (2.5-4.9); Total Protein 6.9 gm/dl (6.4-8.2)
--- NOTE | 2021-09-05 10:54 | History & Physical Report ---
Date of Service September 05, 2021 Assessment & Plan (1) Status post cardiac catheterization: (2) Chronic renal disease, stage V: Plan: -Briefly, patient was admitted to [facility] 03/2021 for worsening renal failure, anemia, and NSTEMI in the setting of profound anemia and worsening renal function. Patient has been following closely with cardiology and nephrology. Patient began work-up for transplant evaluation which included a nuclear stress test. Nuclear stress test on 08/12/2021 revealed a moderate size reversible anteroseptal and apical perfusion defect consistent with ischemia in the LAD territory. After much coordination with cardiology, nephrology, vascular surgery (for dialysis access), it was determined initially that the best course of action would be for the patient to continue medical therapy and obtain access for dialysis. However, patient had one episode of chest pain last week while using her stationary bike. Given anginal symptoms, patient was then referred for plan cardiac cath today. No further episodes of chest pain since. Cardiac cath today revealed severe multivessel CAD for which patient needs CABG evaluation. Dr. Rizzo has discussed the case with Dr. Carranza, cardiology at [facility]. The patient has been accepted in transfer however bed placement is pending. -Case was discussed with Dr. Ma and Dr. Izaguirre -Close monitoring of renal functions/electrolytes with D5W at 80ml/hour for hydration post cardiac cath. D5W chosen due to elevated blood pressures. -Baseline creatinine runs in the high 2's, GFR ~ 15 -Strict I's and O's -Continue ASA, statin, Zetia, nitrate. Beta-tova contraindicated due to chronic resting bradycardia. (3) HTN (hypertension): Plan: -BP currently elevated, patient with history of situational hypertension. Patient currently upset with the news received this morning. -Will give evening dose of amlodipine now, continue home doses of isosorbide -Per nephrology, hold home Lasix and no diuretics are to be given until cleared by Dr. Izaguirre (4) Diabetes mellitus, type 2: Plan: -Hgb A1c 7.4 04/2021 -On Tresiba and NovoLog at home -Glycemic pharmacy consulted while on D5W (5) DVT prophylaxis: Plan: -SQ heparin Admission and Anticipated Discharge Date Admission Date: September 05, 2021 History of Present Illness Chief Complaint: Status post cardiac cath Primary Care Provider: Tara Fragoso MD 71-year-old female with PMH DM type II, CKD stage V, HTN, anemia due to CKD and GLORIA, and other problems listed below who was admitted to the hospital post cardiac cath today. Briefly, patient was admitted to [facility] 03/2021 for worsening renal failure, and NSTEMI in the setting of profound anemia and worsening renal function. Patient has been following closely with cardiology and nephrology. Patient began work-up for transplant evaluation which included a nuclear stress test. Nuclear stress test on 08/12/2021 revealed a moderate size reversible anteroseptal and apical perfusion defect consistent with ischemia in the LAD territory. After much coordination with cardiology, nephrology, vascular surgery (for dialysis access), it was determined initially that the best course of action would be for the patient to continue medical therapy and obtain access for dialysis. However, patient had one episode of chest pain last week while using her stationary bike. Given anginal symptoms, patient was then referred for plan cardiac cath today. No further episodes of chest pain since. Cardiac cath today revealed severe multivessel CAD for which patient needs CABG evaluation. Dr. Rizzo has discussed the case with Dr. Carranza, cardiology at [facility]. The patient has been accepted in transfer however bed placement is pending. At the time my exam, patient is tearful from the new she received this morning. She denies chest pain and shortness of breath. No headache, lightheadedness, dizziness. Reports she otherwise has been feeling pretty well recently. No other recent illnesses, fevers, chills. Denies abdominal pain, nausea, vomit ing, diarrhea. Continues to make urine and denies any urinary symptoms. Allergies Allergy/AdvReac Type Severity Reaction Status Date / Time amoxicillin Allergy Severe ANAPHYLAXIS Verified 09/05/21 07:41 methimazole Allergy Severe Chest Pain Verified 09/05/21 07:41 vancomycin Allergy Severe TOAN Verified 09/05/21 07:41 SYNDROME lisinopril Allergy Mild Cough Verified 09/05/21 07:41 NSAIDS (Non-Steroidal AdvReac Unknown NOT TO Verified 09/05/21 07:41 Anti-Inflamma TAKE BECAUSE OF REYNAUDS verapamil AdvReac Unknown CAN'T Verified 09/05/21 07:41 REMEMBER Home Medications Medication Instructions Recorded Confirmed Type acetaminophen 500 mg tablet 1,000 mg PO Q6H PRN 10/04/19 09/05/21 History (Tylenol Extra Strength) amlodipine 5 mg tablet 5 mg PO HS 10/04/19 09/05/21 History ferrous sulfate 325 mg (65 mg 325 mg PO QAM 10/04/19 09/05/21 History iron) tablet furosemide 40 mg tablet 40 mg PO QAM 10/04/19 09/05/21 History insulin aspart U-100 100 unit/mL 9 - 12 unit SUBCUT TID 10/04/19 09/05/21 Histo ry subcutaneous solution (Novolog U-100 Insulin aspart) isosorbide mononitrate 30 mg 30 mg PO QAM 10/04/19 09/05/21 History tablet,extended release 24 hr magnesium 250 mg tablet 250 mg PO QAM 10/04/19 09/05/21 History nitroglycerin 0.4 mg sublingual 0.4 mg SUBLINGUAL UD PRN 10/04/19 09/05/21 History tablet (Nitrostat) vitamin B complex-folic acid 0.4 1 tab PO QPM 10/04/19 09/05/21 History mg tablet (B Complex 1 (with folic acid)) allopurinol 100 mg tablet 200 mg PO QAM 01/04/20 09/05/21 History vitamin B complex-vitamin C-folic 1 tab PO HS 03/08/21 09/05/21 History acid 0.8 mg tablet (Katty-Joya) aspirin 81 mg tablet,delayed 81 mg PO QAM 03/29/21 09/05/21 History release rosuvastatin 40 mg tablet 40 mg PO QAM 03/29/21 09/05/21 History cholecalciferol (vitamin D3) 25 25 mcg PO DAILY 09/05/21 09/05/21 History mcg (1,000 unit) tablet docusate sodium 100 mg tablet 100 mg PO DAILY 09/05/21 09/05/21 History ezetimibe 10 mg tablet 10 mg PO DAILY 09/05/21 09/05/21 History insulin degludec 100 unit/mL (3 12 unit SUBCUT DAILY 09/05/21 09/05/21 History mL) subcutaneous pen (Tresiba FlexTouch U-100 insulin) loratadine 10 mg tablet 10 mg PO DAILY PRN 09/05/21 09/05/21 History Past Med/Surg History Medical History Anemia RECENT BLOOD TRANSFUSION Atrophy of right kidney 2009 [facility] u/s w/ R kidney 5.5 x 4 cm CAD (coronary artery disease) Cardiac murmur Chronic renal disease, stage V Diabetes mellitus, type 2 GERD (gastroesophageal reflux disease) HLD (hyperlipidemia) HTN (hypertension) Hx of gout Hypercalcemia Critically elevated on 03/08/21 @ 12.5 mg/dl. Normalized on 03/13/21 labs Neuropathy HANDS AND FEET Osteomyelitis of foot Renal cyst, acquired, left Surgical History H/O foot surgery RIGHT History of amputation RT FOOT GREAT TOE History of bilateral cataract extraction History of bilateral tubal ligation History of colonoscopy History of tonsillectomy Family History Father Family history of diabetes mellitus Sister Family history of diabetes mellitus Brother Family history of diabetes mellitus Grandmother (Paternal) Family history of diabetes mellitus Other No family history of adverse response to anesthesia Social History Smoking Status: Never smoker Second Hand Exposure: No; Hx Alcohol Use: No Hx Substance Use: No Preferred Language: Wolof Communication Ability: Effective Customer Support Executive Required: No Beliefs That Will Affect Care: None marital status: Current Living Situation: Spouse Current Living Situation Comment: Lives at home with current occupational status: retired Feels Safe at Home: Yes Safety Concerns: Feels Safe At This Time Assistive Devices: None Review of Systems Review of Systems: ROS per HPI, all other systems reviewed and negative Physical Exam Constitutional: WD/WN, vitals as above Eyes: PERRL, conjunctivae normal, anicteric sclerae ENMT: external ear and nose normal, oropharynx normal Respiratory: normal respiratory effort, lungs clear to auscultation Cardiovascular: Rate/Rhythm: regular rate and regular rhythm Heart Sounds: + murmur (Systolic, grade 3/6) Vessels: normal peripheral pulses Extremities: no edema Right radial wrist band intact, CSM checks intact to right hand Gastrointestinal (Abdomen): normal bowel sounds, soft, nontender, no hepatosplenomegaly Musculoskeletal: no cyanosis or clubbing, extremities motor strength 5/5 Skin: no rashes, warm and dry Neurologic: PERRL, EOMI, accommodation nl, no face palsy, no dysarthria Psychiatric: A+Ox3, euthymic affect Results & Data Results & Data ([facility]) Vital Signs (Past 12 Hours) Vital Signs Temp Pulse Resp BP BP Pulse Ox Pulse Ox 09/05/21 09:51 94 09/05/21 09:15 72 16 224/95 H 96 09/05/21 09:00 69 16 210/91 H 96 09/05/21 08:45 63 16 180/76 H 93 09/05/21 08:35 67 16 201/81 H 99 09/05/21 07:16 36.7 C 69 18 171/75 H 95 Laboratory Results Short CBC 09/05/21 Range/Units 10:06 WBC 10.61 (4.8-10.8) K/uL Hgb 11.2 L (12.0-16.0) g/dL Hct 33.2 L (37-47) % Plt Count 246 (130-400) K/uL BMP 09/05/21 10:06 Sodium 139 Potassium 3.7 Chloride 109 H Carbon Dioxide 23 BUN 57 H Creatinine 2.66 H Glucose 199 H Calcium 10.9 H Liver Function 09/05/21 Range/Units 10:06 Total Bilirubin 0.4 (0.2-1) mg/dl AST 14 L (15-37) U/L ALT 20 (12-78) U/L Alkaline Phosphatase 84 (45-117) U/L Albumin 3.0 L (3.4-5.0) gm/dl Code Status & VTE Plan VTE Prophylaxis Plan VTE Prophylaxis will be ordered: Yes
[2021-09-05] MEDS ORDERED: POTASSIUM CHLORIDE CRTAB 20 MEQ TABCR PO STA (11:12)
--- NOTE | 2021-09-05 11:42 | Pharmacy Report ---
Pharmacy Glycemic Short Note 2 - Date of Service September 05, 2021 - Glycemic Short BSG Results (Last 24 hours): 09/05/21 09/05/21 09/05/21 07:32 10:06 10:39 Glucose 199 H POC Glucose 206 H 193 H 09/05/21 11:25 Glucose POC Glucose 246 H OUTPATIENT ANTIDIABETIC REGIMEN: * Tresiba 12 units daily, Novolog 9 units with breakfast, 14 units with lunch, 12 units with dinner * A1c 6.7% ASSESSMENT: * Type 2 diabetic s/p cardiac cath. Pharmacy consulted for glycemic management * Patient started on dextrose fluids postop - plan to stress home basal insulin and increase to 15 units x 1 now (25% increase) * Plan to utilize stress of 2 dosing for novolog for now. Hesitant to be too aggressive as patient with underlying renal disease/elevated Scr PLAN FOR INPATIENT GLYCEMIC CONTROL: * Hold outpatient oral diabetes medications * Basal insulin * Lantus 15 units x 1 * Bolus insulin * NovoLog per scale ACHS or Q6hrs while NPO * Goal Range: Low 110 mg/dL - High 140 mg/dL * Correction Factor: 30 mg/dL/unit * Nutritional / Prandial insulin per carb ratio of 1 unit per 9 grams CHO consumed PLAN FOR DISCHARGE: * A1c 6.7% - goal <7% * Reasonable to continue home diabetes regimen on discharge as long as patient is not reporting frequent hyper/hypoglycemia at home
[2021-09-05] MEDS ORDERED: INSULIN GLARGINE SOLOSTAR 100 UNITS/ML 3 ML PEN SC ONE (11:45)
[2021-09-05] MEDS: INSULIN ASPART 100 UNITS/ML 3 ML PEN SC SCH ×2 (12:09→16:52)
--- NOTE | 2021-09-05 12:39 | Cardiology Consultation ---
Date of Consultation September 05, 2021 Assessment & Plan (1) Exertional angina: (2) Abnormal nuclear stress test: (3) Chronic renal disease, stage V: (4) CAD (coronary artery disease): The patient is currently clinically stable. Nephrology is helping with the case. As soon as she has a bed at [facility] she will be transferred. History of Present Illness Attending Physician: Estuardo Mcnulty MD History of Present Illness This is a 71-year-old female with a history of coronary artery disease, end- stage kidney disease and an abnormal stress test who underwent a cardiac catheterization this morning and was found to have severe coronary artery disease requiring coronary artery bypass surgery. She has been admitted post procedure and is awaiting a bed at [facility]. She has no complaints. Allergies Allergy/AdvReac Type Severity Reaction Status Date / Time amoxicillin Allergy Severe ANAPHYLAXIS Verified 09/05/21 07:41 methimazole Allergy Severe Chest Pain Verified 09/05/21 07:41 vancomycin Allergy Severe TOAN Verified 09/05/21 07:41 SYNDROME lisinopril Allergy Mild Cough Verified 09/05/21 07:41 NSAIDS (Non-Steroidal AdvReac Unknown NOT TO Verified 09/05/21 07:41 Anti-Inflamma TAKE BECAUSE OF REYNAUDS verapamil AdvReac Unknown CAN'T Verified 09/05/21 07:41 REMEMBER Home Medications Medication Instructions Recorded Confirmed Type acetaminophen 500 mg tablet 1,000 mg PO Q6H PRN 10/04/19 09/05/21 History (Tylenol Extra Strength) amlodipine 5 mg tablet 5 mg PO HS 10/04/19 09/05/21 History ferrous sulfate 325 mg (65 mg 325 mg PO QAM 10/04/19 09/05/21 History iron) tablet furosemide 40 mg tablet 40 mg PO QAM 10/04/19 09/05/21 History insulin aspart U-100 100 unit/mL 9 - 12 unit SUBCUT TID 10/04/19 09/05/21 History subcutaneous solution (Novolog U-100 Insulin aspart) isosorbide mononitrate 30 mg 30 mg PO QAM 10/04/19 09/05/21 History tablet,extended release 24 hr magnesium 250 mg tablet 250 mg PO QAM 10/04/19 09/05/21 History nitroglycerin 0.4 mg sublingual 0.4 mg SUBLINGUAL UD PRN 10/04/19 09/05/21 History tablet (Nitrostat) vitamin B complex-folic acid 0.4 1 tab PO QPM 10/04/19 09/05/21 History mg tablet (B Complex 1 (with folic acid)) allopurinol 100 mg tablet 200 mg PO QAM 01/04/20 09/05/21 History vitamin B complex-vitamin C-folic 1 tab PO HS 03/08/21 09/05/21 History acid 0.8 mg tablet (Katty-Joya) aspirin 81 mg tablet,delayed 81 mg PO QAM 03/29/21 09/05/21 History release rosuvastatin 40 mg tablet 40 mg PO QAM 03/29/21 09/05/21 History cholecalciferol (vitamin D3) 25 25 mcg PO DAILY 09/05/21 09/05/21 History mcg (1,000 unit) tablet docusate sodium 100 mg tablet 100 mg PO DAILY 09/05/21 09/05/21 History ezetimibe 10 mg tablet 10 mg PO DAILY 09/05/21 09/05/21 History insulin degludec 100 unit/mL (3 12 unit SUBCUT DAILY 09/05/21 09/05/21 History mL) subcutaneous pen (Tresiba FlexTouch U-100 insulin) loratadine 10 mg tablet 10 mg PO DAILY PRN 09/05/21 09/05/21 History Patient History Medical History Anemia RECENT BLOOD TRANSFUSION Atrophy of right kidney 2009 [facility] u/s w/ R kidney 5.5 x 4 cm CAD (coronary artery disease) Cardiac murmur Chronic renal disease, stage V Diabetes mellitus, type 2 GERD (gastroesophageal reflux disease) HLD (hyperlipidemia) HTN (hypertension) Hx of gout Hypercalcemia Critically elevated on 03/08/21 @ 12.5 mg/dl. Normalized on 03/13/21 labs Neuropathy HANDS AND FEET Osteomyelitis of foot Renal cyst, acquired, left Surgical History H/O foot surgery RIGHT History of amputation RT FOOT GREAT TOE History of bilateral cataract extraction History of bilateral tubal ligation History of colonoscopy History of tonsillectomy Family History Father Family history of diabetes mellitus Sister Family history of diabetes mellitus Brother Family history of diabetes mellitus Grandmother (Paternal) Family history of diabetes mellitus Other No family history of adverse response to anesthesia Social History Smoking Status: Never smoker Second Hand Exposure: No; Hx Alcohol Use: No Hx Substance Use: No Preferred Language: Venezuelan Communication Ability: Effective Industrial Design Intern Required: No Beliefs That Will Affect Care: None marital status: Current Living Situation: Spouse Current Living Situation Comment: Lives at home with current occupational status: retired Feels Safe at Home: Yes Safety Concerns: Feels Safe At This Time Assistive Devices: None Review of Systems Review of Systems: Review of Systems: See HPI for pertinent positives. All other 10 point review of systems are negative. Physical Exam Physical Exam: General: no acute distress and stated age Head: normocephalic, no masses, lesions, tenderness or abnormalities Eyes: conjunctiva are pink and non-injected, sclera clear Neck: supple, no adenopathy, no bruits, normal jugular venous pulse, no hepatojugular reflux Chest: normal shape and normal respiratory effort Lungs: clear to auscultation and percussion Cardiac Exam: - regular rate & rhythm, no murmurs gallops or rubs - normal S1, normal S2 Pulses: 2(+) throughout Abdomen: abdomen soft, non-tender, no abnormal masses and no hepatosplenomegaly Musculoskeletal: no gait disturbance, no joint inflammation, no deforming arthritis Extremities: no edema and no cyanosis Neuro: grossly normal exam Results & Data ([facility]) Vital Signs (Past 12 Hours) Vital Signs Temp Pulse Resp BP BP Pulse Ox Pulse Ox 09/05/21 10:15 76 16 183/80 H 96 09/05/21 10:00 75 16 183/80 H 95 09/05/21 09:51 94 09/05/21 09:45 70 15 212/112 H 95 09/05/21 09:30 36.4 C L 66 16 207/89 H 96 09/05/21 09:15 72 16 224/95 H 96 09/05/21 09:00 69 16 210/91 H 96 09/05/21 08:45 63 16 180/76 H 93 09/05/21 08:35 67 16 201/81 H 99 09/05/21 07:16 36.7 C 69 18 171/75 H 95 Laboratory Results Laboratory Results - last 24 hr 09/05/21 09/05/21 09/05/21 07:32 10:06 10:06 WBC 10.61 RBC 3.81 L Hgb 11.2 L Hct 33.2 L MCV 87.1 MCH 29.4 MCHC 33.7 RDW Std Deviation 48.4 H RDW Coeff of Fanta 15.2 H Plt Count 246 MPV 8.9 Immature Gran % (Auto) 0.3 Neut % (Auto) 76.6 Lymph % (Auto) 12.4 [place] % (Auto) 8.6 Eos % (Auto) 1.9 Baso % (Auto) 0.2 Neut # (Auto) 8.13 H Lymph # (Auto) 1.32 [place] # (Auto) 0.91 H Eos # (Auto) 0.20 Baso # (Auto) 0.02 Immature Gran # (Auto) 0.03 H Sodium 139 Potassium 3.7 Chloride 109 H Carbon Dioxide 23 Anion Gap 8.0 BUN 57 H Creatinine 2.66 H Est Cr Clr Drug Dosing 20.5 Est GFR ( Amer) 19.8 Est GFR (Non-Af Amer) 17.1 BUN/Creatinine Ratio 21.5 H Glucose 199 H POC Glucose 206 H Calcium 10.9 H Phosphorus 4.3 Magnesium 2.6 H Total Bilirubin 0.4 AST 14 L ALT 20 Alkaline Phosphatase 84 Total Protein 6.9 Albumin 3.0 L Globulin 3.9 Albumin/Globulin Ratio 0.8 L 09/05/21 09/05/21 10:39 11:25 WBC RBC Hgb Hct MCV MCH MCHC RDW Std Deviation RDW Coeff of Fanta Plt Count MPV Immature Gran % (Auto) Neut % (Auto) Lymph % (Auto) [place] % (Auto) Eos % (Auto) Baso % (Auto) Neut # (Auto) Lymph # (Auto) [place] # (Auto) Eos # (Auto) Baso # (Auto) Immature Gran # (Auto) Sodium Potassium Chloride Carbon Dioxide Anion Gap BUN Creatinine Est Cr Clr Drug Dosing Est GFR ( Amer) Est GFR (Non-Af Amer) BUN/Creatinine Ratio Glucose POC Glucose 193 H 246 H Calcium Phosphorus Magnesium Total Bilirubin AST ALT Alkaline Phosphatase Total Protein Albumin Globulin Albumin/Globulin Ratio Medications Administered Current Inpatient Medications Acetaminophen (Acetaminophen 325 Mg Tab) 650 mg PO Q4H PRN PRN Reason: Pain or Fever Stop: 10/05/21 09:50 Allopurinol (Allopurinol 100 Mg Tab) 200 mg PO QAM [facility] Stop: 10/06/21 08:59 Amlodipine Besylate (Amlodipine Besylate 5 Mg Tab) 5 mg PO HS [facility] Stop: 10/05/21 10:34 Last Admin: 09/05/21 11:53 Dose: 5 mg Documented by: Aspirin (Aspirin 81 Mg Ectab) 81 mg PO QAM [facility] Stop: 10/06/21 08:59 Dextrose (Dextrose 50% 50 Ml Syringe) 25 - 50 ml IV UD PRN; Protocol PRN Reason: Hypoglycemia Protocol Stop: 10/05/21 10:44 Docusate Sodium (Docusate Sodium 100 Mg Cap) 100 mg PO DAILY [facility] Stop: 10/06/21 08:59 Ezetimibe (Ezetimibe 10 Mg Tablet) 10 mg PO DAILY [facility] Stop: 10/06/21 08:59 Ferrous Sulfate (Ferrous Sulfate 325 Mg Tab) 325 mg PO QAM [facility] Stop: 10/06/21 08:59 Glucagon (Glucagon For Inj 1 Mg Vial) 1 mg IM UD PRN; Protocol PRN Reason: Hypoglycemia Protocol Stop: 10/05/21 10:44 Glucose (Glucose 40% Gel 15 Gm Tube) 15 - 30 gm PO UD PRN; Protocol PRN Reason: Hypoglycemia Protocol Stop: 10/05/21 10:44 Glucose (Glucose 10 Tabs/Tube) 4 - 8 tabs PO UD PRN; Protocol PRN Reason: Hypoglycemia Protocol Stop: 10/05/21 10:44 Heparin Sodium (Porcine) (Heparin Sod 5,000 Unit/0.5 Ml Vial) 5,000 units SQ Q8 [facility] Stop: 10/05/21 13:59 Dextrose (D5w) 1,000 mls @ 80 mls/hr IV .[id number] [facility] Stop: 10/05/21 10:29 Last Admin: 09/05/21 12:21 Dose: 80 mls/hr Documented by: Insulin Aspart (Insulin Aspart 100 Units/Ml 3 Ml Pen) 0 units SC ACHS [facility] Stop: 10/05/21 11:29 Last Admin: 09/05/21 12:09 Dose: 11 units Documented by: Isosorbide Mononitrate (Isosorbide [place] Extended Rel 30 Mg Tabcr) 30 mg PO QAM [facility] Stop: 10/06/21 08:59 Magnesium Oxide (Magnesium Oxide 400 Mg Tab) 400 mg PO QAM [facility] Stop: 10/06/21 08:59 Miscellaneous (Carbohydrates For Hypoglycemia ) 15 - 30 gm PO UD PRN PRN Reason: Hypoglycemia Treatment Stop: 10/05/21 10:44 Miscellaneous Information (Pharmacy Glycemic Mgmt Consult) 1 ea N/A UD PRN PRN Reason: Consult Stop: 10/05/21 10:28 Nitroglycerin (Nitroglycerin Sl 0.4 Mg/Tab Tab) 0.4 mg SL UD PRN PRN Reason: Chest Pain Stop: 10/05/21 09:50 Rosuvastatin Calcium (Rosuvastatin Calcium 20 Mg Tab) 40 mg PO QAM [facility] Stop: 10/06/21 08:59 Vitamin B Complex (Vitamin B Complex Tab) 1 tab PO HS [facility] Stop: 10/05/21 20:59 Vitamin D (Cholecalciferol 1,000 Units 25 Mcg Tab) 1,000 units PO DAILY [facility] Stop: 10/06/21 08:59
[2021-09-05] MEDS ORDERED: HEPARIN SOD 5,000 UNIT/0.5 ML VIAL SQ SCH (14:00)
--- NOTE | 2021-09-05 15:02 | Nephrology Consultation ---
Date of Consultation September 05, 2021 Assessment & Plan (1) Chronic renal disease, stage V: CKD 5/4 w/ 1/2 gm proteinuria in setting of solitary kidney, currently at baseline -at risk for contrast induced nephropathy next 48-72 hrs, though dye amount used was minimized today: continue D5W (rather than isotonic fluids since she is already hypertensive) at 80 ML hourly, 1.5L. she did not have any pre procedural fluids, so would be extra generous w/ post procedure hydration > say 15 hrs total at 1 ml/kg/hr as tolerated; volume status dry if anything on eval and pharmacy aware/ following BG -hold diuretic -daily bmp -avoid other nephrotoxins unless life/limbsaving -hypercalcemia may well improve w/ hydration -gave 20 mEq po K x 1 -at risk for progression to needing dialysis > favor if possible urgent start PD though ICHD a possibility as well (not sure who would help her lift PD bags for example if she's post CABG and starting PD); my hope is that she may get through this without arriving at the need for dialysis -anemia is acceptable today but would monitor (2) CAD (coronary artery disease): awaiting transfer for CABG eval (3) HTN (hypertension): at least some of this is situational (she is jose l prone to that); also BP taken on leg, not arms -avoid natalie/arb, avoid BB unless in consultation with cardiology, avoid diuretics next 48 hrs -would observe for now, monitoring jose l closely for sx, and continue OP amlodipine; can always add another 5 mg daily dose; could consider central alpha 2 agonist or / and cautious introduction (ideally at least 48 hrs after cath) of nadya antagonist History of Present Illness Reason for Consultation: ESRD not on dialysis, s/p cardiac cath Requesting Physician: Dr Rizzo Attending Physician: Estuardo Mcnulty MD History of Present Illness 71-year-old female whom I am asked to evaluate for CKD and blood pressure management after she was admitted for cardiac catheterization this morning. Past medical history includes atrophic right kidney, CKD 5/4 w/ 1/2 gm proteinuria not on dialysis, NSTEMI March 2021, CAD, bifascicular block w/ hx unacceptable bradycardia on beta blockers, hypertension since her 40s, diabetes since 2009, neuropathy with ambulatory dysfunction, gout. Admitted here early 03/2021 w/ hgb 7.3, hypercalcemia, SHANNAN on CKD and NSTEMI: no anginal sx that admission, NSTEMI attributed to myocardial strain, paraproteinemia w/u negative. She had 3 units pRBC that admission. EGD 04/2021 showed mild gastritis and antral intestinal metaplasia. Her eGFR since that d/c has ranged 12-17ml/min, again in the setting of solitary kidney. Earlier this month she had a nuclear stress test as part of a kidney transplant work-up remarkable for LAD territory ischemia without angina. Subsequently, about 10 days back, the patient developed chest tightness and dyspnea while using her stationary bike with resolution of symptoms after sublingual nitroglycerin. The decision was made in consultation with cardiology, nephrology, and vascular surgery to move forward with cardiac cath. The cardiac cath showed severe multivessel coronary disease. She had 25 mL contrast for the procedure. The patient is awaiting transfer to [facility] for CT surgery consultation for possible CABG, pending an available bed. The patient is understandably anxious about the new diagnosis and pending transfer. She denies dyspnea, orthopnea, chest pain, palpitations, edema, new/worrisome voiding concerns, or abdominal pain. She is on RA, with some elevated BP (taken on her leg b/c upper limb restrictions) 160-220 systolic w/ no angina, dyspnea, abdominal pain, N, focal numbness/weakness, or confusion. Her PM amlodipine dose was given. She was also started on D5W at 80 mL hourly at my request and K gently repleted. She is interested in peritoneal dialysis if possible but will do in center hemo if needed; she does not have any dialysis access currently. Up until she had angina, we had been trying to coordinate possible PCI (with subsequent dual anti platelet therapy)/cardiac cath as anticipated part of transplant work up with obtaining dialysis access. Allergies Allergy/AdvReac Type Severity Reaction Status Date / Time amoxicillin Allergy Severe ANAPHYLAXIS Verified 09/05/21 07:41 methimazole Allergy Severe Chest Pain Verified 09/05/21 07:41 vancomycin Allergy Severe TOAN Verified 09/05/21 07:41 SYNDROME lisinopril Allergy Mild Cough Verified 09/05/21 07:41 NSAIDS (Non-Steroidal AdvReac Unknown NOT TO Verified 09/05/21 07:41 Anti-Inflamma TAKE BECAUSE OF REYNAUDS verapamil AdvReac Unknown CAN'T Verified 09/05/21 07:41 REMEMBER Home Medications Medication Instructions Recorded Confirmed Type acetaminophen 500 mg tablet 1,000 mg PO Q6H PRN 10/04/19 09/05/21 History (Tylenol Extra Strength) amlodipine 5 mg tablet 5 mg PO HS 10/04/19 09/05/21 History ferrous sulfate 325 mg (65 mg 325 mg PO QAM 10/04/19 09/05/21 History iron) tablet furosemide 40 mg tablet 40 mg PO QAM 10/04/19 09/05/21 History insulin aspart U-100 100 unit/mL 9 - 12 unit SUBCUT TID 10/04/19 09/05/21 History subcutaneous solution (Novolog U-100 Insulin aspart) isosorbide mononitrate 30 mg 30 mg PO QAM 10/04/19 09/05/21 History tablet,extended release 24 hr magnesium 250 mg tablet 250 mg PO QAM 10/04/19 09/05/21 History nitroglycerin 0.4 mg sublingual 0.4 mg SUBLINGUAL UD PRN 10/04/19 09/05/21 History tablet (Nitrostat) vitamin B complex-folic acid 0.4 1 tab PO QPM 10/04/19 09/05/21 History mg tablet (B Complex 1 (with folic acid)) allopurinol 100 mg tablet 200 mg PO QAM 01/04/20 09/05/21 History vitamin B complex-vitamin C-folic 1 tab PO HS 03/08/21 09/05/21 History acid 0.8 mg tablet (Katty-Joya) aspirin 81 mg tablet,delayed 81 mg PO QAM 03/29/21 09/05/21 History release rosuvastatin 40 mg tablet 40 mg PO QAM 03/29/21 09/05/21 History cholecalciferol (vitamin D3) 25 25 mcg PO DAILY 09/05/21 09/05/21 History mcg (1,000 unit) tablet docusate sodium 100 mg tablet 100 mg PO DAILY 09/05/21 09/05/21 History ezetimibe 10 mg tablet 10 mg PO DAILY 09/05/21 09/05/21 History insulin degludec 100 unit/mL (3 12 unit SUBCUT DAILY 09/05/21 09/05/21 History mL) subcutaneous pen (Tresiba FlexTouch U-100 insulin) loratadine 10 mg tablet 10 mg PO DAILY PRN 09/05/21 09/05/21 History Patient History Medical History Anemia RECENT BLOOD TRANSFUSION Atrophy of right kidney 2020 [facility] u/s : no R kidney seen CAD (coronary artery disease) Cardiac murmur Chronic renal disease, stage V not on dialysis; eGFR 12-17 summer 2020 Diabetes mellitus, type 2 GERD (gastroesophageal reflux disease) HLD (hyperlipidemia) HTN (hypertension) Hx of gout Hypercalcemia Critically elevated on 03/08/21 @ 12.5 mg/dl. Normalized on 03/13/21 labs Neuropathy HANDS AND FEET Osteomyelitis of foot Renal cyst, acquired, left Surgical History H/O foot surgery RIGHT History of amputation RT FOOT GREAT TOE History of bilateral cataract extraction History of bilateral tubal ligation History of colonoscopy History of tonsillectomy Family History Father Family history of diabetes mellitus Sister Family history of diabetes mellitus Brother Family history of diabetes mellitus Grandmother (Paternal) Family history of diabetes mellitus Other No family history of adverse response to anesthesia Social History Smoking Status: Never smoker Second Hand Exposure: No; Hx Alcohol Use: No Hx Substance Use: No Preferred Language: Syriac Communication Ability: Effective Motion Picture Cameraman Required: No Beliefs That Will Affect Care: None marital status: Current Living Situation: Spouse Current Living Situation Comment: Lives at home with current occupational status: retired How many Children do You have: 2 Feels Safe at Home: Yes Safety Concerns: Feels Safe At This Time Assistive Devices: Cane, Walker and Wheelchair Review of Systems Review of Systems: All systems reviewed & are unremarkable except as noted in HPI & below Physical Exam Constitutional: well developed, well nourished and cooperative; no acute di stress Eyes: EOM intact bilaterally ENMT: Ears: no external ear abnormality Nose: no external nose abnormality Mouth: + dry oral mucous membranes Neck: no nuchal rigidity Respiratory: normal respiratory effort Auscultation: + diminished lung sounds Cardiovascular: Rate/Rhythm: regular rate and regular rhythm Heart Sounds: normal S1 and normal S2 Extremities: no edema Gastrointestinal (Abdomen): Inspection/Auscultation: normal bowel sounds Percussion/Palpation: abdomen soft; abdomen nontender Musculoskeletal: Extremities: strength 5/5 throughout Skin: no rashes, warm and dry Neurologic: frank, fluent speech, no tremor Psychiatric: Orientation: alert and oriented x 3 Eye Contact: good eye contact Speech: normal rate/rhythm/volume of speech Results & Data ([facility]) Vital Signs (Past 12 Hours) Vital Signs Temp Pulse Resp BP BP Pulse Ox Pulse Ox 09/05/21 13:52 64 17 168/73 H 96 09/05/21 12:52 76 16 148/78 H 96 09/05/21 12:00 73 16 155/76 H 95 09/05/21 10:45 73 15 179/92 H 94 09/05/21 10:15 76 16 183/80 H 96 09/05/21 10:00 75 16 183/80 H 95 09/05/21 09:51 94 09/05/21 09:45 70 15 212/112 H 95 09/05/21 09:30 36.4 C L 66 16 207/89 H 96 09/05/21 09:15 72 16 224/95 H 96 09/05/21 09:00 69 16 210/91 H 96 09/05/21 08:45 63 16 180/76 H 93 09/05/21 08:35 67 16 201/81 H 99 09/05/21 07:16 36.7 C 69 18 171/75 H 95 Laboratory Results 09/05/21 10:06 09/05/21 10:06 Diagnostic Findings Cath report reviewed
--- NOTE | 2021-09-05 16:13 | Discharge Summary ---
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 Briefly, patient was admitted to [facility] 03/2021 for worsening renal failure, and NSTEMI in the setting of profound anemia and worsening renal function. Patient has been following closely with cardiology and nephrology. Patient began work-up for transplant evaluation which included a nuclear stress test. Nuclear stress test on 08/12/2021 revealed a moderate size reversible anteroseptal and apical perfusion defect consistent with ischemia in the LAD territory. After much coordination with cardiology, nephrology, vascular surgery (for dialysis access), it was determined initially that the best course of action would be for the patient to continue medical therapy and obtain access for dialysis. However, patient had one episode of chest pain last week while using her stationary bike. Given anginal symptoms, patient was then referred for plan cardiac cath today. No further episodes of chest pain since. Cardiac cath today revealed severe multivessel CAD for which patient needs CABG evaluation. Dr. Rizzo has discussed the case with Dr. Carranza, cardiology at [facility]. The patient has been accepted in transfer however bed placement is pending. At the time my exam, patient is tearful from the new she received this morning. She denies chest pain and shortness of breath. No headache, lightheadedness, dizziness. Reports she otherwise has been feeling pretty well recently. No other recent illnesses, fevers, chills. Denies abdominal pain, nausea, vomiting, diarrhea. Continues to make urine and denies any urinary symptoms. Admission Exam Per Admitting Provider Constitutional: WD/WN, vitals as above Eyes: PERRL, conjunctivae normal, anicteric sclerae ENMT: external ear and nose normal, oropharynx normal Respiratory: normal respiratory effort, lungs clear to auscultation Cardiovascular: Rate/Rhythm: regular rate and regular rhythm Heart Sounds: + murmur (Systolic, grade 3/6) Vessels: normal peripheral pulses Extremities: no edema Right radial wrist band intact, CSM checks intact to right hand Gastrointestinal (Abdomen): normal bowel sounds, soft, nontender, no hepatosplenomegaly Musculoskeletal: no cyanosis or clubbing, extremities motor strength 5/5 Skin: no rashes, warm and dry Neurologic: PERRL, EOMI, accommodation nl, no face palsy, no dysarthria Psychiatric: A+Ox3, euthymic affect Principal Diagnosis Multivessel CAD Discharge Data Allergies Allergy/AdvReac Type Severity Reaction Status Date / Time amoxicillin Allergy Severe ANAPHYLAXIS Verified 09/05/21 07:41 methimazole Allergy Severe Chest Pain Verified 09/05/21 07:41 vancomycin Allergy Severe TOAN Verified 09/05/21 07:41 SYNDROME lisinopril Allergy Mild Cough Verified 09/05/21 07:41 NSAIDS (Non-Steroidal AdvReac Unknown NOT TO Verified 09/05/21 07:41 Anti-Inflamma TAKE BECAUSE OF REYNAUDS verapamil AdvReac Unknown CAN'T Verified 09/05/21 07:41 REMEMBER Consultations Cardiology, Dr. Ma Nephrology, Dr. Izaguirre Procedures Performed Operation Date: 09/05/21 08:00 Actual Procedures p Cath, Left with Cors and Vent - Yamilet Akins MD s Cineradiography w/Routine Exam - Yamilet Akins MD Hospital Course (1) Status post cardiac catheterization: (2) Chronic renal disease, stage V: -Briefly, patient was admitted to [facility] 03/2021 for worsening renal failure, anemia, and NSTEMI in the setting of profound anemia and worsening renal function. Patient has been following closely with cardiology and nephrology. Patient began work-up for transplant evaluation which included a nuclear stress test. Nuclear stress test on 08/12/2021 revealed a moderate size reversible anteroseptal and apical perfusion defect consistent with ischemia in the LAD territory. After much coordination with cardiology, nephrology, vascular surgery (for dialysis access), it was determined initially that the best course of action would be for the patient to continue medical therapy and obtain access for dialysis. However, patient had one episode of chest pain last week while using her stationary bike. Given anginal symptoms, patient was then referred for plan cardiac cath today. No further episodes of chest pain since. Cardiac cath today revealed severe multivessel CAD for which patient needs CABG evaluation. Dr. Rizzo has discussed the case with Dr. Carranza, cardiology at [facility]. The patient has been accepted in transfer. -Close monitoring of renal functions/electrolytes with D5W at 80ml/hour for hydration post cardiac cath. D5W chosen due to elevated blood pressures. -Baseline creatinine runs in the high 2's, GFR ~ 15 -Strict I's and O's -Continue ASA, statin, Zetia, nitrate. Beta-tova contraindicated due to chronic resting bradycardia. (3) HTN (hypertension): -BP currently elevated, patient with history of situational hypertension. Patient currently upset with the news received this morning. -Will give evening dose of amlodipine now, continue home doses of isosorbide. BP improved in the afternoon. -Per nephrology, hold home Lasix and no diuretics are to be given until cleared by Dr. Izaguirre (4) Diabetes mellitus, type 2: -Hgb A1c 7.4 04/2021 -On Tresiba and NovoLog at home -Glycemic pharmacy consulted while on D5W Total Time Total Time Spent Total Time Spent (In Minutes): 35 Discharge Plan Discharge Items Patient Disposition: Transfer Acute Care Hospital Reason For Visit: Exertional Angina Discharge Diagnosis: Multi-Vessel CAD Activity: As commented below Activity Comment: OOB w/ assistance Non-emergency contact: Primary Care Provider, P[employer] Monitor and [employer] Call non-emergency contact if: you have any medication questions and your symptoms worsen Follow-up/Referrals: Tara Orta MD [Primary Care Provider] - Diet: Carb Consistent or DM2, Dialysis Renal, Heart Healthy and Low Sodium (2gm) Addtl Attending Provider Instructions: Patient presented for planned cardiac cath today that demonstrated multivessel CAD. Needs evaluation for CABG. Transfer to [facility]. ACTIVITY RECOMMENDATIONS: It is common to feel weak and fatigue for a few days. * Do not drive or operate any motorized equipment for the next three days. * Limit stair usage (2 or 3 trips a day only) for the next three days. * Do not lift anything heavier than 10 pounds for the next three days. * Do not engage in vigorous exercise or any sports for the next five days. * You may shower the day after your procedure, but do not immerse the area for three days. Cleanse the site gently with soap and water. SPECIAL CARE INSTRUCTIONS: * You may replace the pressure dressing or band-aid the morning after the procedure. * After your procedure, it is normal to have a small bruise or small lump at the site. Examine your site daily for any change in the bruise or lump, redness, swelling, drainage or numbness. Notify your doctor if any change. BLEEDING: * If there is a small amount of bleeding at the site, lie down and apply firm pressure with a clean cloth for ten minutes. When the bleeding stops, lie quietly keeping the procedure limb straight for six hours. Notify your doctor as soon as possible. * If the bleeding does not stop after ten minutes or if there is a large amount of bleeding or spurting, call 911 immediately. Continue to lie down and hold firm pressure until help arrives. SKIN IRRITATION: * You may experience some redness and/or swelling in the area where radiation was administered. If any skin irritation occurs, please contact your family physician. FOLLOW UP VISIT: Keep any scheduled doctor appointments. Pending Studies at Discharge: No Stand-Alone Forms: My [facility] Skilled Items Patient informed of condition?: Yes DNR: No Discharge Level of Care: Other Communicable Disease: No Discharge Prognosis: Stable Lines: Peripheral IV Urinary Catheter: No Medications and DC Order Prescriptions: Continued vitamin B complex-folic acid [B Complex 1 (with folic acid)] 0.4 mg Tablet 1 tab PO QPM RF: 0 isosorbide mononitrate 30 mg Tablet Extended Release 24 Hr 30 mg PO QAM RF: 0 amlodipine 5 mg Tablet 5 mg PO HS RF: 0 insulin aspart U-100 [Novolog U-100 Insulin aspart] 100 unit/mL Solution 9 - 12 unit SUBCUT TID RF: 0 magnesium 250 mg Tablet 250 mg PO QAM RF: 0 acetaminophen [Tylenol Extra Strength] 500 mg Tablet 1,000 mg PO Q6H PRN (Reason: Pain) RF: 0 ferrous sulfate 325 mg (65 mg iron) Tablet 325 mg PO QAM RF: 0 nitroglycerin [Nitrostat] 0.4 mg Tablet, Sublingual 0.4 mg sublingual UD PRN (Reason: Pain) RF: 0 allopurinol 100 mg Tablet 200 mg PO QAM RF: 0 docusate sodium 100 mg Tablet 100 mg PO DAILY RF: 0 ezetimibe 10 mg Tablet 10 mg PO DAILY RF: 0 loratadine 10 mg Tablet 10 mg PO DAILY PRN (Reason: Allergy Symptoms) RF: 0 cholecalciferol (vitamin D3) 25 mcg (1,000 unit) Tablet 25 mcg PO DAILY RF: 0 Tresiba FlexTouch U-100 100 unit/mL (3 mL) insulin pen 12 unit SUBCUT DAILY RF: 0 Katty-Joya 0.8 mg Tablet 1 tab PO HS RF: 0 rosuvastatin 40 mg Tablet 40 mg PO QAM RF: 0 aspirin 81 mg Tablet,Delayed Release (Dr/Ec) 81 mg PO QAM RF: 0 Discontinued furosemide 40 mg Tablet 40 mg PO QAM RF: 0 Discharge Orders: Discharge Order (Routine); Ordered 09/05/21 Ordered By: Elsi Sales Admission Data Admit Date/Time: 09/05/21 09:09 Attending Provider: Estuardo Mcnulty Admit Provider: Estuardo Mcnulty Primary Care Provider: Tara Orta Other Providers: Adelso Rizzo ; Yamilet Akins ; Tom Ma ; Ale Izaguirre Other Interventions: Discharge Summary Assessment (RN) Last Done: 09/05/21 16:19 Supervising Physician Co-Signing Physician Notes Pt seen and examined by me , care coordinated with Vanessa TSE, pls refer to her note above for further detail. Pt is currently s/p cardiac cath. She is resting in bed in NAD. She is awake, alert and oriented and answering questions appropriately. Lung sounds clear to auscultation b/l w/o any wheezing, rhonchi, crackles. Heart sounds regular, + syst. murmur. Abdomen soft, nontender, non- distended. No LE edema and pt moves extremities spontaneously and w/o difficulty. Plan to transfer to [facility] given multivessel CAD. Care also coordinated w/ nephrology. Jaden Mcnulty MD
[2021-09-05] MEDS ORDERED: VITAMIN B COMPLEX TAB PO SCH (21:00)
[2021-09-06] MEDS ORDERED: INSULIN ASPART 100 UNITS/ML 3 ML PEN SC SCH
[2021-09-06] MEDS ORDERED: MAGNESIUM OXIDE 400 MG TAB PO SCH (09:00)
[2021-09-06] MEDS ORDERED: CHOLECALCIFEROL 1,000 UNITS 25 MCG TAB PO SCH (09:00)
[2021-09-06] MEDS ORDERED: DOCUSATE SODIUM 100 MG CAP PO SCH (09:00)
[2021-09-06] MEDS ORDERED: EZETIMIBE 10 MG TABLET PO SCH (09:00)
[2021-09-06] MEDS ORDERED: ISOSORBIDE MONO EXTENDED REL 30 MG TABCR PO SCH (09:00)
[2021-09-06] MEDS ORDERED: allopurinoL 100 MG TAB PO SCH (09:00)
[2021-09-06] MEDS ORDERED: FERROUS SULFATE 325 MG TAB PO SCH (09:00)
[2021-09-06] MEDS ORDERED: ASPIRIN 81 MG ECTAB PO SCH (09:00)
[2021-09-06] MEDS ORDERED: ROSUVASTATIN CALCIUM 20 MG TAB PO SCH (09:00)
== END 2021-09-05 17:00 | disposition short-term general hospital (02) | DRG 287 ==
LOC: CC 06:59 → 2S 09:09
DX: Z79.82 Long term (current) use of aspirin; I12.0 Hypertensive chronic kidney disease with stage 5 chronic kidney disease or end stage renal disease; D63.1 Anemia in chronic kidney disease; Z87.891 Personal history of nicotine dependence; N26.1 Atrophy of kidney (terminal); E11.22 Type 2 diabetes mellitus with diabetic chronic kidney disease; I25.2 Old myocardial infarction; Z88.0 Allergy status to penicillin; N18.5 Chronic kidney disease, stage 5; E78.1 Pure hyperglyceridemia; E78.5 Hyperlipidemia, unspecified; Z88.8 Allergy status to other drugs, medicaments and biological substances; Z79.899 Other long term (current) drug therapy; Z88.6 Allergy status to analgesic agent; Z79.4 Long term (current) use of insulin; I25.118 Atherosclerotic heart disease of native coronary artery with other forms of angina pectoris; R94.39 Abnormal result of other cardiovascular function study; D50.9 Iron deficiency anemia, unspecified; Z89.411 Acquired absence of right great toe; Z88.1 Allergy status to other antibiotic agents